=== PATIENT | male | born 1955 | race Caucasian/White ===

== ENCOUNTER 2020-08-02 10:12 | Inpatient (IN) | payer SELFPAY ==
[~2020-08-02] VITALS: Ht 188 cm; Wt 121.3 kg
[2020-08-02] MEDS ORDERED: ACETAMINOPHEN 500 MG TAB (TYLENOL) PO STA (10:22)
--- NOTE | 2020-08-02 10:22 | ED Integumentary General ---
General Chief Complaint: Skin/Wound Problems Stated Complaint: RT FOOT INFECTION History of Present Illness Date Seen by Provider: Aug 02, 2020 Time Seen by Provider: 10:22 Initial Comments 65-year-old male presents with infection of the right foot. Patient has been having an ulceration/drainage since about February. Reports over the about the last week to 2 weeks has got signally worse. He is now having increased redness pain and drainage. Patient has a history of osteomyelitis in the left foot from a similar ulcer in the past. Patient is diabetic and reports that his "sugars have been running high" patient was seen by his primary care provider today and found to have a 101 fever. Patient was also found to be tachycardic and his primary care office. Patient presents today after being seen at PCP for further evaluation. Patient denies cough, nausea, vomiting, diarrhea, shortness of breath. Allergies and Home Medications Allergies Coded Allergies: Penicillins (Verified Allergy, Unknown, 08/02/20) Patient Home Medication List Home Medication List Reviewed: Yes Review of Systems Review of Systems Constitutional: No chills; fever Respiratory: No cough, No short of breath Cardiovascular: No chest pain, No palpitations Gastrointestinal: No abdominal pain, No diarrhea, No nausea, No vomiting Genitourinary: no symptoms reported Musculoskeletal: see HPI Skin: see HPI Psychiatric/Neurological: No Symptoms Reported Endocrine: See HPI Past Syqhdgn-Ycwrkl-Qhpfsm Hx Past Med/Social Hx: Reviewed Nursing Past Med/Soc Hx Physical Exam Vital Signs Vital Signs - First Documented 08/02/20 10:17 Temp 37.9 Pulse 122 Resp 22 B/P (MAP) 164/86 (112) Pulse Ox 96 O2 Delivery Room Air Capillary Refill : General Appearance: obese HEENT: PERRL/EOMI Neck: full range of motion Cardiovascular: normal peripheral pulses, tachycardia Respiratory: lungs clear, normal breath sounds Gastrointestinal: non tender, soft Extremities: swelling (right foot) 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 Tender to palpation) Skin Problem Character: abscess, drainage, erythema, thickening, warm Progress/Results/Core Measures Results/Orders Lab Results Laboratory Tests Test 08/02/20 10:45 Range/Units White Blood Count 17.5 H 4.3-11.0 10^3/uL Red Blood Count 4.95 4.35-5.85 10^6/uL Hemoglobin 14.6 13.3-17.7 G/DL Hematocrit 43 40-54 % Mean Corpuscular Volume 88 80-99 FL Mean Corpuscular Hemoglobin 29 25-34 PG Mean Corpuscular Hemoglobin Concent 34 32-36 G/DL Red Cell Distribution Width 12.4 10.0-14.5 % Platelet Count 368 130-400 10^3/uL Mean Platelet Volume 9.0 7.4-10.4 FL Immature Granulocyte % (Auto) 1 % Neutrophils (%) (Auto) 83 H 42-75 % Lymphocytes (%) (Auto) 5 L 12-44 % Monocytes (%) (Auto) 11 0-12 % Eosinophils (%) (Auto) 0 0-10 % Basophils (%) (Auto) 0 0-10 % Neutrophils # (Auto) 14.5 H 1.8-7.8 X 10^3 Lymphocytes # (Auto) 0.9 L 1.0-4.0 X 10^3 Monocytes # (Auto) 2.0 H 0.0-1.0 X 10^3 Eosinophils # (Auto) 0.0 0.0-0.3 10^3/uL Basophils # (Auto) 0.1 0.0-0.1 10^3/uL Immature Granulocyte # (Auto) 0.1 0.0-0.1 10^3/uL Neutrophils % (Manual) 85 % Lymphocytes % (Manual) 3 % Monocytes % (Manual) 8 % Eosinophils % (Manual) 0 % Basophils % (Manual) 0 % Band Neutrophils 4 % Blood Morphology Comment NORMAL Sodium Level 134 L 135-145 MMOL/L Potassium Level 4.1 3.6-5.0 MMOL/L Chloride Level 95 L 98-107 MMOL/L Carbon Dioxide Level 23 21-32 MMOL/L Anion Gap 16 H 5-14 MMOL/L Blood Urea Nitrogen 25 H 7-18 MG/DL Creatinine 1.60 H 0.60-1.30 MG/DL Estimat Glomerular Filtration Rate 44 BUN/Creatinine Ratio 16 Glucose Level 262 H 70-105 MG/DL Lactic Acid Level 1.35 0.50-2.00 MMOL/L Calcium Level 9.7 8.5-10.1 MG/DL Corrected Calcium 9.7 8.5-10.1 MG/DL Total Bilirubin 2.5 H 0.1-1.0 MG/DL Aspartate Amino Transf (AST/SGOT) 23 5-34 U/L Alanine Aminotransferase (ALT/SGPT) 36 0-55 U/L Alkaline Phosphatase 95 40-136 U/L C-Reactive Protein 37.01 H <0.50 MG/DL Total Protein 7.6 6.4-8.2 GM/DL Albumin 4.0 3.2-4.5 GM/DL My Orders Orders - MCCOLLUM,ALIREZA L DO Cbc With Automated Diff (08/02/20 10:22) Comprehensive Metabolic Panel (08/02/20 10:22) Blood Culture (08/02/20 10:22) Crp Fs (08/02/20 10:22) Lactic Acid Analyzer (08/02/20 10:22) Metronidazole 500mg/100ml Ivpb (Flagyl 5 (08/02/20 10:30) Cefepime Injection (Maxipime Injection) (08/02/20 10:30) Vancomycin Injection (Vancomycin Injecti (08/02/20 10:30) Acetaminophen Tablet (Tylenol Tablet) (08/02/20 10:22) Foot 3 View Right (08/02/20 10:35) Manual Differential (08/02/20 10:45) Medications Given in ED Current Medications Medications Dose Ordered Sig/Erich Route Start Time Stop Time Status Last Admin Dose Admin Cefepime HCl 1000 mg/Sterile Water 10 ml @ 200 mls/hr ONCE ONCE IV 08/02/20 10:30 08/02/20 10:32 DC 08/02/20 11:04 200 MLS/HR Metronidazole 100 ml @ 100 mls/hr ONCE ONCE IV 08/02/20 10:30 08/02/20 11:29 DC 08/02/20 11:03 100 MLS/HR Vancomycin HCl 1000 mg/Sodium Chloride 250 ml @ 250 mls/hr ONCE ONCE IV 08/02/20 10:30 08/02/20 11:29 DC 08/02/20 11:04 250 MLS/HR Vital Signs/I&O 08/02/20 10:17 Temp 37.9 Pulse 122 Resp 22 B/P (MAP) 164/86 (112) Pulse Ox 96 O2 Delivery Room Air Departure Communication (Admissions) Time/Spoke to Admitting Phy: 11:45 Okay to admit for IV antibiotics and possible debridement Impression Primary Impression: Diabetic foot ulcers Qualified Codes: E11.621 - Type 2 diabetes mellitus with foot ulcer; L97.419 - Non-pressure chronic ulcer of right heel and midfoot with unspecified severity Additional Impression: Cellulitis of right foot Disposition: 30 STILL A PATIENT Condition: Stable Admissions Decision to Admit Reason: Admit from ER (General) Decision to Admit/Date: Aug 02, 2020 Time/Decision to Admit Time: 11:45 Departure-Patient Inst. Referrals: JESSICA JUAREZ MD (PCP) Primary Care Physician [facility] (Family) Primary Care Physician ALIREZA MCCOLLUM DO Aug 02, 2020 10:22
[2020-08-02] MEDS ORDERED: metroNIDAZOLE 500MG/100ML IVPB 100 ML IV ONE (10:30)
[2020-08-02] MEDS ORDERED: CEFEPIME INJECTION 1,000 MG in WATER (STERILE) FOR INJECTION 10 ML IV ONE (10:30)
[2020-08-02] MEDS ORDERED: VANCOMYCIN INJECTION 1,000 MG in NS (IVPB) 250 ML IV ONE (10:30)
[2020-08-02 10:56] LABS: HEMATOCRIT 43 % (40-54); HEMOGLOBIN 14.6 G/DL (13.3-17.7); LYMPHOCYTES % (AUTO) 5 % (12-44); MEAN CORPUSCULAR HEMOGLOBIN 29 PG (25-34); MEAN CORPUSCULAR HGB CONC 34 G/DL (32-36); MEAN CORPUSCULAR VOLUME 88 FL (80-99); NEUTROPHILS % (AUTO) 83 % (42-75); PLATELET COUNT 368 10^3/uL (130-400); WHITE BLOOD COUNT 17.5 10^3/uL (4.3-11.0)
[2020-08-02 10:57] LABS: BASOPHILS # (AUTO) 0.1 10^3/uL (0.0-0.1); BASOPHILS % (AUTO) 0 % (0-10); EOSINOPHILS % (AUTO) 0 % (0-10); LYMPHOCYTES # (AUTO) 0.9 X 10^3 (1.0-4.0); MONOCYTES % (AUTO) 11 % (0-12); NEUTROPHILS # (AUTO) 14.5 X 10^3 (1.8-7.8)
--- NOTE | 2020-08-02 11:20 | Diagnostic Imaging Report ---
HISTORY: Infection, pain, redness, swelling. COMPARISON: None. TECHNIQUE: Three views of the right foot. FINDINGS: There is a soft tissue defect at the plantar aspect of the right fourth metatarsophalangeal joint with multiple associated small hyperdensities, the largest measuring up to 8 mm in diameter. These are concerning for foreign bodies. No focal cortical erosion or periosteal reaction is seen. No acute fracture is seen. There are mild degenerative changes in the midfoot. There is marked soft tissue swelling about the right foot. There is a small plantar calcaneal enthesophyte. There is moderate hallux valgus. IMPRESSION: 1. Soft tissue defect plantar to the fourth MTP joint with multiple associated hyperdensities which may represent foreign bodies, measuring up to 8 mm. No radiographic findings of osteomyelitis are seen. Dictated by: Dictated on workstation # [id number]
[2020-08-02 11:33] LABS: POTASSIUM 4.1 MMOL/L (3.6-5.0)
[2020-08-02 11:34] LABS: BAND NEUTROPHILS 4 %; BASOPHILS % (MANUAL) 0 %; BILIRUBIN,TOTAL 2.5 MG/DL (0.1-1.0); CALCIUM 9.7 MG/DL (8.5-10.1); CREATININE SERUM 1.6 MG/DL (0.60-1.30); EOSINOPHILS % (MANUAL) 0 %; LYMPHOCYTES % (MANUAL) 3 %; MONOCYTES % (MANUAL) 8 %; NEUTROPHILS % (MANUAL) 85 %; RBC MORPH NORMAL; TOTAL PROTEIN 7.6 GM/DL (6.4-8.2)
--- NOTE | 2020-08-02 12:47 | NUR ---
Attempted to call report, no answer to call. Message left with community service specialist to have receiving nurse call for report when she is able. Informed community service specialist that patient is just now leaving with EMS.
[2020-08-02 13:35] VITALS: BP 136/61
--- NOTE | 2020-08-02 13:35 | NUR ---
PT ADMITTED TO ROOM 412 AT THIS TIME. PT ORIENTED TO ROOM/CALL LIGHT. PLAN OF CARE DISCUSSED WITH PT.
[2020-08-02] MEDS ORDERED: ALLO300T2 PO (15:39)
[2020-08-02] MEDS ORDERED: LISI1TAB26 PO (15:39)
[2020-08-02] MEDS ORDERED: ASPI325T32 PO (15:39)
[2020-08-02] MEDS ORDERED: METF-397 PO (15:39)
[2020-08-02] MEDS ORDERED: ATOR20TA66 PO (15:39)
--- NOTE | 2020-08-02 15:40 | NUR ---
PHARMACY NOTIFIED OF BRIDGE ORDERS FOR MEDICATIONS STILL NOT ON EMAR
--- NOTE | 2020-08-02 15:40 | NUR ---
SPOKE WITH THE PT, [facility] IN [place] TO COMPLETE THE MED REC METFORMIN 500MG FILLED 06-07-2020 #90/90DS [facility] THE FOLLOWING WERE DISPENSED FROM THE REPOSITORY: 06-07-2020 ATORVASTATIN 20MG #90/90DS 07-08-2020 LISINOPRIL/HCTZ 20/25MG #90/90DS 07-08-2020 ALLOPURINOL 300MG #90/90DS OTC MEDS: ASPIRIN 325MG PRN
--- NOTE | 2020-08-02 15:45 | NUR ---
DR COLEMAN NOTIFIED OF CONSULT. ORDER RECEIVED TO GIVE LOVENOX TODAY AND TO HOLD DOSE IN AM.
--- NOTE | 2020-08-02 15:52 | NUR ---
VANCOMYCIN DOSING SCR 1.60; ADJ BW 101 KG; CRCL ~ 68; GIVE ADDITIONAL VANC 1500 MG NOW THEN VANC 15 MG/KG X 131 KG ~ 2 GM Q24H CHECK TROUGH LEVEL 08/04 1300 HOLD DOSE AND CONTACT PHARMACY IF LEVEL IS GREATER THAN 20 OR LESS THAN 10
[2020-08-02] MEDS ORDERED: VANCOMYCIN 1500 MG/NS 500 ML IVPB IV NR ×2 (16:00)
[2020-08-02] MEDS: ENOXAPARIN 40 MG/0.4 ML (LOVENOX) SYR SC SCH (16:42)
[2020-08-02] MEDS: NS IV 1000 ML 1,000 ML IV SCH (16:42)
[2020-08-02 16:57] VITALS: BP 134/70
--- NOTE | 2020-08-02 17:10 | NUR ---
DR REYNOSO NOTIFIED VIA PHONE OF HR 126
[2020-08-02] MEDS ORDERED: NS IV 1000 ML 1,000 ML IV SCH (17:30)
[2020-08-02 19:00] VITALS: BP 137/71
[2020-08-02] MEDS: CEFEPIME 2,000 MG/SWFI 20 ML IV PUSH IV SCH ×2 (19:18)
--- NOTE | 2020-08-02 19:47 | History & Physical-Hospitalist ---
History of Present Illness HPI/Chief Complaint CC: Right DM foot ulcer with sepsis from cellulitis HPI: This is a 64yoWM clinic patient of Dr Avina who has a h/o DM who presents to the [facility] ER with right foot drainage. Patient was found to have poor hygiene and evidence of right DM foot ulcer with cellulitis. Patient was tachycardic and feverish. Abx broad spectrum given and Dr Jimenes has been consulted for debridement. Lovenox was given for DVT PPx. Dr Hernandez will assess him for vascular insuff and cardiac clearance. 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 Source: patient, old records Exam Limitations: no limitations Date Seen 08/02/20 Time Seen by a Provider: 18:00 Attending Physician Sherrell Reynoso Pankaj K MD Referring Physician Date of Admission Aug 02, 2020 at 13:30 Home Medications & Allergies Home Medications Reviewed patient Home Medication Reconciliation performed by pharmacy medication reconciliations planning technician and/or nursing. Patients Allergies have been reviewed. Allergies Allergies Coded Allergies Penicillins (Verified Allergy, Unknown, 08/02/20) Past Rhtcbds-Dxmjch-Unoqqp Hx Past Med/Social Hx: Reviewed Nursing Past Med/Soc Hx, Reviewed and Corrections made Patient Social History Marrital Status: single Employed/Student: employed Alcohol Use: Denies Use Recreational Drug Use: No Smoking Status: Never a Smoker 2nd Hand Smoke Exposure: No Recent Foreign Travel: No Contact w/other who traveled: No Recent Hopitalizations: No Recent Infectious Disease Expo: No Seasonal Allergies Seasonal Allergies: No Past Medical History Cardiac: High Cholesterol, Hypertension Musculoskeletal: Gout Endocrine: Diabetes, Non-Insulin dep Review of Systems Constitutional: see HPI, dizziness, malaise, weakness Skin: see HPI Physical Exam Physical Exam Vital Signs Vital Signs - First Documented 08/02/20 10:17 Temp 37.9 Pulse 122 Resp 22 B/P (MAP) 164/86 (112) Pulse Ox 96 O2 Delivery Room Air Capillary Refill : Less Than 3 Seconds Height, Weight, BMI Height: '" Weight: lbs. oz. kg; 35.36 BMI Method: General Appearance: No Apparent Distress, Chronically ill, Obese Eyes: Right Eye Normal Inspection, Right Eye PERRL HEENT: PERRL/EOMI, Normal ENT Inspection, Pharynx Normal, Moist Mucous Membranes Neck: Full Range of Motion, Normal Inspection, Non Tender Respiratory: Chest Non Tender, Lungs Clear, Normal Breath Sounds, No Accessory Muscle Use, No Respiratory Distress Cardiovascular: Regular Rate, Rhythm, No Edema, No Gallop, No JVD, No Murmur, Normal Peripheral Pulses Gastrointestinal: Normal Bowel Sounds, No Organomegaly, No Pulsatile Mass, Non Tender, Soft Back: Normal Inspection, No CVA Tenderness, No Vertebral Tenderness Extremity: Normal Capillary Refill, Normal Inspection, Normal Range of Motion, Non Tender, No Calf Tenderness, No Pedal Edema Neurologic/Psychiatric: Alert, Oriented x3, No Motor/Sensory Deficits, Normal Mood/Affect Skin: Normal Color, Warm/Dry, Other (foot ulcer with cellulitis) Lymphatic: No Adenopathy Results Results/Procedures Labs Laboratory Tests 08/02/20 10:45 Patient resulted labs reviewed. Assessment/Plan Admission Diagnosis Assessment: Sepsis Right DM foot ulcer with cellulitis DM OOC HTN Gout HLP Neuropathy MAGALI Plan: IV abx IVF Monitor sugars Dr Hernandez and Dr Jimenes consulted Admission Status: Inpatient Order (span 2 midnights) Reason for Inpatient Admission: sepsis with cellulitis Diagnosis/Problems Diagnosis/Problems (1) Sepsis (2) Diabetes (3) MAGALI (acute kidney injury) (4) Hypertension (5) Gout (6) Cellulitis of right foot Status: Acute (7) Diabetic foot ulcers Status: Acute Qualifiers: Diabetic foot ulcer location: midfoot Diabetes mellitus type: type 2 Laterality: right Non-pressure ulcer stage: unspecified non-pressure ulcer stage Qualified Codes: E11.621 - Type 2 diabetes mellitus with foot ulcer; L97.419 - Non-pressure chronic ulcer of right heel and midfoot with unspecified severity SHERRELL REYNOSO DO Aug 02, 2020 19:47
[2020-08-02] MEDS ORDERED: ONDANSETRON 4 MG/2 ML (SDV) Z0FRAN IVP PRN (20:30)
[2020-08-02] MEDS ORDERED: morphine INJ 10 MG/ML 1ML (SYR OR VIAL) IVP PRN (20:30)
[2020-08-02] MEDS ORDERED: DOCUSATE SODIUM 100 MG (COLACE) CAP PO PRN (20:30)
[2020-08-02] MEDS ORDERED: ACETAMINOPHEN 500 MG TAB (TYLENOL) PO PRN (20:30)
[2020-08-02] MEDS ORDERED: CALCIUM CARBONATE 500 MG (TUMS) TAB.CHEW PO PRN (20:30)
[2020-08-02] MEDS ORDERED: ALPRAZolam 0.25 MG (XANAX) TAB PO PRN (20:30)
[2020-08-02] MEDS ORDERED: diphenhydrAMINE 25 MG TAB (BENADRYL) PO PRN (20:30)
[2020-08-02] MEDS ORDERED: LOPERAMIDE 2 MG (IMODIUM) TABLET PO PRN (20:30)
[2020-08-02] MEDS: DAKIN'S 1/4 STRENGTH (0.125%) 473 ML BTL TOP SCH (22:15)
[2020-08-02] MEDS: SENNA W/DOCUSATE (SENOKOT S) TABLET PO SCH (22:17)
[2020-08-02 23:52] VITALS: BP 131/64
[2020-08-03] VITALS (10 sets, daily range): BP systolic 113–152; BP diastolic 53–81
[2020-08-03] MEDS: CEFEPIME 2,000 MG/SWFI 20 ML IV PUSH IV SCH ×6 (04:07→18:34)
[2020-08-03] MEDS ORDERED: NS IV 1000 ML 1,000 ML IV SCH (05:15)
[2020-08-03 05:19] LABS: BASOPHILS % (AUTO) 0 % (0-10); EOSINOPHILS # (AUTO) 0.1 10^3/uL (0.0-0.3); EOSINOPHILS % (AUTO) 1 % (0-10); HEMATOCRIT 39 % (40-54); HEMOGLOBIN 12.8 g/dL (13.3-17.7); LYMPHOCYTES # (AUTO) 0.9 10^3/uL (1.0-4.0); LYMPHOCYTES % (AUTO) 7 % (12-44); MEAN CORPUSCULAR HEMOGLOBIN 30 pg (25-34); MEAN CORPUSCULAR HGB CONC 33 g/dL (32-36); MEAN CORPUSCULAR VOLUME 90 fL (80-99); MEAN PLATELET VOLUME 9.3 fL (9.0-12.2); MONOCYTES # (AUTO) 1.5 10^3/uL (0.0-1.0); MONOCYTES % (AUTO) 12 % (0-12); NEUTROPHILS # (AUTO) 9.9 10^3/uL (1.8-7.8); NEUTROPHILS % (AUTO) 79 % (42-75); PLATELET COUNT 238 10^3/uL (130-400); WHITE BLOOD COUNT 12.4 10^3/uL (4.3-11.0)
[2020-08-03] MEDS: NS IV 1000 ML 1,000 ML IV SCH ×5 (05:28→23:38)
[2020-08-03 05:31] LABS: ALBUMIN 3.2 GM/DL (3.2-4.5); POTASSIUM 3.5 MMOL/L (3.6-5.0)
[2020-08-03 05:32] LABS: CALCIUM 8.8 MG/DL (8.5-10.1)
[2020-08-03 05:34] LABS: TOTAL PROTEIN 6.6 GM/DL (6.4-8.2)
[2020-08-03 05:35] LABS: BILIRUBIN,TOTAL 1.6 MG/DL (0.1-1.0)
[2020-08-03 05:37] LABS: CREATININE SERUM 1.63 MG/DL (0.60-1.30)
--- NOTE | 2020-08-03 06:48 | Consultation - Surgery ---
REBECCA LESTER,MED STUDENT 08/03/20 0648: History of Present Illness History of Present Illness Patient Consulted On(albin/time) 08/03/20 06:43 Date Seen by Provider: Aug 03, 2020 Time Seen by Provider: 06:20 History of Present Illness Pt is a 64 year old male with PMH of non-insulin dependent DM and osteomyelitis. He presented to the ED 08/02 complaining of a fever and increased pain and dr bains to a right foot wound. He notes that the wound started as a callus, but in February of 2020 it got soft and opened up. Over the past 2 weeks he has had increasing pain and drainage, and decided to seek medical care when he noticed a fever. Nothing he has tried has made the pain better. He has had similar foot wounds in the past which were debrided surgically, but has not had any amputations. Pt was subsequently admitted and surgery was consulted for management of the ulcer. Pt reports pain to his right foot and a fissure on the ball of his left foot. Denies chest pain, SOB, abdominal pain, nausea and vomiting. Allergies and Home Medications Allergies Coded Allergies: Penicillins (Verified Allergy, Unknown, 08/02/20) Home Medications Allopurinol 300 Mg Tablet, 300 MG PO DAILY, (Reported) Aspirin 325 Mg Tablet.dr, 325-650 MG PO Q6H PRN for PAIN-MILD (1-4) OR TEMPATURE, (Reported) Atorvastatin Calcium 20 Mg Tablet, 20 MG PO DAILY, (Reported) Lisinopril/Hydrochlorothiazide 1 Each Tablet, 1 EACH PO DAILY, (Reported) Metformin HCl 500 Mg Tablet, 500 MG PO DAILY, (Reported) Past Ulqmcal-Goezuy-Ntstgm Hx Patient Social History Smoking Status: Never a Smoker 2nd Hand Smoke Exposure: No Recent Hopitalizations: No Seasonal Allergies Seasonal Allergies: No Surgeries History of Surgeries: Yes (wound debridement, hernia repair) Respiratory History of Respiratory Disorde: No Cardiovascular History of Cardiac Disorders: No Cardiac Disorders: High Cholesterol, Hypertension Neurological History of Neurological Disord: No Genitourinary History of Genitourinary Disor: No Gastrointestinal History of Gastrointestinal Di: No Musculoskeletal History of Musculoskeletal Dis: No Musculoskeletal Disorders: Gout Endocrine History of Endocrine Disorders: Yes Endocrine Disorders: Diabetes, Non-Insulin dep HEENT History of HEENT Disorders: No Cancer History of Cancer: No Psychosocial History of Psychiatric Problem: No Integumentary History of Skin or Integumenta: No Review of Systems-General Constitutional: fever EENTM: No blurred vision, No double vision Respiratory: cough; No short of breath Cardiovascular: No chest pain, No edema Gastrointestinal: No abdominal pain, No constipation, No diarrhea, No nausea, No vomiting Genitourinary: No dysuria Musculoskeletal: other (R foot pain) Skin: change in color, other (open wound R plantar foot) Psychiatric/Neurological: Denies Headache Physical Exam-General Problems Physical Exam Vital Signs Vital Signs - First Documented 08/02/20 10:17 Temp 37.9 Pulse 122 Resp 22 B/P (MAP) 164/86 (112) Pulse Ox 96 O2 Delivery Room Air Capillary Refill : Less Than 3 Seconds General Appearance: no apparent distress, other (unkept) Eyes: Left Eye EOMI HEENT: No scleral icterus (R), No scleral icterus (L) Neck: non-tender Respiratory: lungs clear, no respiratory distress, no accessory muscle use Cardiovascular: regular rate, rhythm, no edema, no murmur Peripheral Pulses: 2+ Dorsalis Pedis (R), 2+ Left Dors-Pedis (L) Gastrointestinal: normal bowel sounds, non tender, soft; No distended Rectal: deferred Extremities: normal capillary refill Neurologic/Psychiatric: no motor/sensory deficits, alert, oriented x 3 Skin: warm/dry, other (R plantar foot with open, necrotic wound. L plantar foot with callus and fissure) Data Review Labs Laboratory Tests 08/02/20 10:45: White Blood Count 17.5H, Red Blood Count 4.95, Hemoglobin 14.6, Hematocrit 43, Mean Corpuscular Volume 88, Mean Corpuscular Hemoglobin 29, Mean Corpuscular Hemoglobin Concent 34, Red Cell Distribution Width 12.4, Platelet Count 368, Priscila n Platelet Volume 9.0, Immature Granulocyte % (Auto) 1, Neutrophils (%) (Auto) 83H, Lymphocytes (%) (Auto) 5L, Monocytes (%) (Auto) 11, Eosinophils (%) (Auto) 0, Basophils (%) (Auto) 0, Neutrophils # (Auto) 14.5H, Lymphocytes # (Auto) 0.9L , Monocytes # (Auto) 2.0H, Eosinophils # (Auto) 0.0, Basophils # (Auto) 0.1, Immature Granulocyte # (Auto) 0.1, Neutrophils % (Manual) 85, Lymphocytes % (Manual) 3, Monocytes % (Manual) 8, Eosinophils % (Manual) 0, Basophils % (Manual) 0, Band Neutrophils 4, Blood Morphology Comment NORMAL, Sodium Level 134L, Potassium Level 4.1, Chloride Level 95L, Carbon Dioxide Level 23, Anion Gap 16H, Blood Urea Nitrogen 25H, Creatinine 1.60H, Estimat Glomerular Filtration Rate 44, BUN/Creatinine Ratio 16, Glucose Level 262H, Lactic Acid Level 1.35, Calcium Level 9.7, Corrected Calcium 9.7, Total Bilirubin 2.5H, Aspartate Amino Transf (AST/SGOT) 23, Alanine Aminotransferase (ALT/SGPT) 36, Alkaline Phosphatase 95, C-Reactive Protein 37.01H, Total Protein 7.6, Albumin 4.0 08/03/20 04:40: White Blood Count 12.4H, Red Blood Count 4.28L, Hemoglobin 12.8L, Hematocrit 39L , Mean Corpuscular Volume 90, Mean Corpuscular Hemoglobin 30, Mean Corpuscular Hemoglobin Concent 33, Red Cell Distribution Width 12.2, Platelet Count 238, Mean Platelet Volume 9.3, Immature Granulocyte % (Auto) 1, Neutrophils (%) (Auto) 79H, Lymphocytes (%) (Auto) 7L, Monocytes (%) (Auto) 12, Eosinophils (%) (Auto) 1, Basophils (%) (Auto) 0, Neutrophils # (Auto) 9.9H, Lymphocytes # (Auto) 0.9L, Monocytes # (Auto) 1.5H, Eosinophils # (Auto) 0.1, Basophils # (Auto) 0.0, Immature Granulocyte # (Auto) 0.1, Sodium Level 137, Potassium Level 3.5L, Chloride Level 104, Carbon Dioxide Level 20L, Anion Gap 13, Blood Urea Nitrogen 25H, Creatinine 1.63H, Estimat Glomerular Filtration Rate 43, BUN/Creatinine Ratio 15, Glucose Level 201H, Calcium Level 8.8, Corrected Calcium 9.4, Total Bilirubin 1.6H, Aspartate Amino Transf (AST/SGOT) 20, Alanine Aminotransferase (ALT/SGPT) 31, Alkaline Phosphatase 76, Total Protein 6.6, Albumin 3.2, Triglycerides Level 106, Cholesterol Level 92, LDL Cholesterol Direct 53, VLDL Cholesterol 21, HDL Cholesterol 21L Assessment/Plan Assessment/Plan Assessment/Plan R plantar foot ulcer: has necrotic appearing tissue, possible foreign bodies seen on Xray. Plan for surgical debridement today L plantar foot callus and fissure: will assess need for possible debridement in OR today, continue local wound care. Leukocytosis- improving, continue cefepime and vancomycin, NS 100 Non-insulin dependent DM Medical management per primary team MICHAELLE JIMENES DO 08/03/20 1001: History of Present Illness History of Present Illness History of Present Illness 64 year old male with wound to right foot since February. Began as callus, and then opened up. Increasing pain and drainage from wound. Started having fever and redness to right foot. Has had multiple wounds to feet and healed. Has opening on let foot as well. Not been doing anything to the wounds. Patient no other complaints. Denies n/v fever sweats chill shortness of breath or chest pain. Allergies and Home Medications Allergies Coded Allergies: Penicillins (Verified Allergy, Unknown, 08/02/20) Home Medications Allopurinol 300 Mg Tablet, 300 MG PO DAILY, (Reported) Aspirin 325 Mg Tablet.dr, 325-650 MG PO Q6H PRN for PAIN-MILD (1-4) OR TEMPATURE, (Reported) Atorvastatin Calcium 20 Mg Tablet, 20 MG PO DAILY, (Reported) Lisinopril/Hydrochlorothiazide 1 Each Tablet, 1 EACH PO DAILY, (Reported) Metformin HCl 500 Mg Tablet, 500 MG PO DAILY, (Reported) Patient Home Medication List Home Medication List Reviewed: Yes Past Usvblhh-Vkesjc-Svbrbj Hx Reviewed Nursing Assessment Reviewed/Agree w Nursing PMH: Yes Family Medical History Significant Family History: No Pertinent Family Hx Review of Systems-General Constitutional: fever Physical Exam-General Problems Physical Exam General Appearance: no apparent distress, other (unkept) HEENT: PERRL/EOMI, normal ENT inspection Neck: non-tender Respiratory: lungs clear, no respiratory distress, no accessory muscle use Cardiovascular: regular rate, rhythm, no JVD Gastrointestinal: normal bowel sounds, non tender, soft Rectal: deferred Back: no CVA tenderness, no vertebral tenderness Extremities: non-tender, other (right cellulitis at foot, open wound with surrounding callus, scant drainage) Neurologic/Psychiatric: no motor/sensory deficits, alert, oriented x 3 Skin: warm/dry, other (R plantar foot with open, necrotic wound. L plantar foot with callus and fissure) Assessment/Plan Assessment/Plan Assessment/Plan R plantar foot ulcer: has necrotic appearing tissue, possible foreign bodies seen on Xray. Plan for surgical debridement today he understands risks and benefits to or L plantar foot callus and fissure: will assess need for possible debridement in OR today, continue local wound care. Leukocytosis- improving, continue cefepime and vancomycin, NS 100 Non-insulin dependent DM Medical management per primary team Supervisory-Addendum Brief Verification & Attestation Participated in pt care: history, MDM, physical Personally performed: exam, history, MDM, supervision of care Care discussed with: Medical Student Procedures: n/a Results interpretation: Verified all documentation Verification and Attestation of Medical Student E/M Service A medical student performed and documented this service in my presence. I reviewed and verified all information documented by the medical student and made modifications to such information, when appropriate. I personally performed the physical exam and medical decision making. Michaelle Jimenes, Aug 03, 2020,10:15 REBECCA LESTER,MED STUDENT Aug 03, 2020 06:48 MICHAELLE JIMENES DO Aug 03, 2020 10:01
[2020-08-03] MEDS: SENNA W/DOCUSATE (SENOKOT S) TABLET PO SCH ×2 (07:43→21:01)
[2020-08-03] MEDS: DAKIN'S 1/4 STRENGTH (0.125%) 473 ML BTL TOP SCH ×2 (07:43→21:04)
[2020-08-03] MEDS ORDERED: BUPIVACAINE 0.5% 30 ML (SENSORCAINE) VIAL ONE ×2 (08:26→10:10)
[2020-08-03] MEDS ORDERED: LIDOCAINE 1% INJ 20 ML 20 ML VIAL ONE (08:27)
[2020-08-03] MEDS ORDERED: ACETAMINOPHEN 325 MG TABLET PO PRN (08:30)
--- NOTE | 2020-08-03 08:43 | Consultation-Cardiology ---
HPI-Cardiology Cardiology Consultation Date of Consultation 08/03/20 Date of Admission Time Seen by Provider: 06:20 Indication: LLE nonhealing wound HPI Patient is a 64 y/o male with history of HTN, HLP, DM, nonhealing wound to right foot. Presented to ER with c/o fever x 4 days. Patient reports to me that he has chronic cough, but has had increase cough and dyspnea x 3-4 days. Denies any chest pain. Denies any dizziness or lightheadedness. Reports wound has been present since February 2020, but has noticed increased pain and discharge over the past week. Home Medications & Allergies Allergies: Coded Allergies: Penicillins (Verified Allergy, Unknown, 08/02/20) Home Medication List Reviewed: Yes [id number] Hx Patient Social History Marital Status: single Employed/Student: employed Recreational Drug Use: No Smoking Status: Never a Smoker 2nd Hand Smoke Exposure: No Recent Hopitalizations: No Review of Systems-General Review of Systems Constitutional: fever EENTM: No blurred vision, No double vision Respiratory: cough, short of breath; No wheezing Cardiovascular: No chest pain, No edema Gastrointestinal: No abdominal pain, No constipation, No diarrhea, No nausea, No vomiting Genitourinary: No dysuria Musculoskeletal: other (R foot pain) Skin: change in color, other (open wound R plantar foot) Psychiatric/Neurological: Denies Headache Reviewed Test Results Reviewed Test Results Lab Laboratory Tests 08/02/20 10:45: White Blood Count 17.5H, Red Blood Count 4.95, Hemoglobin 14.6, Hematocrit 43, Mean Corpuscular Volume 88, Mean Corpuscular Hemoglobin 29, Mean Corpuscular Hemoglobin Concent 34, Red Cell Distribution Width 12.4, Platelet Count 368, Mean Platelet Volume 9.0, Immature Granulocyte % (Auto) 1, Neutrophils (%) (Auto) 83H, Lymphocytes (%) (Auto) 5L, Monocytes (%) (Auto) 11, Eosinophils (%) (Auto) 0, Basophils (%) (Auto) 0, Neutrophils # (Auto) 14.5H, Lymphocytes # (Auto) 0.9L, Monocytes # (Auto) 2.0H, Eosinophils # (Auto) 0.0, Basophils # (Auto) 0.1, Immature Granulocyte # (Auto) 0.1, Neutrophils % (Manual) 85, Lymphocytes % (Manual) 3, Monocytes % (Manual) 8, Eosinophils % (Manual) 0, Basophils % (Manual) 0, Band Neutrophils 4, Blood Morphology Comment NORMAL, Sod ium Level 134L, Potassium Level 4.1, Chloride Level 95L, Carbon Dioxide Level 23, Anion Gap 16H, Blood Urea Nitrogen 25H, Creatinine 1.60H, Estimat Glomerular Filtration Rate 44, BUN/Creatinine Ratio 16, Glucose Level 262H, Lactic Acid Level 1.35, Calcium Level 9.7, Corrected Calcium 9.7, Total Bilirubin 2.5H, Aspartate Amino Transf (AST/SGOT) 23, Alanine Aminotransferase (ALT/SGPT) 36, Alkaline Phosphatase 95, C-Reactive Protein 37.01H, Total Protein 7.6, Albumin 4.0 08/03/20 04:40: White Blood Count 12.4H, Red Blood Count 4.28L, Hemoglobin 12.8L, Hematocrit 39L , Mean Corpuscular Volume 90, Mean Corpuscular Hemoglobin 30, Mean Corpuscular Hemoglobin Concent 33, Red Cell Distribution Width 12.2, Platelet Count 238, Mean Platelet Volume 9.3, Immature Granulocyte % (Auto) 1, Neutrophils (%) (Auto) 79H, Lymphocytes (%) (Auto) 7L, Monocytes (%) (Auto) 12, Eosinophils (%) (Auto) 1, Basophils (%) (Auto) 0, Neutrophils # (Auto) 9.9H, Lymphocytes # (Auto) 0.9L, Monocytes # (Auto) 1.5H, Eosinophils # (Auto) 0.1, Basophils # (Auto) 0.0, Immature Granulocyte # (Auto) 0.1, Sodium Level 137, Potassium Level 3.5L, Chloride Level 104, Carbon Dioxide Level 20L, Anion Gap 13, Blood Urea Nitrogen 25H, Creatinine 1.63H, Estimat Glomerular Filtration Rate 43, BUN/Creatinine Ratio 15, Glucose Level 201H, Calcium Level 8.8, Corrected Calcium 9.4, Total Bilirubin 1.6H, Aspartate Amino Transf (AST/SGOT) 20, Alanine Aminotransferase (ALT/SGPT) 31, Alkaline Phosphatase 76, Total Protein 6.6, Albumin 3.2, Triglycerides Level 106, Cholesterol Level 92, LDL Cholesterol Direct 53, VLDL Cholesterol 21, HDL Cholesterol 21L ECG Impression ECG Initial ECG Rhythm: S.Tach Physical Exam Physical Exam Vital Signs Vital Signs - First Documented 08/02/20 10:17 Temp 37.9 Pulse 122 Resp 22 B/P (MAP) 164/86 (112) Pulse Ox 96 O2 Delivery Room Air Capillary Refill : Less Than 3 Seconds Height, Weight, BMI Height: '" Weight: lbs. oz. kg; 35.36 BMI Method: General Appearance: No Apparent Distress, Chronically ill, Obese Eyes: Right Eye Normal Inspection, Right Eye PERRL; Left Eye EOMI HEENT: PERRL/EOMI, Normal ENT Inspection, Pharynx Normal, Moist Mucous Membranes Neck: Full Range of Motion, Normal Inspection, Non Tender Respiratory: Chest Non Tender, No Accessory Muscle Use, No Respiratory Distress, Other (diminished breath sounds) Cardiovascular: No Gallop, No JVD, No Murmur, Normal Peripheral Pulses, Tachycardia Gastrointestinal: Normal Bowel Sounds, No Organomegaly, No Pulsatile Mass, Non Tender, Soft Back: Normal Inspection, No CVA Tenderness, No Vertebral Tenderness Extremity: Normal Capillary Refill, Normal Inspection, Normal Range of Motion, Non Tender, No Calf Tenderness, Pedal Edema Neurologic/Psychiatric: Alert, Oriented x3, No Motor/Sensory Deficits, Normal Mood/Affect Skin: Normal Color, Warm/Dry, Other (foot ulcer with cellulitis) Lymphatic: No Adenopathy A/P-Cardiology Admission Diagnosis Right foot nonhealing wound Cellulitis RLE HTN HLP Assessment/Plan Right foot nonhealing wound with cellulitis. On IV antibiotic. Reports wound present since February 2020, has noticed increased pain and drainage over the past week. I will evaluate ABIs Dyspnea on exertion, fever, cough- patient reports chronic cough with increased cough and dypsnea on exertion over the past 4 days. I will evaluate rapid COVID, CXR, ABG. HTN- controlled, continue to monitor. HLP-maintained on statin as outpatient DM- management per PCP Thank you for allowing us to participate in the management of Mr. Goyal. This is Arlene Abernathy PA-C, as a scribe for Dr. Hernandez. Patient was not evaluated physically, I reviewed the record and ordered JOAN, discussed the management plan with Arlene, patient had fever and cough and increasing risk of COVID which resulted in ordering the test. Underwent debridement for his nonhealing wound, started on IV fluid to support his blood pressure and renal function I will continue on the current treatment and monitor closely, awaiting final COVID results There is possibility of peripheral arterial disease in spite of the normal JOAN. Will consider PVR and segmental pressure versus angiogram. I'm hesitant to proceed with angiogram at this time due to his renal insufficiency ARLENE TALAMANTES Aug 03, 2020 8:42 am KAPIL HERNANDEZ MD Aug 03, 2020 3:42 pm
--- NOTE | 2020-08-03 09:00 | Diagnostic Imaging Report ---
EXAMINATION: Ultrasound noninvasive extremity. INDICATION: Leg pain FINDINGS: Routine images were obtained. The ankle brachial indices are within normal limits. The right ankle brachial index is 1.02 and on the left is 1.04 (normal 1.00 or greater). IMPRESSION: 1. The ankle brachial indices are within normal limits. 2. If clinical concern regarding an underlying abnormality persists, then a dedicated bilateral lower extremity arterial Doppler exam should be obtained. Dictated by: Dictated on workstation # [id number]
[2020-08-03 09:22] LABS: ABG BASE EXCESS -3.1 MMOL/L (-2.5-2.5); ABG OXYGEN SATURATION 94 % (94-100); ABG PCO2 35 MMHG (35-45); ABG PH 7.39 (7.37-7.43); ABG PO2 69 MMHG (79-93); ABG TCO2 22.3 MMOL/L (21.0-31.0)
[2020-08-03 09:23] LABS: ALLENS TEST YES-POS; INSPIRED O2 ROOM AIR; PATIENT TEMP 36.1; VENTILATOR NO
[2020-08-03] MEDS ORDERED: LIDOCAINE PF 2% 5 ML (XYLOCAINE) VIAL ONE (09:57)
[2020-08-03] MEDS ORDERED: MIDAZOLAM 2 MG/2 ML (VERSED) VIAL ONE ×2 (09:57)
[2020-08-03] MEDS ORDERED: proPOfol 200 MG/20 ML (DIPRIVAN) VIAL IV ONE (09:57)
--- NOTE | 2020-08-03 10:00 | Diagnostic Imaging Report ---
EXAMINATION: Portable erect AP chest at 9:03 AM. INDICATION: Cough. COMPARISON: There are no prior studies available for comparison. FINDINGS: The heart size is within normal limits. The lungs are generally clear although the left retrocardiac region is not well penetrated. There is no sign of failure, pneumonia, or pleural effusion to indicate an acute abnormality. The mediastinum is not widened. The osseous structures are intact. IMPRESSION: 1. There is no evidence for an acute cardiopulmonary abnormality. 2. If clinical concern regarding an underlying abnormality persists, then a followup PA and lateral chest should be obtained. Dictated by: Dictated on workstation # [id number]
[2020-08-03] MEDS ORDERED: LIDOCAINE/EPI 1%-1:100,000 (XYLOCAINE) 50 ML ONE (10:10)
[2020-08-03] MEDS ORDERED: KETAMINE/NaCl 50 MG/5 ML SYRINGE (ED ONLY) ONE (10:42)
--- NOTE | 2020-08-03 10:56 | Progress Note - Hospitalist ---
MARTINA ALONSO MED STUDENT 08/03/20 1056: Subjective HPI/CC On Admission Date Seen by Provider: Aug 03, 2020 Time Seen by Provider: 08:30 CC: Right DM foot ulcer with sepsis from cellulitis HPI: This is a 64yoWM clinic patient of Dr Avina who has a h/o DM who presents to the [facility] ER with right foot drainage. Patient was found to have poor hygiene and evidence of right DM foot ulcer with cellulitis. Patient was tachycardic and feverish. Abx broad spectrum given and Dr Jimenes has been consulted for debridement. Lovenox was given for DVT PPx. Dr Hernandez will assess him for vascular insuff and cardiac clearance. 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 Subjective/Events-last exam Pt comfortable resting in bed Appears to be in poor hygiene Pain controlled Denies fever/chills since Saturday Denies N/V WBC improved down to 12.4 from 17.5 MAGALI still present with 25/1.63 BUN:Cr Focused Exam Lactate Level 08/02/20 10:45: Lactic Acid Level 1.35 Objective Exam Vital Signs Vital Signs Date Time Temp Pulse Resp B/P (MAP) Pulse Ox O2 Delivery O2 Flow Rate FiO2 08/03/20 08:00 36.1 137 20 119/53 (75) 95 Room Air Capillary Refill : Less Than 3 Seconds General Appearance: No Apparent Distress, Chronically ill HEENT: PERRL/EOMI, Normal ENT Inspection Neck: Normal Inspection, Supple Respiratory: Chest Non Tender, No Respiratory Distress Cardiovascular: Regular Rate, Rhythm, Normal Peripheral Pulses Gastrointestinal: Normal Bowel Sounds, Soft Back: Normal Inspection, No CVA Tenderness Extremity: Inflammation, Swelling, Other (foot ulceration (R)) Neurologic/Psychiatric: Alert, Oriented x3, No Motor/Sensory Deficits, Normal Mood/Affect Skin: Warm/Dry, Erythema, Mottled, Rash Results/Procedures Lab Laboratory Tests 08/03/20 04:40 Patient resulted labs reviewed. Assessment/Plan Assessment and Plan Assess & Plan/Chief Complaint Assessment: Sepsis Right DM foot ulcer with cellulitis DM OOC HTN Gout HLP Neuropathy MAGALI Plan: IV abx IVF Monitor sugars Dr Hernandez and Dr Jimenes consulted 08/03/20: Shower before surgery SHERRELL REYNOSO DO 08/04/20 0604: Subjective Subjective/Events-last exam Pt getting ready to go to surgery Cardiology will evaluate him for cardiac risk-stratification in addition to vascular evaluation of the lower extremities Creatinine 1.63 Heart rate remains at 137 and I gave him another liter bolus of fluid of normal saline He has a lot of body odor, will give him a good shower Covid test is pending Review of Systems General: Malaise Neurological: Weakness, Incoordination Objective Exam General Appearance: No Apparent Distress, WD/WN, Chronically ill Respiratory: Lungs Clear Cardiovascular: Regular Rate, Rhythm Assessment/Plan Assessment and Plan Assess & Plan/Chief Complaint 08/03/20: I&D ABX IVF Supervisory-Addendum Brief Verification & Attestation Participated in pt care: history, MDM, physical Personally performed: exam, history, MDM, supervision of care Care discussed with: Medical Student Procedures: n/a Results interpretation: Verified all documentation Verification and Attestation of Medical Student E/M Service A medical student performed and documented this service in my presence. I reviewed and verified all information documented by the medical student and made modifications to such information, when appropriate. I personally performed the physical exam and medical decision making. Sherrell Reynoso, Aug 04, 2020,06:04 MARTINA ALONSO MED STUDENT Aug 03, 2020 10:56 SHERRELL REYNOSO DO Aug 04, 2020 06:04
[2020-08-03] MEDS: VANCOMYCIN 2000 MG/NS 500 ML IVPB IV SCH ×2 (12:54)
--- NOTE | 2020-08-03 14:34 | Anesthesia-General Post-Op ---
MAC Patient Condition Mental Status/LOC: Same as Preop Cardiovascular: Satisfactory Nausea/Vomiting: Absent Respiratory: Satisfactory Pain: Controlled Complications: Absent Post Op Complications Complications None Follow Up Care/Instructions Patient Instructions None needed. Anesthesiology Discharge Order Discharge Order Patient was seen after the procedure and he was doing well, no complaints, stable vital signs, no apparent adverse anesthesia problems. BOLA SHAW DO Aug 03, 2020 14:34
[2020-08-03] MEDS: ENOXAPARIN 40 MG/0.4 ML (LOVENOX) SYR SC SCH (16:13)
[2020-08-03] MEDS: inSUlin ASPART (NovoLOG) 1 UNIT/0.01 ML (CHARGE PER UNIT) SC SCH (21:04)
[2020-08-04] MEDS: CEFEPIME 2,000 MG/SWFI 20 ML IV PUSH IV SCH ×6 (03:25→17:51)
[2020-08-04 04:00] VITALS: BP 134/84
--- NOTE | 2020-08-04 06:08 | NUR ---
DR. REYNOSO NOTIFIED OF PT'S RAPID AND PCR COVID LAB RESULTS BOTH BEING NEGATIVE. NEW ORDERS RECEIVED TO D/C ISOLATION
[2020-08-04] MEDS: inSUlin ASPART (NovoLOG) 1 UNIT/0.01 ML (CHARGE PER UNIT) SC SCH ×4 (06:12→21:55)
[2020-08-04 06:31] LABS: BASOPHILS % (AUTO) 0 % (0-10); EOSINOPHILS # (AUTO) 0.2 10^3/uL (0.0-0.3); EOSINOPHILS % (AUTO) 2 % (0-10); HEMATOCRIT 35 % (40-54); HEMOGLOBIN 11.5 g/dL (13.3-17.7); LYMPHOCYTES # (AUTO) 0.9 10^3/uL (1.0-4.0); LYMPHOCYTES % (AUTO) 9 % (12-44); MEAN CORPUSCULAR HEMOGLOBIN 30 pg (25-34); MEAN CORPUSCULAR HGB CONC 33 g/dL (32-36); MEAN CORPUSCULAR VOLUME 91 fL (80-99); MEAN PLATELET VOLUME 9.3 fL (9.0-12.2); MONOCYTES % (AUTO) 9 % (0-12); NEUTROPHILS # (AUTO) 8.4 10^3/uL (1.8-7.8); NEUTROPHILS % (AUTO) 79 % (42-75); PLATELET COUNT 245 10^3/uL (130-400); WHITE BLOOD COUNT 10.5 10^3/uL (4.3-11.0)
[2020-08-04 06:39] LABS: ALBUMIN 3.1 GM/DL (3.2-4.5)
[2020-08-04 06:40] LABS: POTASSIUM 3.7 MMOL/L (3.6-5.0)
[2020-08-04 06:41] LABS: CALCIUM 8.3 MG/DL (8.5-10.1)
[2020-08-04 06:42] LABS: TOTAL PROTEIN 6.5 GM/DL (6.4-8.2)
[2020-08-04 06:44] LABS: BILIRUBIN,TOTAL 1.1 MG/DL (0.1-1.0)
[2020-08-04 06:46] LABS: CREATININE SERUM 1.38 MG/DL (0.60-1.30)
--- NOTE | 2020-08-04 07:04 | Progress Note - Surgery ---
REBECCA LESTER,MED STUDENT 08/04/20 0704: Subjective Date Seen by a Provider: Aug 04, 2020 Time Seen by a Provider: 06:40 Subjective/Events-last exam Pt seen and eamined this AM. No acute events overnight. States he is not in any pain at the moment. Denies fever, chills, chest pain, SOB, n/v or abdominal pain. Review of Systems General: No Chills HEENT: No Head Aches Pulmonary: No Dyspnea; Cough Cardiovascular: Edema; No: Chest Pain Gastrointestinal: No: Nausea, Vomiting, Abdominal Pain Neurological: Numbness; No: Weakness Focused Exam Lactate Level 08/02/20 10:45: Lactic Acid Level 1.35 Objective Exam Vital Signs Date Time Temp Pulse Resp B/P (MAP) Pulse Ox O2 Delivery O2 Flow Rate FiO2 08/04/20 04:00 36.4 102 20 134/84 (101) 96 Room Air 08/03/20 23:58 37.0 105 22 137/76 (96) 92 Room Air 08/03/20 23:30 92 Room Air 08/03/20 20:55 Room Air 08/03/20 19:16 37.0 108 18 145/76 (99) 95 Room Air 08/03/20 15:49 37.1 105 18 152/81 (104) 93 Room Air 08/03/20 14:34 36.1 102 20 124/58 (80) 97 Room Air 08/03/20 11:30 Room Air 08/03/20 11:30 37.6 18 118/65 (82) 95 Room Air 08/03/20 11:20 18 113/58 (76) 95 Room Air 08/03/20 11:17 Room Air 08/03/20 11:10 18 114/58 (76) 96 Room Air 08/03/20 11:05 38.0 16 117/55 (75) 95 Room Air 08/03/20 11:05 Room Air 08/03/20 08:00 Room Air 08/03/20 08:00 36.1 137 20 119/53 (75) 95 Room Air I & O 08/04/20 07:00 Intake Total 4955 ml Output Total 2905 ml Balance 2050 ml Capillary Refill : Less Than 3 SecondsLess Than 3 Seconds General Appearance: No Apparent Distress, Other (unkept) HEENT: PERRL/EOMI; No Scleral Icterus (L), No Scleral Icterus (R) Respiratory: Lungs Clear, No Accessory Muscle Use, No Respiratory Distress Cardiovascular: No Murmur, Tachycardia Peripheral Pulses: 2+ Dorsalis Pedis (R), 2+ Left Dors-Pedis (L) Gastrointestinal: normal bowel sounds, non tender, soft Extremity: Normal Capillary Refill, Inflammation (RLE, slightly improved from yesterday), Other (chronic venous stasis changes LLE) Neurologic/Psychiatric: Alert, Oriented x3, Sensory Deficit (R lateral foot numbness) Skin: Warm/Dry, Erythema (RLE), Other (Bilateral foot wounds, dressings c/d/i) Results Lab Laboratory Tests 08/03/20 08:35: Coronavirus 2019 ([facility]OR[facility]) Negative 08/03/20 09:05: Blood Gas Puncture Site L RAD, Blood Gas Patient Temperature 36.1, Arterial Blood pH 7.39, Arterial Blood Partial Pressure CO2 35, Arterial Blood Partial Pressure O2 69L, Arterial Blood HCO3 21L, Arterial Blood Total CO2 22.3, Art erial Blood Oxygen Saturation 94, Arterial Blood Base Excess -3.1L, Shahbaz Test YES-POS, Blood Gas Ventilator Setting NO, Blood Gas Inspired Oxygen ROOM AIR 08/03/20 09:25: Coronavirus (COVID-19)(PCR) Negative 08/03/20 20:08: Glucometer 210H 08/04/20 05:38: Glucometer 166H 08/04/20 06:19: White Blood Count 10.5, Red Blood Count 3.88L, Hemoglobin 11.5L, Hematocrit 35L, Mean Corpuscular Volume 91, Mean Corpuscular Hemoglobin 30, Mean Corpuscular Hemoglobin Concent 33, Red Cell Distribution Width 12.2, Platelet Count 245, Mean Platelet Volume 9.3, Immature Granulocyte % (Auto) 1, Neutrophils (%) (Auto) 79H, Lymphocytes (%) (Auto) 9L, Monocytes (%) (Auto) 9, Eosinophils (%) (Auto) 2, Basophils (%) (Auto) 0, Neutrophils # (Auto) 8.4H, Lymphocytes # (Auto) 0.9L, Monocytes # (Auto) 1.0, Eosinophils # (Auto) 0.2, Basophils # (Auto) 0.0, Immature Granulocyte # (Auto) 0.1, Sodium Level 137, Potassium Level 3.7, Chloride Level 105, Carbon Dioxide Level 20L, Anion Gap 12, Blood Urea Nitrogen 23H, Creatinine 1.38H, Estimat Glomerular Filtration Rate 52, BUN/Creatinine Ratio 17, Glucose Level 184H, Calcium Level 8.3L, Corrected Calcium 9.0, Total Bilirubin 1.1H, Aspartate Amino Transf (AST/SGOT) 40H, Alanine Aminotransferase (ALT/SGPT) 44, Alkaline Phosphatase 90, Total Protein 6.5, Albumin 3.1L Microbiology 08/02/20 Blood Culture - Preliminary, Resulted No growth Assessment/Plan Assessment/Plan Assessment/Plan R plantar foot ulcer and L plantar foot callus and fissure:: s/p surgical debridement, continue local wound care. ABIs within normal limits Leukocytosis- improving, 10.5 this AM, continue cefepime and vancomycin COVID negative Non-insulin dependent DM NS@100, advance diet as tolerated Encourage ambulation, IS Medical management per primary team MICHAELLE JIMENES DO 08/04/20 1635: Subjective Subjective/Events-last exam Not having any pain, controlled. No n/v fever sweats chills shortness of breath or chest pain at this time. Objective Exam General Appearance: No Apparent Distress HEENT: PERRL/EOMI Respiratory: Chest Non Tender, No Accessory Muscle Use, No Respiratory Distress Cardiovascular: No Edema, No Murmur Gastrointestinal: normal bowel sounds, non tender, soft Extremity: Normal Capillary Refill, Other (left fissure wound plantar foot, right foot wound clean no necrotic tissue) Neurologic/Psychiatric: Alert, Oriented x3, Sensory Deficit (R lateral foot numbness) Skin: Warm/Dry, Erythema (RLE) Lymphatic: No Adenopathy Assessment/Plan Assessment/Plan Assessment/Plan R plantar foot ulcer and L plantar foot callus and fissure:: s/p surgical debridement, continue local wound care. ABIs within normal limits Leukocytosis- improving, 10.5 this AM, continue cefepime and vancomycin COVID negative Non-insulin dependent DM NS@100, advance diet as tolerated Encourage ambulation, IS Medical management per primary team Supervisory-Addendum Brief Verification & Attestation Participated in pt care: history, MDM, physical Personally performed: exam, history, MDM, supervision of care Care discussed with: Medical Student Procedures: n/a Results interpretation: Verified all documentation Verification and Attestation of Medical Student E/M Service A medical student performed and documented this service in my presence. I reviewed and verified all information documented by the medical student and made modifications to such information, when appropriate. I personally performed the physical exam and medical decision making. Michaelle Jimenes, Aug 04, 2020,16:38 REBECCA LESTER,MED STUDENT Aug 04, 2020 07:04 MICHAELLE JIMENES DO Aug 04, 2020 16:35
[2020-08-04 08:00] VITALS: BP 143/88
--- NOTE | 2020-08-04 08:30 | NUR ---
DR. FREEMAN AT BEDSIDE AND GAVE VERBAL ORDER FOR EKG.
[2020-08-04] MEDS: SENNA W/DOCUSATE (SENOKOT S) TABLET PO SCH ×2 (08:38→21:48)
[2020-08-04] MEDS: DAKIN'S 1/4 STRENGTH (0.125%) 473 ML BTL TOP SCH ×2 (08:38→21:55)
[2020-08-04] MEDS: NS IV 1000 ML 1,000 ML IV SCH (08:42)
[2020-08-04] MEDS ORDERED: morphine INJ 4 MG/ML 1 ML (VIAL/SYRINGE) IVP PRN (09:30)
--- NOTE | 2020-08-04 10:09 | Cardiology Progress Note ---
Subjective Date Seen by Provider: Aug 04, 2020 Time Seen by Provider: 10:07 Subjective/Events-last exam patient is laying down in bed, feeling better, no new complaint. Review of Systems General: No Chills, No Night Sweats; Fatigue, Malaise; No Appetite, No Other HEENT: No Head Aches, No Visual Changes, No Eye Pain, No Ear Pain, No Dysphasia, No Sinus Congestion, No Post Nasal Drip, No Sore Throat, No Other Pulmonary: No Dyspnea, No Cough, No Pleuritic Chest Pain, No Other Cardiovascular: No: Chest Pain, Palpitations, Orthopnea, Paroxysmal Noc. Dyspnea, Edema, Lt Headedness, Other Focused Exam Lactate Level 08/02/20 10:45: Lactic Acid Level 1.35 Objective-Cardiology Exam Last Set of Vital Signs Vital Signs 08/04/20 08/04/20 08:00 09:24 Temp 36.8 Pulse 92 Resp 20 B/P (MAP) 143/88 (106) Pulse Ox 97 O2 Delivery Room Air Capillary Refill : Less Than 3 SecondsLess Than 3 Seconds I&O Intake and Output 08/03/20 23:59 Intake Total 4155 ml Output Total 2205 ml Balance 1950 ml Intake Oral 640 ml IV Total 3515 ml Output Urine Total 2205 ml # Voids 2 General: Alert, Oriented X3, Cooperative HEENT: Atraumatic, PERRLA Neck: Supple, No JVD, No Thyromegaly Lungs: Clear to Auscultation, Normal Air Movement Heart: Regular Rate, Normal S1, Normal S2, No Murmurs Abdomen: Normal Bowel Sounds, Soft, No Tenderness, No Hepatosplenomegaly, No Masses Extremities: No Cyanosis, No Edema, Other (foot ulcer) Skin: Other (foot ulcer) Neuro: Normal Speech, Normal Tone, Sensation Intact Psych/Mental Status: Mental Status NL, Mood NL Results Lab Laboratory Tests 08/04/20 06:19 A/P-Cardiology Admission Diagnosis Right foot nonhealing wound Cellulitis RLE HTN HLP Assessment/Plan Right foot nonhealing wound with cellulitis. status post debridement, JOAN was normal but suggestion for arterial Doppler, I will evaluate arterial Doppler to rule out any obstructive peripheral arterial disease Dyspnea on exertion, , COVID 19 testing was negative. Followed and managed by primary care physician Acute renal insufficiency, improving on IV fluid. Continue to monitor HTN- controlled, continue to monitor. HLP-maintained on statin as outpatient DM- management per PCP KAPIL FREEMAN MD Aug 04, 2020 10:09
[2020-08-04 12:00] VITALS: BP 145/83
--- NOTE | 2020-08-04 12:15 | NUR ---
DR. REYNOSO ON FLOOR AND GAVE VERBAL ORDER TO STOP IV FLUIDS
--- NOTE | 2020-08-04 12:53 | Progress Note - Hospitalist ---
MARTINA ALONSO MED STUDENT 08/04/20 1253: Subjective HPI/CC On Admission Date Seen by Provider: Aug 04, 2020 Time Seen by Provider: 09:30 CC: Right DM foot ulcer with sepsis from cellulitis HPI: This is a 64yoWM clinic patient of Dr Avina who has a h/o DM who presents to the [facility] ER with right foot drainage. Patient was found to have poor hygiene and evidence of right DM foot ulcer with cellulitis. Patient was tachycardic and feverish. Abx broad spectrum given and Dr Jimenes has been consulted for debridement. Lovenox was given for DVT PPx. Dr Hernandez will assess him for vascular insuff and cardiac clearance. 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 Subjective/Events-last exam Pt comfortable resting in bed Hygiene improved today after shower Pain controlled Denies fever/chills/N/V/sob/chest pain WBC 10.5 MAGALI still present with 23/1.33 BUN:Cr Focused Exam Lactate Level 08/02/20 10:45: Lactic Acid Level 1.35 Objective Exam Vital Signs Vital Signs Date Time Temp Pulse Resp B/P (MAP) Pulse Ox O2 Delivery O2 Flow Rate FiO2 08/04/20 09:24 Room Air 08/04/20 08:00 36.8 92 20 143/88 (106) 97 Capillary Refill : Less Than 3 SecondsLess Than 3 Seconds General Appearance: No Apparent Distress, WD/WN HEENT: PERRL/EOMI, Normal ENT Inspection Neck: Full Range of Motion, Non Tender Respiratory: No Accessory Muscle Use, No Respiratory Distress Cardiovascular: Regular Rate, Rhythm, Normal Peripheral Pulses Gastrointestinal: Normal Bowel Sounds, Soft Back: Normal Inspection, No CVA Tenderness Extremity: Inflammation, Swelling Neurologic/Psychiatric: Alert, Oriented x3, No Motor/Sensory Deficits, Normal Mood/Affect Skin: Normal Color, Warm/Dry Results/Procedures Lab Laboratory Tests 08/04/20 06:19 Patient resulted labs reviewed. Assessment/Plan Assessment and Plan Assess & Plan/Chief Complaint Assessment: Sepsis Right DM foot ulcer with cellulitis DM OOC HTN Gout HLP Neuropathy MAGALI Plan: IV abx IVF Monitor sugars Dr Hernandez and Dr Jimenes consulted 08/03/20: Shower before surgery 08/04/20: Continue monitoring kidney function Wound care SHERRELL REYNOSO DO 08/05/20 0557: Subjective Subjective/Events-last exam Improved status Arterial USG will be performed ABx maintained Assessment/Plan Assessment and Plan Assess & Plan/Chief Complaint Appreciate Dr Hernandez and Dr Jimenes Supervisory-Addendum Brief Verification & Attestation Participated in pt care: history, MDM, physical Personally performed: exam, history, MDM, supervision of care Care discussed with: Medical Student Procedures: n/a Results interpretation: Verified all documentation Verification and Attestation of Medical Student E/M Service A medical student performed and documented this service in my presence. I reviewed and verified all information documented by the medical student and made modifications to such information, when appropriate. I personally performed the physical exam and medical decision making. Sherrell Reynoso, Aug 05, 2020,05:57 MARTINA ALONSO MED STUDENT Aug 04, 2020 12:53 SHERRELL REYNOSO DO Aug 05, 2020 05:57
[2020-08-04] MEDS ORDERED: TROUGH ORDER-PHARMACY XX NR (13:00)
[2020-08-04] MEDS: VANCOMYCIN 2000 MG/NS 500 ML IVPB IV SCH ×4 (14:17→16:31)
--- NOTE | 2020-08-04 15:00 | Diagnostic Imaging Report ---
PROCEDURE: US Bilateral lower extremity arterial. TECHNIQUE: Multiple real-time grayscale images are obtained through both lower extremity arterial systems with color Doppler imaging and color Doppler spectral analysis. INDICATION: Bilateral lower extremity arterial Doppler INDICATION: Leg pain and swelling The recent noninvasive ultrasound examination of the extremities performed on 08/03/2020 noted that the ankle brachial indices were within normal limits. On this exam, there is fairly good arterial blood flow in the common femoral and superficial femoral and popliteal arteries bilaterally. Triphasic and biphasic waveforms were seen within these segments of the arterial system. There was no abrupt alteration of the velocities to suggest a hemodynamically significant stenosis either. However, the waveform changes to monophasic in the trifurcation arteries bilaterally. There also appears to be diminished arterial blood flow to the left lower extremity. There is fairly good arterial blood flow to the right lower extremity. IMPRESSION: 1. 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 There also appears to be diminished arterial blood flow to the left lower extremity. 2. There is no hemodynamically significant stenosis of the common femoral, superficial femoral or popliteal arteries. 3. If further imaging is desired, then CTA of the aorta with bilateral runoffs would be recommended. Dictated by: Dictated on workstation # [id number]
--- NOTE | 2020-08-04 15:25 | NUR ---
VANCOMYCIN TROUGH 6.7 08/04 @ 1300. INCREASED DOSING FREQUENCY TO 2 GRAM BID. RECHECK VANCOMYCIN TROUGH 08/05 @ 1500.
[2020-08-04 16:00] VITALS: BP 144/89
[2020-08-04] MEDS: ENOXAPARIN 40 MG/0.4 ML (LOVENOX) SYR SC SCH (16:31)
--- NOTE | 2020-08-04 16:49 | NUR ---
RD ASSESSMENT PMHx: DM; hypercholesterolemia; HTN; gout; osteomyelitis; PT INTERACTION: Pt was awake and pleasant during nutrition assessment. Pt states current appetite is okay, but it had been poor prior to admit. Note avg PO intake 50-75% x1d, per chart review. Pt states following a regular diet at home, and has no issues with nausea, vomiting, constipation, or diarrhea, and that his last BM was 08/03. Note pt currently on bowel regimen per chart review. Pt states current DM management is "probably not good at all." Note recent HbA1c of 9.1 (08/03/20), per chart review. Pt states no recent wt changes. Note unable to determine recent wt hx, per chart review. Upon visual assessment, pt appears to be very well nourished with no visible signs of muscle/fat wasting, and a BMI of 37.2 (Obese class II for age). Note presence of wounds (R DM foot ulcer; L foot callus, fissure), per chart review. Given PO intake, wt hx, and visual assessment, pt does not meet criteria for malnutrition per ASPEN guidelines. Est. kcal needs: 8255-8487 kcal | 15-18 kcal/kg Est. Pro needs: 132-158 g Pro | 1.0-1.2 g Pro/kg PES STATEMENT: Inadequate oral intake (NI-2.1) related to loss of appetite, as evidenced by pt interview, and avg PO intake 50-75% x1d. Inadequate protein intake (NI-5.6.1) related to increased protein needs as evidenced by presence of wounds (R DM foot ulcer; L foot callus, fissure). INTERVENTION: Continue with current diet order of Regular diet. Pt may benefit from consistent CHO restriction as pt has hx of DM. Add Ensure HP (vary) to meals TID. Provides 160 kcal and 16 g Pro per serving for perceived benefit to wound healing. Offered diet education on DM management, but pt declined. May attempt to offer again prior to discharge. Will continue to follow and reassess as pt needs, intake, and status change. Valentino GALLEGOS, MS RD LD [phone] cell
--- NOTE | 2020-08-04 17:24 | OPERATIVE REPORT ---
DATE OF SERVICE: 08/03/2020 PREOPERATIVE DIAGNOSIS: Right plantar foot ulcer with necrotic tissue. POSTOPERATIVE DIAGNOSIS: Right plantar foot ulcer with necrotic tissue. PROCEDURE: Right ankle block and right foot debridement 2.7 x 2.7 x 1.6 cm. SURGEON: Michaelle Jimenes DO ANESTHESIA: MAC with block. ESTIMATED BLOOD LOSS: Minimal. COMPLICATIONS: None. INDICATIONS: The patient is a 64-year-old male with a right plantar foot ulcer with necrotic-appearing tissue. He also has some surrounding cellulitis. He understands risks and benefits of procedure and wished to proceed with procedure. Consent was signed in the chart. DESCRIPTION OF PROCEDURE: The patient was taken to the operating suite, was prepped and draped in sterile fashion. Surgical pause was performed. A right ankle block was performed. Once anesthetic effect covering 5 nerves and anesthetic effect took place. There was large callus present, which 15 blade scalpel was used to start debriding the callus the surrounding skin and into the subcutaneous tissue on dorsum of foot. There was some purulent material in the deep tissues, which culture was obtained. A 15 blade scalpel was used to continue to sharply debride the above-mentioned levels with a total dimensions of 2.7 x 2.7 x 1.6 cm. Down to healthy bleeding tissue. Hemostasis was achieved with cautery. The wound was then irrigated with copious amounts of irrigation and then packed and sterile bandage was applied. The patient tolerated procedure well without any complications, taken to recovery room in stable condition. Job ID: [id number] DocumentID: [id number] Dictated Date: 08/04/2020 15:26:29 Splitter Tender Date: 08/04/2020 17:23:05 Dictated By: MICHAELLE JIMENES DO [facility]
[2020-08-04 19:49] VITALS: BP 132/74
[2020-08-04] MEDS: HYDROcodone/APAP 5 MG/325 MG (LORTAB) TAB PO PRN (22:18)
[2020-08-04] MEDS: MELATONIN 3 MG TABLET PO PRN (22:18)
[2020-08-05] VITALS: BP 115/72
[2020-08-05] MEDS: CEFEPIME 2,000 MG/SWFI 20 ML IV PUSH IV SCH ×6 (03:49→18:36)
[2020-08-05] MEDS: VANCOMYCIN 2000 MG/NS 500 ML IVPB IV SCH ×2 (03:49)
[2020-08-05 04:00] VITALS: BP 124/75
[2020-08-05] MEDS: inSUlin ASPART (NovoLOG) 1 UNIT/0.01 ML (CHARGE PER UNIT) SC SCH ×4 (06:22→21:31)
[2020-08-05 06:31] LABS: BASOPHILS % (AUTO) 0 % (0-10); EOSINOPHILS # (AUTO) 0.3 10^3/uL (0.0-0.3); EOSINOPHILS % (AUTO) 4 % (0-10); HEMATOCRIT 36 % (40-54); HEMOGLOBIN 11.8 g/dL (13.3-17.7); LYMPHOCYTES # (AUTO) 0.9 10^3/uL (1.0-4.0); LYMPHOCYTES % (AUTO) 10 % (12-44); MEAN CORPUSCULAR HEMOGLOBIN 30 pg (25-34); MEAN CORPUSCULAR HGB CONC 33 g/dL (32-36); MEAN CORPUSCULAR VOLUME 91 fL (80-99); MEAN PLATELET VOLUME 9.6 fL (9.0-12.2); MONOCYTES % (AUTO) 11 % (0-12); NEUTROPHILS # (AUTO) 6.8 10^3/uL (1.8-7.8); NEUTROPHILS % (AUTO) 75 % (42-75); PLATELET COUNT 257 10^3/uL (130-400); WHITE BLOOD COUNT 9.1 10^3/uL (4.3-11.0)
[2020-08-05 06:53] LABS: ALANINE AMINOTRANSFERASE 102 U/L (0-55); ALBUMIN 2.9 GM/DL (3.2-4.5); ALKALINE PHOSPHATASE 105 U/L (40-136); BILIRUBIN,TOTAL 1.2 MG/DL (0.1-1.0); BUN/CREATININE RATIO 18; CALCIUM 8.5 MG/DL (8.5-10.1); CARBON DIOXIDE 20 MMOL/L (21-32); CHLORIDE 106 MMOL/L (98-107); CREATININE SERUM 1.12 MG/DL (0.60-1.30); GFR ESTIMATED > 60; GLUCOSE 173 MG/DL (70-105); POTASSIUM 3.8 MMOL/L (3.6-5.0); SODIUM 138 MMOL/L (135-145); TOTAL PROTEIN 6.2 GM/DL (6.4-8.2)
[2020-08-05 08:00] VITALS: BP 146/80
--- NOTE | 2020-08-05 08:46 | Progress Note - Surgery ---
FUNMILAYO BUTLER MED STUDENT 08/05/20 0846: Subjective Date Seen by a Provider: Aug 05, 2020 Time Seen by a Provider: 08:40 Subjective/Events-last exam Pt awake and alert upon entering. Pt denies pain, n/v, chills, and SOB. Pt complains of no BM since (08/03) received senakot while in room, [facility]. Pt has cough with sputum production. Pt not very engaging in evaluation. Review of Systems General: No Chills HEENT: Head Aches Pulmonary: No Dyspnea; Cough (sputum production) Gastrointestinal: Constipation; No: Nausea, Vomiting Musculoskeletal: No: other, neck pain, shoulder pain, arm pain, back pain, hand pain, leg pain, foot pain Neurological: Numbness Focused Exam Lactate Level 08/02/20 10:45: Lactic Acid Level 1.35 Objective Exam Vital Signs Date Time Temp Pulse Resp B/P (MAP) Pulse Ox O2 Delivery O2 Flow Rate FiO2 08/05/20 08:00 36.0 87 20 146/80 (102) 93 Room Air 08/05/20 04:00 36.6 83 18 124/75 (91) 96 Room Air 08/05/20 00:00 36.8 92 18 115/72 (86) 92 Room Air 08/04/20 21:55 Room Air 08/04/20 19:49 37.2 94 18 132/74 (93) 98 Room Air 08/04/20 16:00 36.7 94 18 144/89 (107) 96 Room Air 08/04/20 12:00 36.3 93 20 145/83 (103) 93 Room Air 08/04/20 09:24 Room Air I & O 08/05/20 07:00 Intake Total 3770 ml Output Total 3700 ml Balance 70 ml Capillary Refill : Less Than 3 SecondsLess Than 3 Seconds General Appearance: No Apparent Distress HEENT: PERRL/EOMI Neck: Full Range of Motion, Non Tender Respiratory: Chest Non Tender, Lungs Clear, Normal Breath Sounds, No Accessory Muscle Use, No Respiratory Distress Cardiovascular: Regular Rate, Rhythm, No Edema, No Murmur Peripheral Pulses: 2+ Dorsalis Pedis (R), 2+ Left Dors-Pedis (L) Gastrointestinal: normal bowel sounds, non tender, soft Extremity: Normal Capillary Refill, Pedal Edema (RLE pitting), Other (left fissure wound plantar foot, right foot wound clean no necrotic tissue) Neurologic/Psychiatric: Alert, Oriented x3, Depressed Affect, Sensory Deficit (R lateral foot numbness) Skin: Warm/Dry, Erythema (RLE) Lymphatic: No Adenopathy Results Lab Laboratory Tests 08/04/20 11:30: Glucometer 227H 08/04/20 13:05: Vancomycin Level Trough 6.7L 08/04/20 16:36: Glucometer 233H 08/04/20 20:04: Glucometer 236H 08/05/20 03:28: Glucometer 236H 08/05/20 05:24: Glucometer 161H 08/05/20 05:40: White Blood Count 9.1, Red Blood Count 3.96L, Hemoglobin 11.8L, Hematocrit 36L, Mean Corpuscular Volume 91, Mean Corpuscular Hemoglobin 30, Mean Corpuscular Hemoglobin Concent 33, Red Cell Distribution Width 12.1, Platelet Count 257, Mean Platelet Volume 9.6, Immature Granulocyte % (Auto) 1, Neutrophils (%) (Auto) 75, Lymphocytes (%) (Auto) 10L, Monocytes (%) (Auto) 11, Eosinophils (%) (Auto) 4, Basophils (%) (Auto) 0, Neutrophils # (Auto) 6.8, Lymphocytes # (Auto) 0.9L, Monocytes # (Auto) 1.0, Eosinophils # (Auto) 0.3, Basophils # (Auto) 0.0, Immature Granulocyte # (Auto) 0.1, Sodium Level 138, Potassium Level 3.8, Chloride Level 106, Carbon Dioxide Level 20L, Anion Gap 12, Blood Urea Nitrogen 20H, Creatinine 1.12, Estimat Glomerular Filtration Rate > 60, BUN/Creatinine Ratio 18, Glucose Level 173H, Calcium Level 8.5, Corrected Calcium 9.4, Total Bilirubin 1.2H, Aspartate Amino Transf (AST/SGOT) 91H, Alanine Aminotransferase (ALT/SGPT) 102H, Alkaline Phosphatase 105, Total Protein 6.2L, Albumin 2.9L Microbiology 08/03/20 Gram Stain - Final, Resulted 08/03/20 Anaerobic Culture, Resulted Pending 08/03/20 Surgical Culture - Preliminary, Resulted Viridans streptococcus Probable Coag Negative Staph 08/02/20 Blood Culture - Preliminary, Resulted No growth Assessment/Plan Assessment/Plan Assessment/Plan R plantar foot ulcer and L plantar foot callus and fissure:: s/p surgical debridement, continue local wound care. ABIs within normal limits Leukocytosis- improving, 9.1 this AM, continue cefepime and vancomycin COVID negative Non-insulin dependent DM NS@100, advance diet as tolerated Encourage ambulation, IS Medical management per primary team MICHAELLE JIMENES DO 08/05/20 1127: Subjective Subjective/Events-last exam No new complaints. Patient pain controlled. Denies n/v fever sweats chills shortness of breath or chest pain. Objective Exam General Appearance: No Apparent Distress HEENT: PERRL/EOMI Neck: Full Range of Motion, Non Tender Respiratory: Chest Non Tender, No Accessory Muscle Use, No Respiratory Distress Cardiovascular: Regular Rate, Rhythm, No JVD Gastrointestinal: normal bowel sounds, non tender, soft Extremity: Normal Capillary Refill, Pedal Edema (RLE pitting), Other (left fissure wound plantar foot, right foot wound clean no necrotic tissue) Skin: Warm/Dry, Erythema ( rle dorsal foot small blister) Lymphatic: No Adenopathy Assessment/Plan Assessment/Plan Assessment/Plan R plantar foot ulcer and L plantar foot callus and fissure:: s/p surgical debridement, continue local wound care. ABIs within normal limits RLE Cellulitis Leukocytosis- improving, 9.1 this AM, continue cefepime and vancomycin COVID negative Non-insulin dependent DM NS@100, advance diet as tolerated Encourage ambulation, IS Medical management per primary team Supervisory-Addendum Brief Verification & Attestation Participated in pt care: history, MDM, physical Personally performed: exam, history, MDM, supervision of care Care discussed with: Medical Student Procedures: n/a Results interpretation: Verified all documentation Verification and Attestation of Medical Student E/M Service A medical student performed and documented this service in my presence. I reviewed and verified all information documented by the medical student and made modifications to such information, when appropriate. I personally performed the physical exam and medical decision making. Michaelle Jimenes, Aug 05, 2020,11:29 FUNMILAYO BUTLER MED STUDENT Aug 05, 2020 08:46 MICHAELLE JIMENES DO Aug 05, 2020 11:27
[2020-08-05] MEDS: SENNA W/DOCUSATE (SENOKOT S) TABLET PO SCH ×2 (08:50→21:29)
[2020-08-05] MEDS: DAKIN'S 1/4 STRENGTH (0.125%) 473 ML BTL TOP SCH ×2 (10:29→21:29)
--- NOTE | 2020-08-05 11:38 | Progress Note - Hospitalist ---
MARTINA ALONSO MED STUDENT 08/05/20 1137: Subjective HPI/CC On Admission Date Seen by Provider: Aug 05, 2020 Time Seen by Provider: 08:10 CC: Right DM foot ulcer with sepsis from cellulitis HPI: This is a 64yoWM clinic patient of Dr Avina who has a h/o DM who presents to the [facility] ER with right foot drainage. Patient was found to have poor hygiene and evidence of right DM foot ulcer with cellulitis. Patient was tachycardic and feverish. Abx broad spectrum given and Dr Jimenes has been consulted for debridement. Lovenox was given for DVT PPx. Dr Hernandez will assess him for vascular insuff and cardiac clearance. 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 Subjective/Events-last exam Pt comfortable resting in chair Pain controlled WBC 9.1 10/08.12 BUN:Cr Pt reports constipation last BM 2 days ago Denies fever/chills/N/V/sob/chest pain Objective Exam Vital Signs Vital Signs Date Time Temp Pulse Resp B/P (MAP) Pulse Ox O2 Delivery O2 Flow Rate FiO2 08/05/20 08:00 Room Air 08/05/20 08:00 36.0 87 20 146/80 (102) 93 Capillary Refill : Less Than 3 SecondsLess Than 3 Seconds General Appearance: No Apparent Distress, WD/WN HEENT: PERRL/EOMI, Normal ENT Inspection Neck: Non Tender, Supple Respiratory: Chest Non Tender, No Respiratory Distress Cardiovascular: Regular Rate, Rhythm, Normal Peripheral Pulses Gastrointestinal: Non Tender, Soft Back: Normal Inspection, No CVA Tenderness Extremity: No Calf Tenderness, Inflammation, Swelling Neurologic/Psychiatric: Alert, Oriented x3, No Motor/Sensory Deficits, Normal Mood/Affect Results/Procedures Lab Laboratory Tests 08/05/20 05:40 Patient resulted labs reviewed. Assessment/Plan Assessment and Plan Assess & Plan/Chief Complaint Assessment: Sepsis Right DM foot ulcer with cellulitis DM OOC HTN Gout HLP Neuropathy MAGALI Plan: IV abx IVF Monitor sugars Dr Hernandez and Dr Jimenes consulted 08/03/20: Shower before surgery 08/04/20: Continue monitoring kidney function Wound care 08/05/20: Wound care Continue Abx SHERRELL REYNOSO DO 08/05/202104: Subjective Subjective/Events-last exam Wound assessed on foot Much improved status ABx maintained Objective Exam General Appearance: No Apparent Distress, WD/WN, Chronically ill Respiratory: Lungs Clear, Normal Breath Sounds Cardiovascular: Regular Rate, Rhythm Neurologic/Psychiatric: Alert, Oriented x3, No Motor/Sensory Deficits, Normal Mood/Affect Assessment/Plan Assessment and Plan Assess & Plan/Chief Complaint 08/05/20: Wound care Abx Supervisory-Addendum Brief Verification & Attestation Participated in pt care: history, MDM, physical Personally performed: exam, history, MDM, supervision of care Care discussed with: Medical Student Procedures: n/a Results interpretation: Verified all documentation Verification and Attestation of Medical Student E/M Service A medical student performed and documented this service in my presence. I reviewed and verified all information documented by the medical student and made modifications to such information, when appropriate. I personally performed the physical exam and medical decision making. Sherrell Reynoso, Aug 05, 2020,21:05 MARTINA ALONSO MED STUDENT Aug 05, 2020 11:37 SHERRELL REYNOSO DO Aug 05, 2020 21:05
[2020-08-05 12:00] VITALS: BP 130/60
--- NOTE | 2020-08-05 13:30 | NUR ---
stopped to change dressing and measure ulcer on patients foot. He explains, the nurse changed it once, and then it got changed a second time when the doctor wanted to look at it. Explained to patient I will not change the dressing today, but I will stop and check in with him on Saturday to measure the wound and re-dress it again. patient voices appreciation for this and understanding.
--- NOTE | 2020-08-05 14:16 | Cardiology Progress Note ---
Cardiology SOAP Progress Note Subjective: No cardiac complaints. Objective: I&O/Vital Signs 08/07/20 08/07/20 08/07/20 08/07/20 08:00 08:00 12:33 15:51 Temp 35.8 36.5 36.5 Pulse 88 83 87 Resp 20 20 18 B/P (MAP) 152/96 (114) 142/84 (103) 132/73 (92) Pulse Ox 95 98 95 O2 Delivery Room Air Room Air Room Air Room Air 08/07/20 00:00 Intake Total 1980 ml Output Total 2050 ml Balance -70 ml Constitutional: AAO x 3 Respiratory: chest is bilaterally symmetric, lungs clear to auscultation Cardiovascular: regular rate-rhythm, S1 and S2 Gastrointestional: soft, audible bowel sounds Extremities: other (cellulitis.), wound Neurologic/Psychiatric: no motor/sensory deficits, alert, normal mood/affect, oriented x 3 Results/Procedures: Labs Laboratory Tests 08/06/20 20:07: Glucometer 226H 08/07/20 06:03: Glucometer 207H 08/07/20 06:37: White Blood Count 8.2, Red Blood Count 4.43, Hemoglobin 13.0L, Hematocrit 40, Mean Corpuscular Volume 90, Mean Corpuscular Hemoglobin 29, Mean Corpuscular Hemoglobin Concent 33, Red Cell Distribution Width 12.0, Platelet Count 335, Mean Platelet Volume 9.4, Immature Granulocyte % (Auto) 3, Neutrophils (%) (Auto) 68, Lymphocytes (%) (Auto) 12, Monocytes (%) (Auto) 11, Eosinophils (%) (Auto) 6, Basophils (%) (Auto) 1, Neutrophils # (Auto) 5.6, Lymphocytes # (Auto) 1.0, Monocytes # (Auto) 0.9, Eosinophils # (Auto) 0.5H, Basophils # (Auto) 0.1, Immature Granulocyte # (Auto) 0.2H, Sodium Level 138, Potassium Level 4.1, Chloride Level 104, Carbon Dioxide Level 25, Anion Gap 9, Blood Urea Nitrogen 20H, Creatinine 1.13, Estimat Glomerular Filtration Rate > 60, BUN/Creatinine Ratio 18, Glucose Level 180H, Calcium Level 8.5, Corrected Calcium 9.2, Total Bilirubin 0.9, Aspartate Amino Transf (AST/SGOT) 65H, Alanine Aminotransferase (ALT/SGPT) 137H, Alkaline Phosphatase 111, Total Protein 6.9, Albumin 3.1L 08/07/20 11:32: Glucometer 252H 08/07/20 15:26: Glucometer 250H Microbiology 08/03/20 Gram Stain - Final, Resulted 08/03/20 Anaerobic Culture - Preliminary, Resulted Culture In Progress 08/03/20 Surgical Culture - Final, Resulted Gram Pos Mixed Bacterial Johana 08/02/20 Blood Culture - Final, Complete No growth A/P: Assessment/Dx: Right foot nonhealing wound Cellulitis RLE HTN HLP Plan: Right foot nonhealing wound with cellulitis. status post debridement, JOAN was normal. Arterial ultrasound shows possible below the knee disease. Patient will follow Dr. Hernandez. Dyspnea on exertion, , COVID 19 testing was negative. Followed and managed by primary care physician Acute renal insufficiency, improving on IV fluid. Continue to monitor HTN- controlled, continue to monitor. HLP-maintained on statin as outpatient DM- management per PCP Thank you for your consultation. Please call me if you have any questions. Eric Hardin MD, FACP, FACC, FSCAI, FHRS, CCDS Interventional Cardiology Cardiac Electrophysiology Vascular Medicine and Endovascular Interventions Agata HARDIN MD Aug 05, 2020 14:16
[2020-08-05] MEDS ORDERED: TROUGH ORDER-PHARMACY XX NR (15:00)
--- NOTE | 2020-08-05 15:21 | NUR ---
REPORT GIVEN TO LILY LARA. SHE WILL ASSUME CARE OF THE PATIENT AT THIS TIME.
[2020-08-05 15:50] VITALS: BP 147/82
[2020-08-05] MEDS: ENOXAPARIN 40 MG/0.4 ML (LOVENOX) SYR SC SCH (16:52)
[2020-08-05 19:56] VITALS: BP 142/71
[2020-08-05] MEDS: HYDROcodone/APAP 5 MG/325 MG (LORTAB) TAB PO PRN (21:29)
[2020-08-05] MEDS: MELATONIN 3 MG TABLET PO PRN (21:30)
[2020-08-06] VITALS (7 sets, daily range): BP systolic 119–152; BP diastolic 71–87
[2020-08-06] MEDS: CEFEPIME 2,000 MG/SWFI 20 ML IV PUSH IV SCH ×6 (03:29→18:38)
--- NOTE | 2020-08-06 05:08 | Progress Note - Hospitalist ---
Subjective HPI/CC On Admission Date Seen by Provider: Aug 06, 2020 Time Seen by Provider: 09:00 CC: Right DM foot ulcer with sepsis from cellulitis HPI: This is a 64yoWM clinic patient of Dr Avina who has a h/o DM who presents to the [facility] ER with right foot drainage. Patient was found to have poor hygiene and evidence of right DM foot ulcer with cellulitis. Patient was tachycardic and feverish. Abx broad spectrum given and Dr Jimenes has been consulted for debridement. Lovenox was given for DVT PPx. Dr Hernandez will assess him for vascular insuff and cardiac clearance. 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 Subjective/Events-last exam No issues Wound care change No new concerns IV abx maintained Review of Systems General: Fatigue, Malaise Objective Exam Vital Signs Vital Signs Date Time Temp Pulse Resp B/P (MAP) Pulse Ox O2 Delivery O2 Flow Rate FiO2 08/07/20 03:58 36.0 80 20 159/82 (107) 94 Room Air Capillary Refill : Less Than 3 SecondsLess Than 3 Seconds General Appearance: No Apparent Distress, WD/WN, Chronically ill Respiratory: Chest Non Tender, Lungs Clear, Normal Breath Sounds, No Accessory Muscle Use, No Respiratory Distress Cardiovascular: Regular Rate, Rhythm, No Edema, No Gallop, No JVD, No Murmur, Normal Peripheral Pulses Neurologic/Psychiatric: Alert, Oriented x3, No Motor/Sensory Deficits, Normal Mood/Affect Results/Procedures Lab Patient resulted labs reviewed. Assessment/Plan Assessment and Plan Assess & Plan/Chief Complaint Assessment: Sepsis DM foot ulcer with cellulitis and abscess s/p debridement DM OOC HTN Plan: IV abx Wound care Diagnosis/Problems Diagnosis/Problems (1) Sepsis (2) Diabetes (3) MAGALI (acute kidney injury) (4) Hypertension (5) Gout (6) Cellulitis of right foot Status: Acute (7) Diabetic foot ulcers Status: Acute Qualifiers: Diabetic foot ulcer location: midfoot Diabetes mellitus type: type 2 Laterality: right Non-pressure ulcer stage: unspecified non-pressure ulcer stage Qualified Codes: E11.621 - Type 2 diabetes mellitus with foot ulcer; L97.419 - Non-pressure chronic ulcer of right heel and midfoot with unspecified severity JULIA REYNOSO DO Aug 06, 2020 05:08
[2020-08-06 05:32] LABS: BASOPHILS # (AUTO) 0.1 10^3/uL (0.0-0.1); BASOPHILS % (AUTO) 1 % (0-10); EOSINOPHILS # (AUTO) 0.4 10^3/uL (0.0-0.3); EOSINOPHILS % (AUTO) 5 % (0-10); HEMATOCRIT 38 % (40-54); HEMOGLOBIN 12.5 g/dL (13.3-17.7); LYMPHOCYTES # (AUTO) 0.8 10^3/uL (1.0-4.0); LYMPHOCYTES % (AUTO) 9 % (12-44); MEAN CORPUSCULAR HEMOGLOBIN 30 pg (25-34); MEAN CORPUSCULAR HGB CONC 33 g/dL (32-36); MEAN CORPUSCULAR VOLUME 90 fL (80-99); MEAN PLATELET VOLUME 9.4 fL (9.0-12.2); MONOCYTES % (AUTO) 11 % (0-12); NEUTROPHILS # (AUTO) 6.8 10^3/uL (1.8-7.8); NEUTROPHILS % (AUTO) 74 % (42-75); PLATELET COUNT 284 10^3/uL (130-400); WHITE BLOOD COUNT 9.3 10^3/uL (4.3-11.0)
[2020-08-06] MEDS: inSUlin ASPART (NovoLOG) 1 UNIT/0.01 ML (CHARGE PER UNIT) SC SCH ×4 (06:32→21:14)
[2020-08-06 07:01] LABS: ALBUMIN 3.1 GM/DL (3.2-4.5); CHLORIDE 104 MMOL/L (98-107); POTASSIUM 4.2 MMOL/L (3.6-5.0); SODIUM 138 MMOL/L (135-145)
[2020-08-06 07:02] LABS: CALCIUM 8.6 MG/DL (8.5-10.1)
[2020-08-06 07:03] LABS: GLUCOSE 181 MG/DL (70-105); TOTAL PROTEIN 6.7 GM/DL (6.4-8.2)
[2020-08-06 07:04] LABS: CARBON DIOXIDE 22 MMOL/L (21-32)
[2020-08-06 07:05] LABS: BILIRUBIN,TOTAL 1.2 MG/DL (0.1-1.0)
[2020-08-06 07:07] LABS: ALKALINE PHOSPHATASE 113 U/L (40-136); CREATININE SERUM 1.19 MG/DL (0.60-1.30); GFR ESTIMATED > 60
[2020-08-06 07:08] LABS: BUN/CREATININE RATIO 17
[2020-08-06 07:10] LABS: ALANINE AMINOTRANSFERASE 150 U/L (0-55)
[2020-08-06] MEDS: DAKIN'S 1/4 STRENGTH (0.125%) 473 ML BTL TOP SCH ×2 (09:37→21:14)
[2020-08-06] MEDS: SENNA W/DOCUSATE (SENOKOT S) TABLET PO SCH ×2 (09:38→21:13)
--- NOTE | 2020-08-06 11:21 | Progress Note - Surgery ---
REBECCA LESTER,MED STUDENT 08/06/20 1121: Subjective Date Seen by a Provider: Aug 06, 2020 Time Seen by a Provider: 09:20 Subjective/Events-last exam Pt seen and examined this AM. Dressings are being changed as I enter the room. No acute events overnight. Pt denies any pain and states he is able to walk around on his own. Wakes up feeling feverish sometimes. Denies chest pain, SOB, abdominal pain, n/v. Review of Systems General: Night Sweats; No Fatigue HEENT: No Head Aches Pulmonary: No Dyspnea; Cough Cardiovascular: No: Chest Pain, Edema Gastrointestinal: No: Nausea, Vomiting, Abdominal Pain Musculoskeletal: No: leg pain, foot pain Neurological: Numbness (BLE); No: Weakness, Confusion Objective Exam Vital Signs Date Time Temp Pulse Resp B/P (MAP) Pulse Ox O2 Delivery O2 Flow Rate FiO2 08/06/20 08:38 35.9 87 20 150/82 (104) 93 Room Air 08/06/20 03:49 37.0 89 18 129/75 (93) 93 Room Air 08/06/20 00:00 36.5 89 18 119/71 (87) 94 Room Air 08/05/20 21:00 Room Air 08/05/20 19:56 37.4 89 17 142/71 (94) 98 Room Air 08/05/20 15:50 36.4 89 18 147/82 (103) 96 Room Air 08/05/20 12:00 36.0 80 20 130/60 (83) 90 Room Air I & O 08/06/20 07:00 Intake Total 2980 ml Output Total 3400 ml Balance -420 ml Capillary Refill : Less Than 3 SecondsLess Than 3 Seconds General Appearance: No Apparent Distress, WD/WN HEENT: PERRL/EOMI, Moist Mucous Membranes Respiratory: Lungs Clear, No Accessory Muscle Use, No Respiratory Distress, Decreased Breath Sounds (bilateral bases) Cardiovascular: Regular Rate, Rhythm, No Murmur Peripheral Pulses: 2+ Dorsalis Pedis (R), 2+ Left Dors-Pedis (L), 2+ Radial Pulses (R), 2+ Radial Pulses (L) Gastrointestinal: normal bowel sounds, non tender, soft; No distended Extremity: No Calf Tenderness, Inflammation (RLE), Other (chronic venous stasis changes to LLE) Neurologic/Psychiatric: Alert, Oriented x3, Normal Mood/Affect Skin: Warm/Dry, Erythema ( RLE), Other (debrided wound to R plantar foot, no necrotic tissue or surrounding erythema. Fissure to L plantar foot, dry, no erythema surrounding) Results Lab Laboratory Tests 08/05/20 15:27: Glucometer 207H 08/05/20 16:44: Glucometer 184H 08/05/20 21:04: Glucometer 215H 08/06/20 05:05: White Blood Count 9.3, Red Blood Count 4.19L, Hemoglobin 12.5L, Hematocrit 38L, Mean Corpuscular Volume 90, Mean Corpuscular Hemoglobin 30, Mean Corpuscular Hemoglobin Concent 33, Red Cell Distribution Width 12.1, Platelet Count 284, Mean Platelet Volume 9.4, Immature Granulocyte % (Auto) 1, Neutrophils (%) (Auto) 74, Lymphocytes (%) (Auto) 9L, Monocytes (%) (Auto) 11, Eosinophils (%) (Auto) 5, Basophils (%) (Auto) 1, Neutrophils # (Auto) 6.8, Lymphocytes # (Auto) 0.8L, Monocytes # (Auto) 1.0, Eosinophils # (Auto) 0.4H, Basophils # (Auto) 0.1, Immature Granulocyte # (Auto) 0.1, Sodium Level 138, Potassium Level 4.2, Chloride Level 104, Carbon Dioxide Level 22, Anion Gap 12, Blood Urea Nitrogen 20H, Creatinine 1.19, Estimat Glomerular Filtration Rate > 60, BUN/Creatinine Ratio 17, Glucose Level 181H, Calcium Level 8.6, Corrected Calcium 9.3, Total Bilirubin 1.2H, Aspartate Amino Transf (AST/SGOT) 100H, Alanine Aminotransferase (ALT/SGPT) 150H, Alkaline Phosphatase 113, Total Protein 6.7, Albumin 3.1L 08/06/20 06:29: Glucometer 197H Microbiology 08/03/20 Gram Stain - Final, Resulted 08/03/20 Anaerobic Culture - Preliminary, Resulted Culture In Progress 08/03/20 Surgical Culture - Preliminary, Resulted Viridans streptococcus Probable Coag Negative Staph See Comments 08/02/20 Blood Culture - Preliminary, Resulted No growth Assessment/Plan Assessment/Plan Assessment/Plan R plantar foot ulcer: s/p surgical debridement, continue local wound care. ABIs within normal limits L plantar foot callus and fissure: add bacitracin or moisturizer, local wound care. RLE Cellulitis Leukocytosis- improving, 9.3 this AM, continue cefepime and vancomycin COVID negative Non-insulin dependent DM advance diet as tolerated Encourage ambulation, IS Medical management per primary team PRANAY SOLOMON DO 08/06/20 1237: Subjective Time Seen by a Provider: 11:31 Subjective/Events-last exam Pt seen and examined, pt denies any changes. States pain is controlled and he is ambulating. Pt has fissure on left foot that nurse states they are putting Dakins on. Review of Systems General: Night Sweats; No Fatigue HEENT: No Head Aches Pulmonary: No Dyspnea; Cough Cardiovascular: No: Chest Pain Gastrointestinal: No: Nausea, Vomiting, Abdominal Pain Objective Exam General Appearance: No Apparent Distress, WD/WN HEENT: PERRL/EOMI, Moist Mucous Membranes Respiratory: Lungs Clear, No Accessory Muscle Use, No Respiratory Distress Cardiovascular: Regular Rate, Rhythm, No Murmur Gastrointestinal: normal bowel sounds, non tender, soft Extremity: Inflammation (RLE), Other (chronic venous stasis changes to LLE) Assessment/Plan Assessment/Plan Assessment/Plan R plantar foot ulcer: s/p surgical debridement, continue local wound care. ABIs within normal limits L plantar foot callus and fissure: add bacitracin or moisturizer, local wound care - stop Dakins (which is only for debridement). RLE Cellulitis Leukocytosis- improving, 9.3 this AM, continue cefepime and vancomycin COVID negative Non-insulin dependent DM advance diet as tolerated, Encourage ambulation and IS Supervisory-Addendum Brief Verification & Attestation Participated in pt care: history, MDM, physical Personally performed: exam, history, MDM Care discussed with: Medical Student Procedures: n/a Verification and Attestation of Medical Student E/M Service A medical student performed and documented this service. I then reviewed and verified all information documented by the medical student and made modifications to such information, when appropriate. I personally performed a physical exam, medical decision making and then discussed any differences between the notes and made revisions as necessary to create one note. Pranay Solomon , 08/06/20 , 12:37 REBECCA LESTER,MED STUDENT Aug 06, 2020 11:21 PRANAY SOLOMON DO Aug 06, 2020 12:37
[2020-08-06] MEDS: ENOXAPARIN 40 MG/0.4 ML (LOVENOX) SYR SC SCH (16:27)
--- NOTE | 2020-08-06 16:44 | NUR ---
D/C wet to dry dressing order BID with Wayne per Dr. Solomon request. Patient is to begin a "moisturizing dressing" this PM. Requested assistance from the Wound Care nurse at this time to decide on the proper dressing needed for this patient. Addendum: 08/06/20 at 1734 by RUDDY PAEZ RN Amended: Links added.
--- NOTE | 2020-08-06 18:47 | NUR ---
Consulted with wound care at this time. Renita suggested to continue Dakins wet to dry on the right and Xeroform with krelex on the left. Wound care consulted at this time with Dr. Solomon approval. Will pass info on in report.
[2020-08-07] MEDS: CEFEPIME 2,000 MG/SWFI 20 ML IV PUSH IV SCH ×4 (03:05→11:43)
[2020-08-07 03:58] VITALS: BP 159/82
[2020-08-07] MEDS: inSUlin ASPART (NovoLOG) 1 UNIT/0.01 ML (CHARGE PER UNIT) SC SCH ×4 (06:44→21:26)
[2020-08-07 06:56] LABS: BASOPHILS # (AUTO) 0.1 10^3/uL (0.0-0.1); BASOPHILS % (AUTO) 1 % (0-10); EOSINOPHILS # (AUTO) 0.5 10^3/uL (0.0-0.3); EOSINOPHILS % (AUTO) 6 % (0-10); HEMATOCRIT 40 % (40-54); LYMPHOCYTES % (AUTO) 12 % (12-44); MEAN CORPUSCULAR HEMOGLOBIN 29 pg (25-34); MEAN CORPUSCULAR HGB CONC 33 g/dL (32-36); MEAN CORPUSCULAR VOLUME 90 fL (80-99); MEAN PLATELET VOLUME 9.4 fL (9.0-12.2); MONOCYTES # (AUTO) 0.9 10^3/uL (0.0-1.0); MONOCYTES % (AUTO) 11 % (0-12); NEUTROPHILS # (AUTO) 5.6 10^3/uL (1.8-7.8); NEUTROPHILS % (AUTO) 68 % (42-75); PLATELET COUNT 335 10^3/uL (130-400); WHITE BLOOD COUNT 8.2 10^3/uL (4.3-11.0)
[2020-08-07 07:13] LABS: ALBUMIN 3.1 GM/DL (3.2-4.5)
[2020-08-07 07:14] LABS: CHLORIDE 104 MMOL/L (98-107); POTASSIUM 4.1 MMOL/L (3.6-5.0); SODIUM 138 MMOL/L (135-145)
[2020-08-07 07:15] LABS: CALCIUM 8.5 MG/DL (8.5-10.1)
[2020-08-07 07:16] LABS: GLUCOSE 180 MG/DL (70-105); TOTAL PROTEIN 6.9 GM/DL (6.4-8.2)
[2020-08-07 07:17] LABS: CARBON DIOXIDE 25 MMOL/L (21-32)
[2020-08-07 07:18] LABS: BILIRUBIN,TOTAL 0.9 MG/DL (0.1-1.0)
[2020-08-07 07:20] LABS: ALKALINE PHOSPHATASE 111 U/L (40-136); CREATININE SERUM 1.13 MG/DL (0.60-1.30); GFR ESTIMATED > 60
[2020-08-07 07:21] LABS: BUN/CREATININE RATIO 18
[2020-08-07 07:23] LABS: ALANINE AMINOTRANSFERASE 137 U/L (0-55)
[2020-08-07 08:00] VITALS: BP 152/96
--- NOTE | 2020-08-07 08:00 | Progress Note - Hospitalist ---
Subjective HPI/CC On Admission Date Seen by Provider: Aug 07, 2020 Time Seen by Provider: 11:30 CC: Right DM foot ulcer with sepsis from cellulitis HPI: This is a 64yoWM clinic patient of Dr Avina who has a h/o DM who presents to the [facility] ER with right foot drainage. Patient was found to have poor hygiene and evidence of right DM foot ulcer with cellulitis. Patient was tachycardic and feverish. Abx broad spectrum given and Dr Jimenes has been consulted for debridement. Lovenox was given for DVT PPx. Dr Hernandez will assess him for vascular insuff and cardiac clearance. 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 Subjective/Events-last exam No changes Increasing insulin or OHA HGA1C will be addressed as outpatient Review of Systems General: Fatigue, Malaise Musculoskeletal: foot pain Objective Exam Vital Signs Vital Signs Date Time Temp Pulse Resp B/P (MAP) Pulse Ox O2 Delivery O2 Flow Rate FiO2 08/07/20 15:51 36.5 87 18 132/73 (92) 95 Room Air Capillary Refill : Less Than 3 SecondsLess Than 3 Seconds General Appearance: No Apparent Distress, WD/WN, Chronically ill Respiratory: Chest Non Tender, Lungs Clear, Normal Breath Sounds, No Accessory Muscle Use, No Respiratory Distress Cardiovascular: Regular Rate, Rhythm, No Edema, No Gallop, No JVD, No Murmur, Normal Peripheral Pulses Neurologic/Psychiatric: Alert, Oriented x3, No Motor/Sensory Deficits, Normal Mood/Affect Results/Procedures Lab Laboratory Tests 08/07/20 06:37 Patient resulted labs reviewed. Assessment/Plan Assessment and Plan Assess & Plan/Chief Complaint Assessment: Sepsis DM foot ulcer with cellulitis and abscess s/p debridement DM OOC HTN Plan: IV abx Wound care 08/07/20: IV abx Monitor wound care Diagnosis/Problems Diagnosis/Problems (1) Sepsis (2) Diabetes (3) MAGALI (acute kidney injury) (4) Hypertension (5) Gout (6) Cellulitis of right foot Status: Acute (7) Diabetic foot ulcers Status: Acute Qualifiers: Diabetic foot ulcer location: midfoot Diabetes mellitus type: type 2 Laterality: right Non-pressure ulcer stage: unspecified non-pressure ulcer stage Qualified Codes: E11.621 - Type 2 diabetes mellitus with foot ulcer; L97.419 - Non-pressure chronic ulcer of right heel and midfoot with unspecified severity JULIA REYNOSO DO Aug 07, 2020 08:00
[2020-08-07] MEDS: SENNA W/DOCUSATE (SENOKOT S) TABLET PO SCH ×2 (08:53→21:27)
--- NOTE | 2020-08-07 10:54 | Progress Note - Surgery ---
VANITA PAEZ MED STUDENT 08/07/20 1054: Subjective Date Seen by a Provider: Aug 07, 2020 Time Seen by a Provider: 09:30 Subjective/Events-last exam Audi is a 64 yo M wiht diabetic foot ulcers and cellulitis. Pt that was sitting in his chair when I entered the room this morning. He stated that he was not in any pain and that he believed his legs were looking better today. He is able to walk around the room and to the bathroom without issue. He seemed concerned that the bandages around his feet ar being replaced 4 times a day. Focused Exam Time of Focused Exam: 09:30 Respiratory: Chest Non Tender, Lungs Clear, Normal Breath Sounds, No Accessory Muscle Use, No Respiratory Distress Cardiovascular: Regular Rate, Rhythm, No Gallop, No Murmur, Normal Peripheral Pulses Skin: normal color, warm/dry, other (chronic venous stasis changes to LLE, cellulitis of RLE) Objective Exam Vital Signs Date Time Temp Pulse Resp B/P (MAP) Pulse Ox O2 Delivery O2 Flow Rate FiO2 08/07/20 08:00 35.8 88 20 152/96 (114) 95 Room Air 08/07/20 08:00 Room Air 08/07/20 03:58 36.0 80 20 159/82 (107) 94 Room Air 08/06/20 23:44 36.4 88 22 129/80 (96) 94 Room Air 08/06/20 20:55 Room Air 08/06/20 19:48 36.8 89 18 141/72 (95) 96 Room Air 08/06/20 16:00 36.9 91 18 152/87 (108) 93 Room Air 08/06/20 12:43 36.1 88 20 139/73 (95) 97 Room Air I & O 08/07/20 07:00 Intake Total 2330 ml Output Total 2675 ml Balance -345 ml Capillary Refill : Less Than 3 SecondsLess Than 3 Seconds General Appearance: No Apparent Distress, WD/WN, Chronically ill HEENT: PERRL/EOMI, Moist Mucous Membranes Neck: Normal Inspection, Non Tender, Supple Respiratory: Chest Non Tender, Lungs Clear, Normal Breath Sounds, No Accessory Muscle Use, No Respiratory Distress Cardiovascular: Regular Rate, Rhythm, No Edema, No Gallop, No JVD, No Murmur, Normal Peripheral Pulses Peripheral Pulses: 2+ Dorsalis Pedis (R), 2+ Left Dors-Pedis (L), 2+ Radial Pulses (R), 2+ Radial Pulses (L) Gastrointestinal: normal bowel sounds, non tender, soft Extremity: Normal Capillary Refill, Normal Inspection, Inflammation (RLE), Other (chronic venous stasis changes to LLE) Neurologic/Psychiatric: Alert, Oriented x3, No Motor/Sensory Deficits, Normal Mood/Affect Skin: Warm/Dry, Erythema ( RLE), Other (debrided wound to R plantar foot, no necrotic tissue or surrounding erythema. Fissure to L plantar foot, dry, no erythema surrounding) Lymphatic: No Adenopathy (axila, cervical, or inguinal) Results Lab Laboratory Tests 08/06/20 11:06: Glucometer 245H 08/06/20 15:30: Glucometer 268H 08/06/20 20:07: Glucometer 226H 08/07/20 06:03: Glucometer 207H 08/07/20 06:37: White Blood Count 8.2, Red Blood Count 4.43, Hemoglobin 13.0L, Hematocrit 40, Mean Corpuscular Volume 90, Mean Corpuscular Hemoglobin 29, Mean Corpuscular Hemoglobin Concent 33, Red Cell Distribution Width 12.0, Platelet Count 335, Mean Platelet Volume 9.4, Immature Granulocyte % (Auto) 3, Neutrophils (%) (Auto) 68, Lymphocytes (%) (Auto) 12, Monocytes (%) (Auto) 11, Eosinophils (%) (Auto) 6, Basophils (%) (Auto) 1, Neutrophils # (Auto) 5.6, Lymphocytes # (Auto) 1.0, Monocytes # (Auto) 0.9, Eosinophils # (Auto) 0.5H, Basophils # (Auto) 0.1, Immature Granulocyte # (Auto) 0.2H, Sodium Level 138, Potassium Level 4.1, Chloride Level 104, Carbon Dioxide Level 25, Anion Gap 9, Blood Urea Nitrogen 20H, Creatinine 1.13, Estimat Glomerular Filtration Rate > 60, BUN/Creatinine Ratio 18, Glucose Level 180H, Calcium Level 8.5, Corrected Calcium 9.2, Total Bilirubin 0.9, Aspartate Amino Transf (AST/SGOT) 65H, Alanine Aminotransferase (ALT/SGPT) 137H, Alkaline Phosphatase 111, Total Protein 6.9, Albumin 3.1L Microbiology 08/03/20 Gram Stain - Final, Resulted 08/03/20 Anaerobic Culture - Preliminary, Resulted Culture In Progress 08/03/20 Surgical Culture - Final, Resulted Gram Pos Mixed Bacterial Johana 08/02/20 Blood Culture - Preliminary, Resulted No growth Assessment/Plan Assessment/Plan Assessment/Plan R plantar foot ulcer: s/p surgical debridement, continue local wound care. ABIs within normal limits L plantar foot callus and fissure: add bacitracin or moisturizer, local wound care - stop Dakins (which is only for debridement). RLE Cellulitis Leukocytosis- improving, 8.2 this AM, continue cefepime and vancomycin COVID negative Non-insulin dependent DM- glucose level was elevated this mornig to 180 advance diet as tolerated, Encourage ambulation and IS ALONDRA RAMESH DO 08/07/20 1657: Subjective Time Seen by a Provider: 15:20 Subjective/Events-last exam Pt seen and examined, no new complaints or changes. Review of Systems General: No Chills; Fatigue Pulmonary: No Dyspnea, No Cough Cardiovascular: No: Chest Pain Gastrointestinal: No: Nausea, Vomiting, Abdominal Pain Objective Exam General Appearance: No Apparent Distress, Chronically ill HEENT: Moist Mucous Membranes Respiratory: Lungs Clear, Normal Breath Sounds, No Accessory Muscle Use, No Respiratory Distress Cardiovascular: Regular Rate, Rhythm, No Murmur Gastrointestinal: non tender, soft Extremity: Inflammation (RLE), Other (chronic venous stasis changes to LLE) Assessment/Plan Assessment/Plan Assessment/Plan R plantar foot ulcer: s/p surgical debridement, continue local wound care. ABIs within normal limits L plantar foot callus and fissure: add bacitracin or moisturizer, local wound care - stop Dakins (which is only for debridement). RLE Cellulitis Leukocytosis- improving, 8.2 this AM, continue cefepime and vancomycin COVID negative Non-insulin dependent DM- glucose level was elevated this mornig to 180 advance diet as tolerated, Encourage ambulation and IS Supervisory-Addendum Brief Verification & Attestation Participated in pt care: history, MDM, physical Personally performed: exam, history, MDM Care discussed with: Medical Student Procedures: n/a Verification and Attestation of Medical Student E/M Service A medical student performed and documented this service. I then reviewed and verified all information documented by the medical student and made modifications to such information, when appropriate. I personally performed a physical exam, medical decision making and then discussed any differences between the notes and made revisions as necessary to create one note. Alondra Ramesh , 08/07/20 , 16:57 VANITA PAEZ MED STUDENT Aug 07, 2020 10:54 ALONDRA RAMESH DO Aug 07, 2020 16:57
[2020-08-07] MEDS: DAKIN'S 1/4 STRENGTH (0.125%) 473 ML BTL TOP SCH ×2 (11:00→21:26)
[2020-08-07 12:33] VITALS: BP 142/84
[2020-08-07 15:51] VITALS: BP 132/73
[2020-08-07] MEDS: ENOXAPARIN 40 MG/0.4 ML (LOVENOX) SYR SC SCH (17:03)
[2020-08-07 20:00] VITALS: BP 163/77
[2020-08-08 00:45] VITALS: BP 143/88
[2020-08-08 04:00] VITALS: BP 120/56
[2020-08-08 05:14] LABS: BASOPHILS # (AUTO) 0.1 10^3/uL (0.0-0.1); BASOPHILS % (AUTO) 1 % (0-10); EOSINOPHILS # (AUTO) 0.5 10^3/uL (0.0-0.3); EOSINOPHILS % (AUTO) 5 % (0-10); HEMATOCRIT 41 % (40-54); HEMOGLOBIN 13.1 g/dL (13.3-17.7); LYMPHOCYTES # (AUTO) 1.2 10^3/uL (1.0-4.0); LYMPHOCYTES % (AUTO) 14 % (12-44); MEAN CORPUSCULAR HEMOGLOBIN 29 pg (25-34); MEAN CORPUSCULAR HGB CONC 32 g/dL (32-36); MEAN CORPUSCULAR VOLUME 91 fL (80-99); MEAN PLATELET VOLUME 9.6 fL (9.0-12.2); MONOCYTES # (AUTO) 0.9 10^3/uL (0.0-1.0); MONOCYTES % (AUTO) 10 % (0-12); NEUTROPHILS # (AUTO) 5.8 10^3/uL (1.8-7.8); NEUTROPHILS % (AUTO) 66 % (42-75); PLATELET COUNT 348 10^3/uL (130-400); WHITE BLOOD COUNT 8.8 10^3/uL (4.3-11.0)
[2020-08-08 05:28] LABS: ALBUMIN 3.2 GM/DL (3.2-4.5); CHLORIDE 104 MMOL/L (98-107); POTASSIUM 4.1 MMOL/L (3.6-5.0); SODIUM 140 MMOL/L (135-145)
[2020-08-08 05:29] LABS: CALCIUM 8.5 MG/DL (8.5-10.1)
[2020-08-08 05:30] LABS: GLUCOSE 182 MG/DL (70-105); TOTAL PROTEIN 6.9 GM/DL (6.4-8.2)
[2020-08-08] MEDS: inSUlin ASPART (NovoLOG) 1 UNIT/0.01 ML (CHARGE PER UNIT) SC SCH ×4 (05:30→21:07)
[2020-08-08 05:31] LABS: CARBON DIOXIDE 27 MMOL/L (21-32)
[2020-08-08 05:32] LABS: BILIRUBIN,TOTAL 0.7 MG/DL (0.1-1.0)
[2020-08-08 05:34] LABS: ALKALINE PHOSPHATASE 117 U/L (40-136); CREATININE SERUM 1.12 MG/DL (0.60-1.30); GFR ESTIMATED > 60
[2020-08-08 05:35] LABS: BUN/CREATININE RATIO 17
[2020-08-08 05:37] LABS: ALANINE AMINOTRANSFERASE 125 U/L (0-55)
--- NOTE | 2020-08-08 06:58 | Progress Note - Surgery ---
FUNMILAYO BUTLER MED STUDENT 08/08/20 0657: Subjective Date Seen by a Provider: Aug 08, 2020 Time Seen by a Provider: 06:52 Subjective/Events-last exam Pt asleep upon entering but easily woken. Pt denies pain, SOB, N/V. Pt notes BM and flatus. No acute events overnight. Pt states no other concerns. Review of Systems General: No Chills HEENT: No Head Aches Pulmonary: Cough Cardiovascular: No: Chest Pain Gastrointestinal: No: Nausea, Vomiting, Abdominal Pain Neurological: No: Weakness Focused Exam Time of Focused Exam: 09:30 Objective Exam Vital Signs Date Time Temp Pulse Resp B/P (MAP) Pulse Ox O2 Delivery O2 Flow Rate FiO2 08/08/20 04:00 36.6 94 18 120/56 (77) 97 Room Air 08/08/20 00:45 37.1 96 18 143/88 (106) 97 Room Air 08/07/20 20:00 Room Air 08/07/20 20:00 37.5 89 18 163/77 (105) 93 Room Air 08/07/20 15:51 36.5 87 18 132/73 (92) 95 Room Air 08/07/20 12:33 36.5 83 20 142/84 (103) 98 Room Air 08/07/20 08:00 35.8 88 20 152/96 (114) 95 Room Air 08/07/20 08:00 Room Air I & O 08/08/20 07:00 Intake Total 2080 ml Output Total 1750 ml Balance 330 ml Capillary Refill : Less Than 3 SecondsLess Than 3 Seconds General Appearance: No Apparent Distress, WD/WN, Chronically ill Neck: Normal Inspection, Non Tender, Supple Respiratory: Chest Non Tender, Lungs Clear, Normal Breath Sounds, No Accessory Muscle Use, No Respiratory Distress Cardiovascular: Regular Rate, Rhythm, No Edema, No Gallop, No JVD, No Murmur, Normal Peripheral Pulses Peripheral Pulses: 2+ Dorsalis Pedis (R), 2+ Left Dors-Pedis (L), 2+ Radial Pul ses (R), 2+ Radial Pulses (L) Gastrointestinal: non tender, soft Extremity: Inflammation (RLE), Other (chronic venous stasis changes to LLE) Neurologic/Psychiatric: Alert, Oriented x3, No Motor/Sensory Deficits, Normal Mood/Affect Skin: Warm/Dry, Erythema ( RLE), Other (debrided wound to R plantar foot, no necrotic tissue or surrounding erythema. Fissure to L plantar foot, dry, no erythema surrounding) Lymphatic: No Adenopathy (axila, cervical, or inguinal) Results Lab Laboratory Tests 08/07/20 11:32: Glucometer 252H 08/07/20 15:26: Glucometer 250H 08/07/20 20:05: Glucometer 245H 08/08/20 04:20: White Blood Count 8.8, Red Blood Count 4.49, Hemoglobin 13.1L, Hematocrit 41, Mean Corpuscular Volume 91, Mean Corpuscular Hemoglobin 29, Mean Corpuscular Hemoglobin Concent 32, Red Cell Distribution Width 12.0, Platelet Count 348, Mean Platelet Volume 9.6, Immature Granulocyte % (Auto) 4, Neutrophils (%) (Auto) 66, Lymphocytes (%) (Auto) 14, Monocytes (%) (Auto) 10, Eosinophils (%) (Auto) 5, Basophils (%) (Auto) 1, Neutrophils # (Auto) 5.8, Lymphocytes # (Auto) 1.2, Monocytes # (Auto) 0.9, Eosinophils # (Auto) 0.5H, Basophils # (Auto) 0.1, Immature Granulocyte # (Auto) 0.4H, Sodium Level 140, Potassium Level 4.1, Chloride Level 104, Carbon Dioxide Level 27, Anion Gap 9, Blood Urea Nitrogen 19H, Creatinine 1.12, Estimat Glomerular Filtration Rate > 60, BUN/Creatinine Ratio 17, Glucose Level 182H, Calcium Level 8.5, Corrected Calcium 9.1, Total Bilirubin 0.7, Aspartate Amino Transf (AST/SGOT) 61H, Alanine Aminotransferase (ALT/SGPT) 125H, Alkaline Phosphatase 117, Total Protein 6.9, Albumin 3.2 08/08/20 05:22: Glucometer 176H Microbiology 08/03/20 Gram Stain - Final, Resulted 08/03/20 Anaerobic Culture - Preliminary, Resulted Culture In Progress 08/03/20 Surgical Culture - Final, Resulted Gram Pos Mixed Bacterial Johana 08/02/20 Blood Culture - Final, Complete No growth Assessment/Plan Assessment/Plan Assessment/Plan R plantar foot ulcer: s/p surgical debridement, continue local wound care. ABIs within normal limits L plantar foot callus and fissure: add bacitracin or moisturizer, local wound care - stop Dakins (which is only for debridement). RLE Cellulitis Leukocytosis- improving, 8.8 this AM, continue cefepime and vancomycin COVID negative Non-insulin dependent DM- glucose level was elevated this morning to 176 advance diet as tolerated, Encourage ambulation and IS VIRGINIAMICHAELLE Alejandro DO 08/08/20 0947: Subjective Subjective/Events-last exam Patient foot no pain. Wanting to go home. Redness slightly increased. Still with cough. Denies n/v fever sweats chills shortness of breath or chest pain. Objective Exam General Appearance: No Apparent Distress, WD/WN, Chronically ill HEENT: PERRL/EOMI, Normal ENT Inspection Neck: Normal Inspection, Non Tender, Supple Respiratory: Chest Non Tender, No Accessory Muscle Use, No Respiratory Distress Cardiovascular: Regular Rate, Rhythm, No JVD Gastrointestinal: non tender, soft Extremity: Inflammation (RLE), Swelling (right foot), Other (chronic venous stasis changes to LLE) Neurologic/Psychiatric: Alert, Oriented x3, No Motor/Sensory Deficits Skin: Warm/Dry, Erythema ( RLE), Other (debrided wound to R plantar foot, no necrotic tissue or surrounding erythema. Fissure to L plantar foot, dry, no erythema surrounding) Lymphatic: No Adenopathy (axila, cervical, or inguinal) Assessment/Plan Assessment/Plan Assessment/Plan R plantar foot ulcer: s/p surgical debridement, continue local wound care. ABIs within normal limits L plantar foot callus and fissure: add bacitracin or moisturizer, local wound care - stop Dakins (which is only for debridement). RLE Cellulitis Leukocytosis- improving, 8.8 this AM, awaiting culture COVID negative Non-insulin dependent DM- glucose level was elevated this morning to 176 advance diet as tolerated, Encourage ambulation and IS Supervisory-Addendum Brief Verification & Attestation Participated in pt care: history, MDM, physical Personally performed: exam, history, MDM, supervision of care Care discussed with: Medical Student Procedures: n/a Results interpretation: Verified all documentation Verification and Attestation of Medical Student E/M Service A medical student performed and documented this service in my presence. I reviewed and verified all information documented by the medical student and made modifications to such information, when appropriate. I personally performed the physical exam and medical decision making. Michaelle Jimenes, Aug 08, 2020,09:46 FUNMILAYO BUTLER MED STUDENT Aug 08, 2020 06:57 MICHAELLE JIMENES DO Aug 08, 2020 09:47
[2020-08-08 08:28] VITALS: BP 143/80
[2020-08-08] MEDS: SENNA W/DOCUSATE (SENOKOT S) TABLET PO SCH ×2 (10:39→21:07)
[2020-08-08] MEDS: DAKIN'S 1/4 STRENGTH (0.125%) 473 ML BTL TOP SCH ×2 (10:56→19:31)
[2020-08-08] MEDS: metroNIDAZOLE 500 MG/100 ML IVPB (PRE-MIX) IV SCH ×3 (10:56→21:07)
[2020-08-08] MEDS: CEFEPIME 2,000 MG/SWFI 20 ML IV PUSH IV SCH ×4 (10:56→18:52)
--- NOTE | 2020-08-08 11:25 | Progress Note - Hospitalist ---
INDIRA COPELAND MED STUDENT 08/08/20 1125: Subjective HPI/CC On Admission Date Seen by Provider: Aug 08, 2020 Time Seen by Provider: 08:40 CC: Right DM foot ulcer with sepsis from cellulitis HPI: This is a 64yoWM clinic patient of Dr Avina who has a h/o DM who presents to the [facility] ER with right foot drainage. Patient was found to have poor hygiene and evidence of right DM foot ulcer with cellulitis. Patient was tachycardic and feverish. Abx broad spectrum given and Dr Jimenes has been consulted for debridement. Lovenox was given for DVT PPx. Dr Hernandez will assess him for vascular insuff and cardiac clearance. 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 Subjective/Events-last exam This is a 64 year old male with a hx of diabetes that presented for R foot drainage, fever, and tachycardia. He received debreidment of his R foot on the and is being followed by surgery. He has also had cardiology evaluation for vascular insufficiency in his legs. This morning he states that he has no pain in his feet. He does have some numbness in the L leg, and slight pain to palpation on the dorsal portion of his R foot. He states that he takes metformin 500 at home and no other diabetes medication. States he lives at home with his mother. His glucose has been consistently high for his stay, his A1C and diabetes will continue to be managed outpatient. He has no other complaints today and denies chest pain or trouble breathing, he is able to ambulate by himself. Focused Exam Time of Focused Exam: 09:30 Objective Exam Vital Signs Vital Signs Date Time Temp Pulse Resp B/P (MAP) Pulse Ox O2 Delivery O2 Flow Rate FiO2 08/08/20 08:28 36.4 80 18 143/80 (101) 94 Room Air Capillary Refill : Less Than 3 SecondsLess Than 3 Seconds General Appearance: No Apparent Distress, WD/WN Neck: Full Range of Motion, Normal Inspection, Non Tender, Supple, Carotid Bruit Respiratory: Chest Non Tender, Lungs Clear, Normal Breath Sounds, No Accessory Muscle Use, No Respiratory Distress Cardiovascular: Regular Rate, Rhythm, No Edema, No Gallop, No JVD, No Murmur, Normal Peripheral Pulses Gastrointestinal: Normal Bowel Sounds, No Organomegaly, No Pulsatile Mass, Non Tender, Soft Rectal: Deferred Extremity: Normal Range of Motion, No Calf Tenderness, Other (Inflammation and erythema of R leg. Some numbness and pain to palpation on Dorsal R foot. Callous on plantar L foot. ) Neurologic/Psychiatric: Alert, Oriented x3 Skin: Normal Color, Warm/Dry Results/Procedures Lab Laboratory Tests 08/08/20 04:20 Patient resulted labs reviewed. Assessment/Plan Assessment and Plan Assess & Plan/Chief Complaint Continue to monitor patients for to ensure healing Add another medication to manage pts Diabetes Set patient up with home health or schedule for him to come into [facility] for wound care Continue morning labs Schedule followup appointment for diabetes management Diagnosis/Problems Diagnosis/Problems (1) Diabetic foot ulcers Status: Acute Qualifiers: Qualified Codes: E11.621 - Type 2 diabetes mellitus with foot ulcer; L97.419 - Non-pressure chronic ulcer of right heel and midfoot with unspecified severity (2) Cellulitis of right foot Status: Acute (3) Gout (4) Diabetes (5) Sepsis Supervisory-Addendum Brief Verification & Attestation Participated in pt care: history Personally performed: exam, history Care discussed with: other Procedures: n/a n/a DARIUSZ DUNCAN MD 08/08/20 1652: Subjective Subjective/Events-last exam Agree with above in addition, Patient states that he has not been on medications for his DM other then Metformin and has not been checking blood sugars or had medications adjusted recently. States that he has had similar wounds in the past and was on antibiotics. Denies any previous amputations. Patient is poor to f.u. Denies any pain at this time. Review of Systems Pulmonary: No Dyspnea, No Cough Cardiovascular: No: Chest Pain, Palpitations Gastrointestinal: No: Nausea, Vomiting, Abdominal Pain Musculoskeletal: No: foot pain Neurological: Numbness; No: Weakness, Incoordination Objective Exam General Appearance: No Apparent Distress, WD/WN Respiratory: Chest Non Tender, Lungs Clear, Normal Breath Sounds, No Accessory Muscle Use, No Respiratory Distress Cardiovascular: Regular Rate, Rhythm, No Murmur, Other (1+ edema to RLE to mid calf) Gastrointestinal: Normal Bowel Sounds, Non Tender, Soft Extremity: Normal Range of Motion, No Calf Tenderness, Other (Inflammation and erythema of R leg. Some numbness and pain to palpation on Dorsal R foot. Callous on plantar L foot. ) Neurologic/Psychiatric: Alert, Oriented x3, life cycle assessment analyst II-XII Norm as Tested Skin: Other (erythema to mid calf on RLE) Lymphatic: No Adenopathy Supervisory-Addendum Brief Verification & Attestation Participated in pt care: history Personally performed: exam, history Care discussed with: Medical Student Procedures: n/a Verification and Attestation of Medical Student E/M Service A medical student performed and documented this service in my presence. I reviewed and verified all information documented by the medical student and made modifications to such information, when appropriate. I personally performed the physical exam and medical decision making. Dariusz Duncan, Aug 08, 2020,16:43 64 yo M with uncontrolled DM that presented with RLE Cellulits and foot wound 08/08/2020 Right LE DM Wound: Continue IV antibiotics, Wound care per wound team RL Cellulits: Improving NIDDM with Neuropathy: Discussed the importance of checking feet daily and gett ing better control of DM, Discussed starting Invokana NIDDM with arterial dz Uncontrolled DM: A1c pending HLD MAGALI: Resolved Left LE Fissure DVT Px: Lovenox Dispo: Checking on , patient does not have insurance and unable to get to [place] several times per week for wound care INDIRA COPELAND MED STUDENT Aug 08, 2020 11:25 DARIUSZ DUNCAN MD Aug 08, 2020 16:52
[2020-08-08 11:48] VITALS: BP 147/78
--- NOTE | 2020-08-08 12:17 | Progress Note - Cardiology ---
Cardiology SOAP Progress Note Subjective: Lying in bed Denies sob, CP or palpitations Denies any pain of the extremities Objective: I&O/Vital Signs 08/09/20 08/09/20 08/09/20 00:37 04:47 08:00 Temp 36.3 35.9 36.7 Pulse 81 82 84 Resp 18 20 20 B/P (MAP) 129/60 (83) 135/72 (93) 144/91 (108) Pulse Ox 92 92 94 O2 Delivery Room Air Room Air Room Air 08/09/20 00:00 Intake Total 2180 ml Output Total 3200 ml Balance -1020 ml Constitutional: AAO x 3, well-developed, well-nourished Respiratory: chest is bilaterally symmetric, lungs clear to auscultation Cardiovascular: regular rate-rhythm, S1 and S2 Gastrointestional: soft, audible bowel sounds Extremities: other (see skin assessment), wound (dressing in place - not removed) Neurologic/Psychiatric: grossly intact (moves all extremities) Skin: other (chronic venous stasis changes to LLE, cellulitis of RLE) Results/Procedures: Labs Laboratory Tests 08/08/20 15:44: Glucometer 242H 08/08/20 20:04: Glucometer 222H 08/09/20 05:34: Glucometer 178H 08/09/20 05:45: White Blood Count 7.5, Red Blood Count 4.66, Hemoglobin 13.7, Hematocrit 42, Mean Corpuscular Volume 91, Mean Corpuscular Hemoglobin 29, Mean Corpuscular Hemoglobin Concent 33, Red Cell Distribution Width 12.1, Platelet Count 347, Mean Platelet Volume 9.2, Immature Granulocyte % (Auto) 5, Neutrophils (%) (Auto) 67, Lymphocytes (%) (Auto) 13, Monocytes (%) (Auto) 10, Eosinophils (%) (Auto) 5, Basophils (%) (Auto) 1, Neutrophils # (Auto) 5.0, Lymphocytes # (Auto) 1.0, Monocytes # (Auto) 0.7, Eosinophils # (Auto) 0.4H, Basophils # (Auto) 0.1, Immature Granulocyte # (Auto) 0.3H, Sodium Level 137, Potassium Level 4.5, Chloride Level 103, Carbon Dioxide Level 24, Anion Gap 10, Blood Urea Nitrogen 19H, Creatinine 1.11, Estimat Glomerular Filtration Rate > 60, BUN/Creatinine Ratio 17, Glucose Level 189H, Calcium Level 8.6 08/09/20 11:03: Glucometer 217H Microbiology 08/03/20 Gram Stain - Final, Resulted 08/03/20 Anaerobic Culture - Preliminary, Resulted Culture In Progress 08/03/20 Surgical Culture - Final, Resulted Gram Pos Mixed Bacterial Johana 08/02/20 Blood Culture - Final, Complete No growth A/P: Assessment: Right foot nonhealing wound with cellulitis. status post debridement, JOAN was normal. Arterial ultrasound shows possible below the knee disease - followed by Dr. Hernandez Dyspnea on exertion, , COVID 19 testing was negative Acute renal insufficiency - improved HTN HLP DM- management per PCP Liver enzyme elevation - follwed by medical services Plan: Management of cellulitis per medical services Liver enzyme elevation of undetermined etiology - statin currently being held - management per medical services [place] lab Replace electrolytes as indicated REBECCA SPARKS Aug 08, 2020 12:17
--- NOTE | 2020-08-08 13:05 | NUR ---
CM/SS visited with patient for discharge planning. Plan: undetermined at this time. Patient will need wound care. Home: The patient lives at home with his elderly mother. He reports that he is independent at home and does not need any assistive devices. According to the patient, his mother is also in good health. Equipment: He states they have a lot of equipment at the house such as a walker from when his dad was at home. Home Health: The patient does not have home health currently and doesn't believe he's had it in the past. However, he did mention having IV antibiotics in the past when discharged from [facility] and wound care. CM/SS contacted Jennifer from [facility] to see if they service [place], [place]. The patient will be self pay. Awaiting answer. It could potentially be a barrier if they do not service the area. The patient reports that depending on the dressing his mother would be willing to assist. Occupation: The patient is self employed. He reports that he works with [employer]. CM/SS will continue to follow.
[2020-08-08] MEDS: ENOXAPARIN 40 MG/0.4 ML (LOVENOX) SYR SC SCH (15:29)
[2020-08-08 16:00] VITALS: BP 146/74
--- NOTE | 2020-08-08 16:59 | Wound Care Assessment ---
Wound Care Assessment Date Seen by Provider: Aug 08, 2020 Time Seen by Provider: 16:30 Chief Complaint R foot ulcer. HPI The patient is a 64 year old male with infected R plantar ulcer, s/p debridement per surgical service, resolving cellulitis of R foot, and poorly controlled diabetes. the wounds are currently managed by surgical service, and will defer to their orders. Available fo rout-patient follow-up as needed. Smoking Status: Never a Smoker Recreational Drug Use: No Alcohol Use: Denies Use Review of Systems Pulmonary: No Dyspnea Cardiovascular: No: Chest Pain Exam Vital Signs Date Time Temp Pulse Resp B/P (MAP) Pulse Ox O2 Delivery O2 Flow Rate FiO2 08/08/20 16:00 36.8 82 18 146/74 (98) 92 Room Air Capillary Refill : Less Than 3 SecondsLess Than 3 Seconds Extremities: other (R plantar foot -- 1.7 x 17. x 1.2 cm, base granulating nicely with exposed necrotic tendon and probes to bone.) Results Laboratory Tests 08/07/20 20:05: Glucometer 245H 08/08/20 04:20: White Blood Count 8.8, Red Blood Count 4.49, Hemoglobin 13.1L, Hematocrit 41, Mean Corpuscular Volume 91, Mean Corpuscular Hemoglobin 29, Mean Corpuscular Hemoglobin Concent 32, Red Cell Distribution Width 12.0, Platelet Count 348, Mean Platelet Volume 9.6, Immature Granulocyte % (Auto) 4, Neutrophils (%) (Auto) 66, Lymphocytes (%) (Auto) 14, Monocytes (%) (Auto) 10, Eosinophils (%) (Auto) 5, Basophils (%) (Auto) 1, Neutrophils # (Auto) 5.8, Lymphocytes # (Auto) 1.2, Monocytes # (Auto) 0.9, Eosinophils # (Auto) 0.5H, Basophils # (Auto) 0.1, Immature Granulocyte # (Auto) 0.4H, Sodium Level 140, Potassium Level 4.1, Chloride Level 104, Carbon Dioxide Level 27, Anion Gap 9, Blood Urea Nitrogen 19H, Creatinine 1.12, Estimat Glomerular Filtration Rate > 60, BUN/Creatinine Ratio 17, Glucose Level 182H, Calcium Level 8.5, Corrected Calcium 9.1, Total Bilirubin 0.7, Aspartate Amino Transf (AST/SGOT) 61H, Alanine Aminotransferase (ALT/SGPT) 125H, Alkaline Phosphatase 117, Total Protein 6.9, Albumin 3.2 08/08/20 05:22: Glucometer 176H 08/08/20 10:41: Glucometer 338H 08/08/20 15:44: Glucometer 242H Microbiology 08/03/20 Gram Stain - Final, Resulted 08/03/20 Anaerobic Culture - Preliminary, Resulted Culture In Progress 08/03/20 Surgical Culture - Final, Resulted Gram Pos Mixed Bacterial Johana 08/02/20 Blood Culture - Final, Complete No growth Assessment/Plan/Dx 1. Diabetic ulcer R foot, plantar, [place] Grade 2, improved post debridement. 2. Cellulitis of R foot, improving. Plan: Dressings as per surgical service, available to follow as out-patient as needed. SLADE VILLA MD Aug 08, 2020 16:59
--- NOTE | 2020-08-08 17:38 | Progress Note - Cardiology ---
Cardiology SOAP Progress Note Subjective: No cp or palp or syncope Gen malaise No shortness of breath at rest No n/v Objective: I&O/Vital Signs 08/08/20 08/08/20 08/08/20 08/08/20 08:00 08:28 11:48 16:00 Temp 36.4 36.5 36.8 Pulse 80 83 82 Resp 18 18 18 B/P (MAP) 143/80 (101) 147/78 (101) 146/74 (98) Pulse Ox 94 91 92 O2 Delivery Room Air Room Air Room Air Room Air 08/08/20 00:00 Intake Total 1860 ml Output Total 1150 ml Balance 710 ml Constitutional: AAO x 3, well-developed, well-nourished Respiratory: chest is bilaterally symmetric, lungs clear to auscultation Cardiovascular: regular rate-rhythm, S1 and S2 Gastrointestional: soft, audible bowel sounds Extremities: other (see skin assessment), wound (dressing in place - not removed) Neurologic/Psychiatric: grossly intact (moves all extremities) Skin: other (chronic venous stasis changes to LLE, cellulitis of RLE) Results/Procedures: Labs Laboratory Tests 08/07/20 20:05: Glucometer 245H 08/08/20 04:20: White Blood Count 8.8, Red Blood Count 4.49, Hemoglobin 13.1L, Hematocrit 41, Mean Corpuscular Volume 91, Mean Corpuscular Hemoglobin 29, Mean Corpuscular Hemoglobin Concent 32, Red Cell Distribution Width 12.0, Platelet Count 348, Mean Platelet Volume 9.6, Immature Granulocyte % (Auto) 4, Neutrophils (%) (Auto) 66, Lymphocytes (%) (Auto) 14, Monocytes (%) (Auto) 10, Eosinophils (%) (Auto) 5, Basophils (%) (Auto) 1, Neutrophils # (Auto) 5.8, Lymphocytes # (Auto) 1.2, Monocytes # (Auto) 0.9, Eosinophils # (Auto) 0.5H, Basophils # (Auto) 0.1, Immature Granulocyte # (Auto) 0.4H, Sodium Level 140, Potassium Level 4.1, Chloride Level 104, Carbon Dioxide Level 27, Anion Gap 9, Blood Urea Nitrogen 19H, Creatinine 1.12, Estimat Glomerular Filtration Rate > 60, BUN/Creatinine Ratio 17, Glucose Level 182H, Calcium Level 8.5, Corrected Calcium 9.1, Total Bilirubin 0.7, Aspartate Amino Transf (AST/SGOT) 61H, Alanine Aminotransferase (ALT/SGPT) 125H, Alkaline Phosphatase 117, Total Protein 6.9, Albumin 3.2 08/08/20 05:22: Glucometer 176H 08/08/20 10:41: Glucometer 338H 08/08/20 15:44: Glucometer 242H Microbiology 08/03/20 Gram Stain - Final, Resulted 08/03/20 Anaerobic Culture - Preliminary, Resulted Culture In Progress 08/03/20 Surgical Culture - Final, Resulted Gram Pos Mixed Bacterial Johana 08/02/20 Blood Culture - Final, Complete No growth A/P: Assessment: Right foot nonhealing wound with cellulitis. status post debridement, JOAN was normal. Arterial ultrasound shows possible below the knee disease - followed by Dr. Hernandez Dyspnea on exertion, , COVID 19 testing was negative Acute renal insufficiency - improved HTN HLP DM- management per PCP Liver enzyme elevation - follwed by medical services Plan: Management of cellulitis per medical services Liver enzyme elevation of undetermined etiology - statin currently being held - management per medical services Monitor lab Replace electrolytes as indicated ALFREDO LAU MD FACP FACC CCDS Aug 08, 2020 17:38
[2020-08-08 19:36] VITALS: BP 147/77
[2020-08-09 00:37] VITALS: BP 129/60
[2020-08-09] MEDS: CEFEPIME 2,000 MG/SWFI 20 ML IV PUSH IV SCH ×6 (03:14→19:40)
[2020-08-09 04:47] VITALS: BP 135/72
[2020-08-09] MEDS: metroNIDAZOLE 500 MG/100 ML IVPB (PRE-MIX) IV SCH ×3 (05:08→21:11)
[2020-08-09] MEDS: inSUlin ASPART (NovoLOG) 1 UNIT/0.01 ML (CHARGE PER UNIT) SC SCH ×4 (05:36→20:45)
[2020-08-09 06:07] LABS: BASOPHILS # (AUTO) 0.1 10^3/uL (0.0-0.1); BASOPHILS % (AUTO) 1 % (0-10); EOSINOPHILS # (AUTO) 0.4 10^3/uL (0.0-0.3); EOSINOPHILS % (AUTO) 5 % (0-10); HEMATOCRIT 42 % (40-54); HEMOGLOBIN 13.7 g/dL (13.3-17.7); LYMPHOCYTES % (AUTO) 13 % (12-44); MEAN CORPUSCULAR HEMOGLOBIN 29 pg (25-34); MEAN CORPUSCULAR HGB CONC 33 g/dL (32-36); MEAN CORPUSCULAR VOLUME 91 fL (80-99); MEAN PLATELET VOLUME 9.2 fL (9.0-12.2); MONOCYTES # (AUTO) 0.7 10^3/uL (0.0-1.0); MONOCYTES % (AUTO) 10 % (0-12); NEUTROPHILS % (AUTO) 67 % (42-75); PLATELET COUNT 347 10^3/uL (130-400); WHITE BLOOD COUNT 7.5 10^3/uL (4.3-11.0)
[2020-08-09 06:23] LABS: CHLORIDE 103 MMOL/L (98-107); POTASSIUM 4.5 MMOL/L (3.6-5.0); SODIUM 137 MMOL/L (135-145)
[2020-08-09 06:24] LABS: CALCIUM 8.6 MG/DL (8.5-10.1); GLUCOSE 189 MG/DL (70-105)
[2020-08-09 06:26] LABS: CARBON DIOXIDE 24 MMOL/L (21-32)
[2020-08-09 06:28] LABS: CREATININE SERUM 1.11 MG/DL (0.60-1.30); GFR ESTIMATED > 60
[2020-08-09 06:29] LABS: BUN/CREATININE RATIO 17
--- NOTE | 2020-08-09 06:41 | Progress Note - Surgery ---
FUNMILAYO BUTLER MED STUDENT 08/09/20 0641: Subjective Date Seen by a Provider: Aug 09, 2020 Time Seen by a Provider: 06:34 Subjective/Events-last exam Pt asleep upon entering but easily woken. Pt has no complaints and denies SOB, N/V, and chills. Right leg erythema has improved and right wound shows purulence on bandage. Review of Systems General: No Chills HEENT: No Head Aches Pulmonary: No Dyspnea, No Cough Cardiovascular: No: Chest Pain Gastrointestinal: No: Nausea, Vomiting, Abdominal Pain Focused Exam Time of Focused Exam: 09:30 Objective Exam Vital Signs Date Time Temp Pulse Resp B/P (MAP) Pulse Ox O2 Delivery O2 Flow Rate FiO2 08/09/20 04:47 35.9 82 20 135/72 (93) 92 Room Air 08/09/20 00:37 36.3 81 18 129/60 (83) 92 Room Air 08/08/20 21:50 Room Air 08/08/20 19:36 36.7 89 18 147/77 (100) 94 Room Air 08/08/20 16:00 36.8 82 18 146/74 (98) 92 Room Air 08/08/20 11:48 36.5 83 18 147/78 (101) 91 Room Air 08/08/20 08:28 36.4 80 18 143/80 (101) 94 Room Air 08/08/20 08:00 Room Air I & O 08/09/20 07:00 Intake Total 2730 ml Output Total 3500 ml Balance -770 ml Capillary Refill : Less Than 3 SecondsLess Than 3 Seconds General Appearance: No Apparent Distress, WD/WN HEENT: PERRL/EOMI Neck: Full Range of Motion, Normal Inspection, Non Tender, Supple Respiratory: Chest Non Tender, Lungs Clear, Normal Breath Sounds, No Accessory Muscle Use, No Respiratory Distress Cardiovascular: Regular Rate, Rhythm, No Murmur, Other (1+ edema to RLE to mid calf) Peripheral Pulses: 2+ Dorsalis Pedis (R), 2+ Left Dors-Pedis (L), 2+ Radial Pulses (R), 2+ Radial Pulses (L) Gastrointestinal: non tender, soft Extremity: Normal Range of Motion, No Calf Tenderness, Other (Inflammation and erythema of R leg. Some numbness and pain to palpation on Dorsal R foot. Callous on plantar L foot. ) Neurologic/Psychiatric: Alert, Oriented x3 Skin: Other (erythema to mid calf on RLE) Lymphatic: No Adenopathy Results Lab Laboratory Tests 08/08/20 10:41: Glucometer 338H 08/08/20 15:44: Glucometer 242H 08/08/20 20:04: Glucometer 222H 08/09/20 05:34: Glucometer 178H 08/09/20 05:45: White Blood Count 7.5, Red Blood Count 4.66, Hemoglobin 13.7, Hematocrit 42, Mean Corpuscular Volume 91, Mean Corpuscular Hemoglobin 29, Mean Corpuscular Hemoglobin Concent 33, Red Cell Distribution Width 12.1, Platelet Count 347, Mean Platelet Volume 9.2, Immature Granulocyte % (Auto) 5, Neutrophils (%) (Auto) 67, Lymphocytes (%) (Auto) 13, Monocytes (%) (Auto) 10, Eosinophils (%) (Auto) 5, Basophils (%) (Auto) 1, Neutrophils # (Auto) 5.0, Lymphocytes # (Auto) 1.0, Monocytes # (Auto) 0.7, Eosinophils # (Auto) 0.4H, Basophils # (Auto) 0.1, Immature Granulocyte # (Auto) 0.3H, Sodium Level 137, Potassium Level 4.5, Chloride Level 103, Carbon Dioxide Level 24, Anion Gap 10, Blood Urea Nitrogen 19H, Creatinine 1.11, Estimat Glomerular Filtration Rate > 60, BUN/Creatinine Ratio 17, Glucose Level 189H, Calcium Level 8.6 Microbiology 08/03/20 Gram Stain - Final, Resulted 08/03/20 Anaerobic Culture - Preliminary, Resulted Culture In Progress 08/03/20 Surgical Culture - Final, Resulted Gram Pos Mixed Bacterial Johana 08/02/20 Blood Culture - Final, Complete No growth Assessment/Plan Assessment/Plan Assessment/Plan R plantar foot ulcer: s/p surgical debridement, continue local wound care. ABIs within normal limits L plantar foot callus and fissure: add bacitracin or moisturizer, local wound care - stop Dakins (which is only for debridement). RLE Cellulitis- Cefepine 20 mL and Metronidazole 100 mL Leukocytosis- improving, 8.8 this AM, awaiting culture COVID negative Non-insulin dependent DM- glucose level was elevated this morning to 178 advance diet as tolerated, Encourage ambulation and IS JIMENES,MICHAELLE D DO 08/09/20 1657: Subjective Subjective/Events-last exam Patient states he is feeling better. The right lower extremity erythema he feels a little bit better as well. Denies any new complaints. Denies any nausea vomiting fever sweats chills shortness of breath or chest pain. Objective Exam General Appearance: No Apparent Distress, WD/WN HEENT: PERRL/EOMI Neck: Full Range of Motion, Non Tender, Supple Respiratory: Chest Non Tender, No Accessory Muscle Use, No Respiratory Distress Cardiovascular: Regular Rate, Rhythm, No JVD Gastrointestinal: non tender, soft Extremity: Normal Range of Motion, No Calf Tenderness, Other (Inflammation and erythema of R leg less erythema. Some numbness and pain to palpation on Dorsal R foot. Callous on plantar L foot. ) Neurologic/Psychiatric: Alert Skin: Other (erythema to mid calf on RLE, improved from yesterday. Scant drainage on bandages wound clean) Lymphatic: No Adenopathy Assessment/Plan Assessment/Plan Assessment/Plan R plantar foot ulcer: s/p surgical debridement, continue local wound care. ABIs within normal limits culture pending L plantar foot callus and fissure: local wound care RLE Cellulitis- Cefepine 20 mL and Metronidazole 100 mL Leukocytosis- improving, 8.8 this AM, awaiting culture Continue abx continue wound care COVID negative Non-insulin dependent DM- glucose level was elevated this morning to 178 diet as tolerated, Encourage ambulation and IS Supervisory-Addendum Brief Verification & Attestation Participated in pt care: history, MDM, physical Personally performed: exam, history, MDM, supervision of care Care discussed with: Medical Student Procedures: n/a Results interpretation: Verified all documentation Verification and Attestation of Medical Student E/M Service A medical student performed and documented this service in my presence. I reviewed and verified all information documented by the medical student and made modifications to such information, when appropriate. I personally performed the physical exam and medical decision making. Michaelle Jimenes, Aug 09, 2020,16:57 FUNMILAYO BUTLER MED STUDENT Aug 09, 2020 06:41 MICHAELLE JIMENES DO Aug 09, 2020 16:57
[2020-08-09 08:00] VITALS: BP 144/91
--- NOTE | 2020-08-09 08:47 | Progress Note - Hospitalist ---
INDIRA COPELAND MED STUDENT 08/09/20 0847: Subjective HPI/CC On Admission Date Seen by Provider: Aug 09, 2020 Time Seen by Provider: 08:35 CC: Right DM foot ulcer with sepsis from cellulitis HPI: This is a 64yoWM clinic patient of Dr Avina who has a h/o DM who presents to the [facility] ER with right foot drainage. Patient was found to have poor hygiene and evidence of right DM foot ulcer with cellulitis. Patient was tachycardic and feverish. Abx broad spectrum given and Dr Jimenes has been consulted for debridement. Lovenox was given for DVT PPx. Dr Hernandez will assess him for vascular insuff and cardiac clearance. 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 Subjective/Events-last exam Patient is sitting comfortably in bed. He denies any pains in his legs or feet today. Denies NVD, SOB, chest pain. States he does not have any other concerns or questions about his health today. States that he was told he will be getting new bandages on his legs today. Redness and swelling is a bit better than previous day. Focused Exam Time of Focused Exam: 09:30 Objective Exam Vital Signs Vital Signs Date Time Temp Pulse Resp B/P (MAP) Pulse Ox O2 Delivery O2 Flow Rate FiO2 08/09/20 08:00 36.7 84 20 144/91 (108) 94 Room Air Capillary Refill : Less Than 3 SecondsLess Than 3 Seconds General Appearance: No Apparent Distress, WD/WN HEENT: PERRL/EOMI, TMs Normal, Normal ENT Inspection, Pharynx Normal, Moist Mucous Membranes Neck: Full Range of Motion, Normal Inspection, Non Tender, Supple, Carotid Bruit Respiratory: Chest Non Tender, Lungs Clear, Normal Breath Sounds, No Accessory Muscle Use, No Respiratory Distress Cardiovascular: Regular Rate, Rhythm, No Edema, No Gallop, No JVD, No Murmur, Normal Peripheral Pulses Gastrointestinal: Normal Bowel Sounds, No Organomegaly, No Pulsatile Mass, Non Tender, Soft Rectal: Deferred Extremity: No Calf Tenderness, Other (Slight tenderness to palpation of dorsal R foot. R leg swelling and erythema that is slightly improved from yesterday. Dark discoloration of L leg that it not painful. Numbness throughout both legs. ) Neurologic/Psychiatric: Alert, Oriented x3 Skin: Normal Color, Warm/Dry Results/Procedures Lab Laboratory Tests 08/09/20 05:45 Patient resulted labs reviewed. Assessment/Plan Assessment and Plan Assess & Plan/Chief Complaint Diabetic Foot Ulcer Continue to monitor patients for to ensure healing Set patient up with home health or schedule for him to come into [facility] for wound care Uncontrolled Diabetes Add another medication to manage pts Diabetes Schedule followup appointment for diabetes management Sepsis Continue morning labs Diagnosis/Problems Diagnosis/Problems (1) Diabetic foot ulcers Status: Acute Qualifiers: Qualified Codes: E11.621 - Type 2 diabetes mellitus with foot ulcer; L97.419 - Non-pressure chronic ulcer of right heel and midfoot with unspecified severity (2) Cellulitis of right foot Status: Acute (3) Gout (4) Diabetes (5) Sepsis Supervisory-Addendum Brief Verification & Attestation Participated in pt care: history, physical Personally performed: exam Care discussed with: Medical Student, other Procedures: n/a n/a DARIUSZ DUNCAN MD 08/09/202123: Subjective Subjective/Events-last exam Doing well this AM. No concerns per patient Review of Systems Pulmonary: No Dyspnea, No Cough Cardiovascular: Edema; No: Chest Pain, Palpitations Neurological: Numbness Objective Exam General Appearance: No Apparent Distress, WD/WN Respiratory: Chest Non Tender, Lungs Clear, Normal Breath Sounds, No Respiratory Distress Cardiovascular: Regular Rate, Rhythm, No Murmur, Normal Peripheral Pulses Gastrointestinal: Normal Bowel Sounds, Non Tender, Soft Extremity: No Calf Tenderness, Other (Slight tenderness to palpation of dorsal R foot. R leg swelling and erythema that is slightly improved from yesterday. Dark discoloration of L leg that it not painful. Numbness throughout both legs. ) Neurologic/Psychiatric: Alert, Oriented x3 Lymphatic: No Adenopathy Diagnosis/Problems Diagnosis/Problems (1) Non-insulin dependent type 2 diabetes mellitus Status: Chronic (2) Cellulitis of right foot Status: Acute (3) Diabetic foot ulcers Status: Acute Qualifiers: Qualified Codes: E11.621 - Type 2 diabetes mellitus with foot ulcer; L97.419 - Non-pressure chronic ulcer of right heel and midfoot with unspecified severity (4) MAGALI (acute kidney injury) Status: Resolved Resolution Date/Time: 08/09/20 @ 21:20 (5) Hypertension Status: Chronic Qualifiers: Qualified Codes: I10 - Essential (primary) hypertension Supervisory-Addendum Brief Verification & Attestation Participated in pt care: history, physical Personally performed: exam Care discussed with: Medical Student Procedures: n/a Verification and Attestation of Medical Student E/M Service A medical student performed and documented this service in my presence. I reviewed and verified all information documented by the medical student and made modifications to such information, when appropriate. I personally performed the physical exam and medical decision making. Dariusz Duncan, Aug 09, 2020,21:20 08/09/20 Right LE DM Wound: Continue IV antibiotics, Wound care per wound team, will start to transition antibiotics to PO RL Cellulits: Improving NIDDM with Neuropathy: Discussed the importance of checking feet daily and getting better control of DM, Discussed starting Invokana, started Metformin today, Met with DM nurse educator today NIDDM with arterial dz Uncontrolled DM: A1c 9.1 HLD MAGALI: Resolved Left LE Fissure DVT Px: Lovenox Dispo: Possible D/c tomorrow, Will need close f.u with PCP for DM control INDIRA COPELAND MED STUDENT Aug 09, 2020 08:47 DARIUSZ DUNCAN MD Aug 09, 2020 21:24
[2020-08-09] MEDS: DAKIN'S 1/4 STRENGTH (0.125%) 473 ML BTL TOP SCH ×2 (09:10→20:47)
[2020-08-09] MEDS: SENNA W/DOCUSATE (SENOKOT S) TABLET PO SCH ×2 (10:37→19:40)
--- NOTE | 2020-08-09 11:27 | Progress Note - Cardiology ---
Cardiology SOAP Progress Note Subjective: Lying in bed Denies any CP or SOB Objective: I&O/Vital Signs 08/10/20 08/10/20 08/10/20 08/10/20 00:00 04:00 08:00 08:00 Temp 36.6 36.3 36.7 Pulse 81 80 88 Resp 18 18 18 B/P (MAP) 138/79 (98) 151/85 (107) 145/85 (105) Pulse Ox 96 93 94 96 O2 Delivery Room Air Room Air Room Air Room Air O2 Flow Rate 0.00 08/10/20 00:00 Intake Total 2500 ml Output Total 2300 ml Balance 200 ml Constitutional: AAO x 3, well-developed, well-nourished Respiratory: chest is bilaterally symmetric, lungs clear to auscultation Cardiovascular: regular rate-rhythm, S1 and S2 Gastrointestional: soft, audible bowel sounds Extremities: other (see skin assessment), wound (dressing in place - not removed) Neurologic/Psychiatric: grossly intact (moves all extremities) Skin: other (chronic venous stasis changes to LLE, cellulitis of RLE) Results/Procedures: Labs Laboratory Tests 08/09/20 16:51: Glucometer 249H 08/09/20 20:17: Glucometer 230H 08/10/20 04:58: Glucometer 175H 08/10/20 05:55: Sodium Level 137, Potassium Level 4.3, Chloride Level 104, Carbon Dioxide Level 26, Anion Gap 7, Blood Urea Nitrogen 19H, Creatinine 1.12, Estimat Glomerular Filtration Rate > 60, BUN/Creatinine Ratio 17, Glucose Level 183H, Calcium Level 8.4L, Corrected Calcium 9.0, Total Bilirubin 0.7, Aspartate Amino Transf (AST/SGOT) 34, Alanine Aminotransferase (ALT/SGPT) 79H, Alkaline Phosphatase 113, Total Protein 7.0, Albumin 3.2 08/10/20 11:26: Glucometer 210H Microbiology 08/03/20 Gram Stain - Final, Complete 08/03/20 Anaerobic Culture - Final, Complete Mixed Anaerobic Johana Prevotella species 08/03/20 Surgical Culture - Final, Complete Gram Pos Mixed Bacterial Johana 08/02/20 Blood Culture - Final, Complete No growth A/P: Assessment: Right foot nonhealing wound with cellulitis. status post debridement, JOAN was normal. Arterial ultrasound shows possible below the knee disease - followed by Dr. Hernandez Dyspnea on exertion, , COVID 19 testing was negative Acute renal insufficiency - improved HTN HLP DM- management per PCP Liver enzyme elevation - follwed by medical services Plan: Management of cellulitis per medical services Liver enzyme elevation of undetermined etiology - statin currently being held - management per medical services Monitor lab Replace electrolytes as indicated REBECCA SPARKS Aug 09, 2020 11:27
[2020-08-09 12:00] VITALS: BP 149/90
[2020-08-09] MEDS: ENOXAPARIN 40 MG/0.4 ML (LOVENOX) SYR SC SCH (15:27)
--- NOTE | 2020-08-09 15:27 | NUR ---
CM/SS follow up. The patient was sitting up in the chair watching tv. He reports that he is feeling fine today. The patient reports that he's seen the surgeon but does not know what his plan is. Outpatient Wound Care: CM/SS was notified by the physician that the patient may need to follow with outpatient wound care with Dr. Carias if home health will not service the patient. Per chart review, Dr. Carias states he will follow up if needed. The patient reports that he would "make it work" if he needed. Home Health: During discharge planning meeting Oscar BAUTISTA asked [facility] to take a second look at referral. Chevy from the agency received information to look at the referral to determine if they can take the patient. This is the preferred option due to patient living 45 minutes from the hospital and the multiple visit through outpatient wound care. CM/SS will continue to follow.
[2020-08-09 15:30] VITALS: BP 133/81
--- NOTE | 2020-08-09 16:53 | Progress Note - Cardiology ---
Cardiology SOAP Progress Note Subjective: Gen malaise present No cp or palp or syncope No shortness of breath at rest No n/v Objective: I&O/Vital Signs 08/09/20 08/09/20 08/09/20 08:00 08:00 12:00 Temp 36.7 36.2 Pulse 84 84 Resp 20 20 B/P (MAP) 144/91 (108) 149/90 (109) Pulse Ox 94 94 94 O2 Delivery Room Air Room Air Room Air 08/09/20 00:00 Intake Total 2180 ml Output Total 3200 ml Balance -1020 ml Constitutional: AAO x 3, well-developed, well-nourished Respiratory: chest is bilaterally symmetric, lungs clear to auscultation Cardiovascular: regular rate-rhythm, S1 and S2 Gastrointestional: soft, audible bowel sounds Extremities: other (see skin assessment), wound (dressing in place - not removed) Neurologic/Psychiatric: grossly intact (moves all extremities) Skin: other (chronic venous stasis changes to LLE, cellulitis of RLE) Results/Procedures: Labs Laboratory Tests 08/08/20 20:04: Glucometer 222H 08/09/20 05:34: Glucometer 178H 08/09/20 05:45: White Blood Count 7.5, Red Blood Count 4.66, Hemoglobin 13.7, Hematocrit 42, Mean Corpuscular Volume 91, Mean Corpuscular Hemoglobin 29, Mean Corpuscular H emoglobin Concent 33, Red Cell Distribution Width 12.1, Platelet Count 347, Mean Platelet Volume 9.2, Immature Granulocyte % (Auto) 5, Neutrophils (%) (Auto) 67, Lymphocytes (%) (Auto) 13, Monocytes (%) (Auto) 10, Eosinophils (%) (Auto) 5, Basophils (%) (Auto) 1, Neutrophils # (Auto) 5.0, Lymphocytes # (Auto) 1.0, Monocytes # (Auto) 0.7, Eosinophils # (Auto) 0.4H, Basophils # (Auto) 0.1, Immature Granulocyte # (Auto) 0.3H, Sodium Level 137, Potassium Level 4.5, Chloride Level 103, Carbon Dioxide Level 24, Anion Gap 10, Blood Urea Nitrogen 19H, Creatinine 1.11, Estimat Glomerular Filtration Rate > 60, BUN/Creatinine Ratio 17, Glucose Level 189H, Calcium Level 8.6 1/19/21 11:03: Glucometer 217H 08/09/20 16:51: Microbiology 08/03/20 Gram Stain - Final, Resulted 08/03/20 Anaerobic Culture - Preliminary, Resulted Culture In Progress 08/03/20 Surgical Culture - Final, Resulted Gram Pos Mixed Bacterial Johana 08/02/20 Blood Culture - Final, Complete No growth Laboratory Tests 08/08/20 04:20 08/09/20 05:45 A/P: Assessment: Right foot nonhealing wound with cellulitis. status post debridement, JOAN was normal. Arterial ultrasound shows possible below the knee disease - followed by Dr. Hernandez Dyspnea on exertion, , COVID 19 testing was negative Acute renal insufficiency - improved HTN HLP DM- management per PCP Liver enzyme elevation - follwed by medical services Plan: Management of cellulitis per medical services Liver enzyme elevation of undetermined etiology - statin currently being held - management per medical services Monitor lab Replace electrolytes as indicated ALFREDO LAU MD FACP FACC CCDS Aug 09, 2020 16:53
[2020-08-09 20:00] VITALS: BP 145/87
[2020-08-10] VITALS: BP 138/79
[2020-08-10] MEDS: CEFEPIME 2,000 MG/SWFI 20 ML IV PUSH IV SCH ×4 (02:21→11:22)
[2020-08-10 04:00] VITALS: BP 151/85
[2020-08-10] MEDS: inSUlin ASPART (NovoLOG) 1 UNIT/0.01 ML (CHARGE PER UNIT) SC SCH ×2 (05:17→11:30)
[2020-08-10] MEDS: metroNIDAZOLE 500 MG/100 ML IVPB (PRE-MIX) IV SCH ×2 (05:35→13:55)
[2020-08-10 06:41] LABS: ALBUMIN 3.2 GM/DL (3.2-4.5); CHLORIDE 104 MMOL/L (98-107); POTASSIUM 4.3 MMOL/L (3.6-5.0); SODIUM 137 MMOL/L (135-145)
[2020-08-10 06:43] LABS: CALCIUM 8.4 MG/DL (8.5-10.1)
[2020-08-10 06:44] LABS: GLUCOSE 183 MG/DL (70-105)
[2020-08-10 06:45] LABS: CARBON DIOXIDE 26 MMOL/L (21-32)
[2020-08-10 06:46] LABS: BILIRUBIN,TOTAL 0.7 MG/DL (0.1-1.0)
[2020-08-10 06:47] LABS: ALKALINE PHOSPHATASE 113 U/L (40-136); CREATININE SERUM 1.12 MG/DL (0.60-1.30); GFR ESTIMATED > 60
[2020-08-10 06:48] LABS: BUN/CREATININE RATIO 17
[2020-08-10 06:50] LABS: ALANINE AMINOTRANSFERASE 79 U/L (0-55)
[2020-08-10] MEDS ORDERED: metFORMIN 500 MG (GLUCOPHAGE) TAB PO SCH (07:00)
--- NOTE | 2020-08-10 07:04 | Progress Note - Surgery ---
FUNMILAYO BUTLER MED STUDENT 08/10/20 0704: Subjective Date Seen by a Provider: Aug 10, 2020 Time Seen by a Provider: 07:00 Subjective/Events-last exam Pt asleep upon entering but easily woken. Pt denies any complaints. RLE erythema continuing to improve and ulceration continuing to express purulent material. Pt notes BM and denies N/V, SOB, abdominal pain. No acute events over night. Review of Systems General: No Chills HEENT: No Head Aches Pulmonary: No Dyspnea Cardiovascular: No: Chest Pain Gastrointestinal: No: Nausea, Vomiting, Abdominal Pain Focused Exam Time of Focused Exam: 09:30 Objective Exam Vital Signs Date Time Temp Pulse Resp B/P (MAP) Pulse Ox O2 Delivery O2 Flow Rate FiO2 08/10/20 04:00 36.3 80 18 151/85 (107) 93 Room Air 08/10/20 00:00 36.6 81 18 138/79 (98) 96 Room Air 08/09/20 20:00 Room Air 08/09/20 20:00 36.4 87 22 145/87 (106) 95 Room Air 08/09/20 15:30 36.8 83 20 133/81 (98) 99 Room Air 08/09/20 12:00 36.2 84 20 149/90 (109) 94 Room Air 08/09/20 08:00 36.7 84 20 144/91 (108) 94 Room Air 08/09/20 08:00 94 Room Air I & O 08/10/20 07:00 Intake Total 3150 ml Output Total 3025 ml Balance 125 ml Capillary Refill : Less Than 3 SecondsLess Than 3 Seconds General Appearance: No Apparent Distress, WD/WN HEENT: PERRL/EOMI Neck: Full Range of Motion, Non Tender, Supple Respiratory: Chest Non Tender, Lungs Clear, Normal Breath Sounds, No Accessory Muscle Use, No Respiratory Distress Cardiovascular: Regular Rate, Rhythm, No Murmur, Normal Peripheral Pulses Peripheral Pulses: 2+ Dorsalis Pedis (R), 2+ Left Dors-Pedis (L), 2+ Radial Pulses (R), 2+ Radial Pulses (L) Gastrointestinal: non tender, soft Extremity: No Calf Tenderness, Other (Slight tenderness to palpation of dorsal R foot. R leg swelling and erythema that is slightly improved from yesterday. Dark discoloration of L leg that it not painful. Numbness throughout both legs. ) Neurologic/Psychiatric: Alert, Oriented x3 Skin: Warm/Dry, Erythema (RLE), Other (LLE dark discoloration) Lymphatic: No Adenopathy Results Lab Laboratory Tests 08/09/20 11:03: Glucometer 217H 08/09/20 16:51: Glucometer 249H 08/09/20 20:17: Glucometer 230H 08/10/20 04:58: Glucometer 175H 08/10/20 05:55: Sodium Level 137, Potassium Level 4.3, Chloride Level 104, Carbon Dioxide Level 26, Anion Gap 7, Blood Urea Nitrogen 19H, Creatinine 1.12, Estimat Glomerular Filtration Rate > 60, BUN/Creatinine Ratio 17, Glucose Level 183H, Calcium Level 8.4L, Corrected Calcium 9.0, Total Bilirubin 0.7, Aspartate Amino Transf (AST/SGOT) 34, Alanine Aminotransferase (ALT/SGPT) 79H, Alkaline Phosphatase 113, Total Protein 7.0, Albumin 3.2 Microbiology 08/03/20 Gram Stain - Final, Resulted 08/03/20 Anaerobic Culture - Preliminary, Resulted Culture In Progress 08/03/20 Surgical Culture - Final, Resulted Gram Pos Mixed Bacterial Johana 08/02/20 Blood Culture - Final, Complete No growth Assessment/Plan Assessment/Plan Assessment/Plan R plantar foot ulcer: s/p surgical debridement, continue local wound care. ABIs within normal limits culture pending L plantar foot callus and fissure: local wound care RLE Cellulitis- Cefepine 20 mL and Metronidazole 100 mL Leukocytosis- improving, 7.5 yesterday AM, awaiting culture Continue abx continue wound care COVID negative Non-insulin dependent DM- glucose level was elevated this morning to 183 diet as tolerated, Encourage ambulation and IS Follow up with Dr. Carias for wound care if Home Health unavailable MICHAELLE JIMENES DO 08/11/20 0815: Subjective Subjective/Events-last exam No complaints. Less erythema, slight drainage from wound improving. No necrotic appearing tissue. Denies n/v fever sweats chills shortness of breath or chest pain. Objective Exam General Appearance: No Apparent Distress, WD/WN HEENT: PERRL/EOMI Neck: Full Range of Motion, Non Tender, Supple Respiratory: Chest Non Tender, No Accessory Muscle Use, No Respiratory Distress Cardiovascular: Regular Rate, Rhythm, No JVD Gastrointestinal: non tender, soft Extremity: No Calf Tenderness Neurologic/Psychiatric: Alert, Oriented x3 Skin: Warm/Dry, Erythema (RLE less. wound dorsum right foot open wound no necrotic appearing tissue, minimal drainage), Other (LLE dark discoloration) Lymphatic: No Adenopathy Assessment/Plan Assessment/Plan Assessment/Plan R plantar foot ulcer: s/p surgical debridement, continue local wound care. ABIs within normal limits culture pending L plantar foot callus and fissure: local wound care RLE Cellulitis- Cefepine and Metronidazole Leukocytosis- improving, 7.5 yesterday AM, awaiting culture Continue abx continue wound care COVID negative Non-insulin dependent DM- glucose level was elevated this morning to 183 diet as tolerated, Encourage ambulation and IS Supervisory-Addendum Brief Verification & Attestation Participated in pt care: history, MDM, physical Personally performed: exam, history, MDM, supervision of care Care discussed with: Medical Student Procedures: n/a Results interpretation: Verified all documentation Verification and Attestation of Medical Student E/M Service A medical student performed and documented this service in my presence. I reviewed and verified all information documented by the medical student and made modifications to such information, when appropriate. I personally performed the physical exam and medical decision making. Michaelle Jimenes, Aug 10, 2020,08:14 FUNMILAYO BUTLER MED STUDENT Aug 10, 2020 07:04 MICHAELLE JIMENES DO Aug 11, 2020 08:15
[2020-08-10 08:00] VITALS: BP 145/85
[2020-08-10] MEDS: SENNA W/DOCUSATE (SENOKOT S) TABLET PO SCH (08:11)
--- NOTE | 2020-08-10 08:46 | Diagnostic Imaging Report ---
PROCEDURE: US Hepatic (Liver). TECHNIQUE: Multiple Real-time grayscale images were obtained over the right upper quadrant in various projections. INDICATION: Abnormal liver enzymes. FINDINGS: The liver is enlarged measuring 21 cm. There is a diffuse echogenic appearance of the liver, consistent with fatty change. No focal liver lesions are seen. The bile ducts are not dilated. The common duct is obscured by bowel gas. Also, there is acoustical shadowing from the gallbladder which appears to be filled with gallstones. The gallbladder wall measures 3 mm. There is no pericholecystic fluid. The pancreas and aorta are obscured by bowel gas as well as acoustical shadowing from the liver and gallbladder. The portal vein shows normal flow with Doppler sampling. The right kidney appears normal measuring 13.3 x 6.4 x 5.8 cm. There is no ascites. IMPRESSION: 1. Hepatomegaly with diffuse fatty change. 2. Cholelithiasis. 3. Midline structures are obscured. Dictated by: Dictated on workstation # [id number]
[2020-08-10] MEDS: DAKIN'S 1/4 STRENGTH (0.125%) 473 ML BTL TOP SCH (09:40)
--- NOTE | 2020-08-10 10:40 | NUR ---
LEILA/TATIANNA finalized discharge. Plan: Patient will return home today with outpatient wound care (Dr. Carias) and a follow up with Dr. Jimenes in 2 weeks. Gas card: LEILA/TATIANNA provided the patient with a 25 dollar gas card to assist with fuel cost for frequent visits. Home Health: [facility] states after a closer look at the patient they are still going to decline to due the patient being "out of service area". No further needs at this time. Addendum: 08/10/20 at 1404 by ISAEL CAMPUZANO MICHAEL update: MICHAEL was notified by the patient's primary care nurse Piedad that when she attempted to make the appointment for wound care they would not set up a time due to patient being self pay. The patient needed to have all documents in before wound care would see him. LEILA/TATIANNA contacted Cathy with [employer]. She reports he has filled out the form but does not have documents sent it. She is unsure if he will qualify. Cathy states she would be willing to talk with Essie. LEILA/TATIANNA contacted Essie through wound care informing her of the conversation with financial services and the need for outpatient wound care follow up before the patient discharged from the hospital. Essie got approval form [facility] to schedule the patient. The patient will be responsible for a 25 dollar co-pay at each visit. If he does not qualify for financial he will be changed for each service as a self pay. LEILA/TATIANNA notified the patient. He verbalized understanding.
--- NOTE | 2020-08-10 11:43 | Progress Note - Cardiology ---
Cardiology SOAP Progress Note Subjective: Lying in bed No new c/o Objective: I&O/Vital Signs 08/10/20 08/10/20 08/10/20 08/10/20 00:00 04:00 08:00 08:00 Temp 36.6 36.3 36.7 Pulse 81 80 88 Resp 18 18 18 B/P (MAP) 138/79 (98) 151/85 (107) 145/85 (105) Pulse Ox 96 93 94 96 O2 Delivery Room Air Room Air Room Air Room Air O2 Flow Rate 0.00 08/10/20 00:00 Intake Total 2500 ml Output Total 2300 ml Balance 200 ml Constitutional: AAO x 3, well-developed, well-nourished Respiratory: chest is bilaterally symmetric, lungs clear to auscultation Cardiovascular: regular rate-rhythm, S1 and S2 Gastrointestional: soft, audible bowel sounds Extremities: other (see skin assessment), wound (dressing in place - not removed) Neurologic/Psychiatric: grossly intact (moves all extremities) Skin: other (chronic venous stasis changes to LLE, cellulitis of RLE) Results/Procedures: Labs Laboratory Tests 08/09/20 16:51: Glucometer 249H 08/09/20 20:17: Glucometer 230H 08/10/20 04:58: Glucometer 175H 08/10/20 05:55: Sodium Level 137, Potassium Level 4.3, Chloride Level 104, Carbon Dioxide Level 26, Anion Gap 7, Blood Urea Nitrogen 19H, Creatinine 1.12, Estimat Glomerular Filtration Rate > 60, BUN/Creatinine Ratio 17, Glucose Level 183H, Calcium Level 8.4L, Corrected Calcium 9.0, Total Bilirubin 0.7, Aspartate Amino Transf (AST/SGOT) 34, Alanine Aminotransferase (ALT/SGPT) 79H, Alkaline Phosphatase 113, Total Protein 7.0, Albumin 3.2 08/10/20 11:26: Glucometer 210H Microbiology 08/03/20 Gram Stain - Final, Complete 08/03/20 Anaerobic Culture - Final, Complete Mixed Anaerobic Johana Prevotella species 08/03/20 Surgical Culture - Final, Complete Gram Pos Mixed Bacterial Johana 08/02/20 Blood Culture - Final, Complete No growth Laboratory Tests 08/09/20 05:45 08/10/20 05:55 Procedures NAME: ELAINE CAMARA [facility] REC#: [id number] PT STATUS: ADM IN : 1955 PHYSICIAN: DARIUSZ DUNCAN MD ADMIT DATE: 08/02/20 Signed Date of Exam:08/10/20 US HEPATIC (LIVER)[id number] PROCEDURE: US Hepatic (Liver). TECHNIQUE: Multiple Real-time grayscale images were obtained over the right upper quadrant in various projections. INDICATION: Abnormal liver enzymes. FINDINGS: The liver is enlarged measuring 21 cm. There is a diffuse echogenic appearance of the liver, consistent with fatty change. No focal liver lesions are seen. The bile ducts are not dilated. The common duct is obscured by bowel gas. Also, there is acoustical shadowing from the gallbladder which appears to be filled with gallstones. The gallbladder wall measures 3 mm. There is no pericholecystic fluid. The pancreas and aorta are obscured by bowel gas as well as acoustical shadowing from the liver and gallbladder. The portal vein shows normal flow with Doppler sampling. The right kidney appears normal measuring 13.3 x 6.4 x 5.8 cm. There is no ascites. IMPRESSION: 1. Hepatomegaly with diffuse fatty change. 2. Cholelithiasis. 3. Midline structures are obscured. Dictated by: Dictated on workstation # [id number] Dict: 08/10/20842 Trans: 08/10/20 112 [id number] Interpreted by: ALONDRA HORNE MD Electronically signed by: ALONDRA HORNE MD 08/10/20 1121 A/P: Assessment: Right foot nonhealing wound with cellulitis. status post debridement, JOAN was normal. Arterial ultrasound shows possible below the knee disease - followed by Dr. Hernandez Dyspnea on exertion, , COVID 19 testing was negative Acute renal insufficiency - improved HTN HLP DM- management per PCP Liver enzyme elevation - follwed by medical services Plan: Management of cellulitis per medical services Liver enzyme elevation of undetermined etiology - statin currently being held - management per medical services Monitor lab Replace electrolytes as indicated REBECCA SPARKS Aug 10, 2020 11:43
--- NOTE | 2020-08-10 11:53 | Progress Note - Hospitalist ---
INDIRA COPELAND MED STUDENT 08/10/20 1153: Subjective HPI/CC On Admission Date Seen by Provider: Aug 10, 2020 Time Seen by Provider: 09:40 CC: Right DM foot ulcer with sepsis from cellulitis HPI: This is a 64yoWM clinic patient of Dr Avina who has a h/o DM who presents to the [facility] ER with right foot drainage. Patient was found to have poor hygiene and evidence of right DM foot ulcer with cellulitis. Patient was tachycardic and feverish. Abx broad spectrum given and Dr Jimenes has been consulted for debridement. Lovenox was given for DVT PPx. Dr Hernandez will assess him for vascular insuff and cardiac clearance. 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 Subjective/Events-last exam Patient is sitting upright in bed this morning and does not appear to be in any distress. Denies any pain in his legs. States he does not have any new concerns, Pains, chest pain, SOB. Will be discharged today with surgery f/u as well as w ound care. He received a liver US this morning that showed cholelithiasis, will have patient f/u with a surgeon, but is not an emergent issue. Focused Exam Time of Focused Exam: 09:30 Objective Exam Vital Signs Vital Signs Date Time Temp Pulse Resp B/P (MAP) Pulse Ox O2 Delivery O2 Flow Rate FiO2 08/10/20 08:00 36.7 88 18 145/85 (105) 96 Room Air 08/10/20 08:00 0.00 Capillary Refill : Less Than 3 SecondsLess Than 3 Seconds General Appearance: No Apparent Distress, WD/WN Neck: Full Range of Motion, Non Tender Respiratory: Chest Non Tender, Lungs Clear, Normal Breath Sounds, No Accessory Muscle Use, No Respiratory Distress Cardiovascular: Regular Rate, Rhythm, No Edema, No Gallop, No JVD, No Murmur, Normal Peripheral Pulses Gastrointestinal: Normal Bowel Sounds, No Organomegaly, No Pulsatile Mass, Non Tender, Soft Rectal: Deferred Back: Normal Inspection Extremity: Inflammation (Inflammation of R leg is still improving.), Swelling Neurologic/Psychiatric: Alert, Oriented x3 Skin: Normal Color, Warm/Dry Results/Procedures Lab Laboratory Tests 08/10/20 05:55 Patient resulted labs reviewed. Assessment/Plan Assessment and Plan Assess & Plan/Chief Complaint Pt stable enough to be discharged today. Diabetic Foot Ulcer -Pt foot continuing to heal -Has F/u appointment set up with surg -Has f/u with wound care Uncontrolled Diabetes -Adding another medication for diabetes control, as well as current metformin Sepsis -Switch to oral ABX Diagnosis/Problems Diagnosis/Problems (1) Diabetic foot ulcers Status: Acute Qualifiers: Qualified Codes: E11.621 - Type 2 diabetes mellitus with foot ulcer; L97.419 - Non-pressure chronic ulcer of right heel and midfoot with unspecified severity (2) Cellulitis of right foot Status: Acute (3) Gout (4) Diabetes (5) Sepsis Supervisory-Addendum Brief Verification & Attestation Participated in pt care: history, physical Personally performed: exam Care discussed with: other Procedures: n/a n/a DARIUSZ DUNCAN MD 08/10/20 2100: Supervisory-Addendum Brief Verification & Attestation Participated in pt care: history, physical Personally performed: exam, history Care discussed with: Medical Student Procedures: n/a Verification and Attestation of Medical Student E/M Service A medical student performed and documented this service in my presence. I reviewed and verified all information documented by the medical student and made modifications to such information, when appropriate. I personally performed the physical exam and medical decision making. Dariusz Duncan, Aug 10, 2020,20:59 Please see D/c Summary INDIRA COPELAND MED STUDENT Aug 10, 2020 11:53 DARIUSZ DUNCAN MD Aug 10, 2020 21:00
[2020-08-10 12:00] VITALS: BP 137/80
--- NOTE | 2020-08-10 12:16 | Discharge Summary ---
Diagnosis/Chief Complaint Date of Admission Aug 02, 2020 at 13:30 Date of Discharge 08/10/2020 Admission Diagnosis Admission Diagnosis RLE Cellulitis RLE DM Foot Wound NIDDM Neuropathy NIDDM Uncontrolled NIDDM with arterial dz AKF Elevated LFTs Cholelithiasis Discharge Diagnosis See Above Discharge Summary-Simple/Stand Procedures Debridement by Surgery on RLE foot wound Consultations Dr Bond: Cardiology Dr Jimenes: General Surgery Discharge Physical Examination Allergies: Coded Allergies: Penicillins (Verified Allergy, Unknown, 08/02/20) Vitals & I&Os Vital Sign - Last 12Hours Date Time Temp Pulse Resp B/P (MAP) Pulse Ox O2 Delivery O2 Flow Rate FiO2 08/10/20 08:00 36.7 88 18 145/85 (105) 96 Room Air 08/10/20 08:00 0.00 Intake and Output 08/10/20 00:00 Intake Total 2500 ml Output Total 2300 ml Balance 200 ml General Appearance: Alert, Oriented X3, Cooperative, No Acute Distress HEENT: Mucous Memb Moist/[place] Respiratory: Clear to Auscultation, Normal Air Movement Cardiovascular: Regular Rate, No Murmurs Abdominal: Normal Bowel Sounds, Soft, No Tenderness, No Masses Extremities: Other (Swelling and erythema improved RLE) Neuro: Normal Speech, Strength at 5/5 X4 Ext, Sensation Intact, Cranial Nerves 3-12 NL Psych/Mental Status: Mental Status NL, Mood NL Hospital Course See final discharge diagnosis. Discussion & Recommendations 64 yo M that presented with worsening redness and swelling in RLE found to have DM foot wound. Patient was seen by surgery and had wound debrided during admission. Will f.u with wound care after d/c. He was seen by DM nurse and his DM meds were adjusted during admission. Close f.u with PCP, wound care and Dr Jimenes following D.c Discharge Condition at discharge stable Instructions to patient/family Please see electronic discharge instructions given to patient. Discharge Medications Reviewed and agree with Discharge Medication list on patient's Discharge Instruction sheet Copy Copies To 1: JESSICA JUAREZ MD, HOLLY R MD Aug 10, 2020 12:16
[2020-08-10] MEDS ORDERED: METF-397 PO (12:26)
[2020-08-10] MEDS ORDERED: CEFD300C3 PO (12:26)
[2020-08-10] MEDS ORDERED: CANA100T PO (12:26)
[2020-08-10] MEDS ORDERED: METR500T PO (12:26)
--- NOTE | 2020-08-10 12:28 | Discharge Summary ---
Discharge [facility] Reconcile Patient Problems Problems Reviewed?: Yes Discharge Medications New, Converted or Re-Newed RX: Transmitted to Pharmacy New Medications: Canagliflozin (Invokana) 100 Mg Tablet 100 MG PO DAILY, #30 TAB Cefdinir (Cefdinir) 300 Mg Capsule 300 MG PO BID for 7 Days, #14 CAP Metronidazole (Flagyl) 500 Mg Tablet 500 MG PO BID for 7 Days, #14 TAB Changed Medications: Metformin HCl (Metformin HCl) 500 Mg Tablet 500 MG PO BID, #60 TAB (Changed from: DAILY) Continued Medications: Allopurinol (Allopurinol) 300 Mg Tablet 300 MG PO DAILY, TAB Aspirin (Aspirin EC) 325 Mg Tablet. 325-650 MG PO Q6H PRN for PAIN-MILD (1-4) OR TEMPATURE, TAB Atorvastatin Calcium (Atorvastatin Calcium) 20 Mg Tablet 20 MG PO DAILY, TAB Lisinopril/Hydrochlorothiazide (Lisinopril-Hctz 20-25 mg Tab) 1 Each Tablet 1 EACH PO DAILY, TAB Patient Instructions Goal/Follow Up Appt: You have a f.u appt with Dr Avina on Aug 18 @ 215 Patient Instructions: - Make sure to black pickler your antibiotics at the pharmacy and take them until they are gone - Make sure to keep your appt with Wound care - Call with any changes in your swelling or redness in your leg Activity & Diet Discharge Diet: ADA Diet Activity as Tolerated: Yes Copy Copies To 1: JESSICA AVINA MD, HOLLY R MD Aug 10, 2020 12:28
[2020-08-10] MEDS: ENOXAPARIN 40 MG/0.4 ML (LOVENOX) SYR SC SCH (16:13)
--- NOTE | 2020-08-10 17:48 | Progress Note - Cardiology ---
Cardiology SOAP Progress Note Subjective: No cp or palp or syncope or shortness of breath No focal weakness No n/v Objective: I&O/Vital Signs 08/10/20 08/10/20 08/10/20 08:00 08:00 12:00 Temp 36.7 37.1 Pulse 88 88 Resp 18 18 B/P (MAP) 145/85 (105) 137/80 (99) Pulse Ox 94 96 96 O2 Delivery Room Air Room Air Room Air O2 Flow Rate 0.00 08/10/20 00:00 Intake Total 2500 ml Output Total 2300 ml Balance 200 ml Constitutional: AAO x 3, well-developed, well-nourished Respiratory: chest is bilaterally symmetric, lungs clear to auscultation Cardiovascular: regular rate-rhythm, S1 and S2 Gastrointestional: soft, audible bowel sounds Extremities: other (see skin assessment), wound (dressing in place - not removed) Neurologic/Psychiatric: grossly intact (moves all extremities) Skin: other (chronic venous stasis changes to LLE, cellulitis of RLE) Results/Procedures: Labs Laboratory Tests 08/09/20 20:17: Glucometer 230H 08/10/20 04:58: Glucometer 175H 08/10/20 05:55: Sodium Level 137, Potassium Level 4.3, Chloride Level 104, Carbon Dioxide Level 26, Anion Gap 7, Blood Urea Nitrogen 19H, Creatinine 1.12, Estimat Glomerular Filtration Rate > 60, BUN/Creatinine Ratio 17, Glucose Level 183H, Calcium Level 8.4L, Corrected Calcium 9.0, Total Bilirubin 0.7, Aspartate Amino Transf (AST/SGOT) 34, Alanine Aminotransferase (ALT/SGPT) 79H, Alkaline Phosphatase 113, Total Protein 7.0, Albumin 3.2 08/10/20 11:26: Glucometer 210H Microbiology 08/03/20 Gram Stain - Final, Complete 08/03/20 Anaerobic Culture - Final, Complete Mixed Anaerobic Johana Prevotella species 08/03/20 Surgical Culture - Final, Complete Gram Pos Mixed Bacterial Johana 08/02/20 Blood Culture - Final, Complete No growth Laboratory Tests 08/09/20 05:45 08/10/20 05:55 A/P: Assessment: Right foot nonhealing wound with cellulitis. status post debridement, JOAN was normal. Arterial ultrasound shows possible below the knee disease - followed by Dr. Mary Dyspnea on exertion, , COVID 19 testing was negative Acute renal insufficiency - improved HTN HLP DM- management per PCP Liver enzyme elevation - follwed by medical services Plan: Management of cellulitis per medical services Liver enzyme elevation of undetermined etiology - statin currently being held - management per medical services Monitor lab Replace electrolytes as indicated ALFREDO LAU MD FACP FAC CCDS Aug 10, 2020 17:48
== END 2020-08-10 16:20 | disposition home health service (06) | DRG 854 ==
LOC: ER FS 10:16 → 4TH 13:30
PROVIDERS: ADMIT Internal Medicine; ATTEND Internal Medicine
PROC: 0JBQ0ZZ Excision of Right Foot Subcutaneous Tissue and Fascia, Open Approach (ICD-10-PCS; principal; 2020-08-03 10:47)
DX: A41.9 Sepsis, unspecified organism (principal); L97.419 Non-pressure chronic ulcer of right heel and midfoot with unspecified severity; L03.115 Cellulitis of right lower limb; N17.9 Acute kidney failure, unspecified; E11.621 Type 2 diabetes mellitus with foot ulcer; E11.65 Type 2 diabetes mellitus with hyperglycemia; E11.51 Type 2 diabetes mellitus with diabetic peripheral angiopathy without gangrene; E11.40 Type 2 diabetes mellitus with diabetic neuropathy, unspecified; Z20.822 Contact with and (suspected) exposure to COVID-19; E78.00 Pure hypercholesterolemia, unspecified; E78.5 Hyperlipidemia, unspecified; I10 Essential (primary) hypertension; M10.9 Gout, unspecified; K59.00 Constipation, unspecified; R74.8 Abnormal levels of other serum enzymes; K80.20 Calculus of gallbladder without cholecystitis without obstruction
CPT/HCPCS: 36415; 71045; 73630; 76705; 80048; 80053; 80061; 80202; 82805; 82962; 83036; 83605; 85007; 85025; 85027; 86141; 87040; 87070; 87075; 87076; 87185; 87205; 87635; 93005; 93306; 93922; 93925; 94760

== ENCOUNTER → 2020-08-11 | Outpatient (CLI) | payer SELFPAY ==
[~2020-08-11] MED LIST: ALLO300T2 PO; ASPI325T32 PO; ATOR20TA66 PO; CANA100T PO; CEFD300C3 PO; LISI1TAB26 PO; METF-397 PO; METR500T PO
== END ==
LOC: WOUNDCARE 09:00
PROVIDERS: ATTEND Surgery
DX: E11.621 Type 2 diabetes mellitus with foot ulcer (principal); E11.42 Type 2 diabetes mellitus with diabetic polyneuropathy; L97.513 Non-pressure chronic ulcer of other part of right foot with necrosis of muscle; L97.522 Non-pressure chronic ulcer of other part of left foot with fat layer exposed; L97.222 Non-pressure chronic ulcer of left calf with fat layer exposed; I70.235 Atherosclerosis of native arteries of right leg with ulceration of other part of foot; I87.332 Chronic venous hypertension (idiopathic) with ulcer and inflammation of left lower extremity
CPT/HCPCS: 11042; 11043; 88304; A6197; G0463; L4386

== ENCOUNTER → 2020-08-18 | Outpatient (CLI) | payer SELFPAY | LOC: WOUNDCARE 15:01 | PROVIDERS: ATTEND Surgery | DX: E11.621 Type 2 diabetes mellitus with foot ulcer (principal); E11.42 Type 2 diabetes mellitus with diabetic polyneuropathy; L97.512 Non-pressure chronic ulcer of other part of right foot with fat layer exposed; L97.522 Non-pressure chronic ulcer of other part of left foot with fat layer exposed; L97.221 Non-pressure chronic ulcer of left calf limited to breakdown of skin; I70.245 Atherosclerosis of native arteries of left leg with ulceration of other part of foot; I87.332 Chronic venous hypertension (idiopathic) with ulcer and inflammation of left lower extremity; I96 Gangrene, not elsewhere classified | CPT/HCPCS: 11042; 97597; G0463 ==

== ENCOUNTER → 2020-08-25 | Outpatient (CLI) | payer SELFPAY | LOC: WOUNDCARE 13:27 | PROVIDERS: ATTEND Surgery | DX: E11.621 Type 2 diabetes mellitus with foot ulcer (principal); E11.52 Type 2 diabetes mellitus with diabetic peripheral angiopathy with gangrene; E11.42 Type 2 diabetes mellitus with diabetic polyneuropathy; I70.262 Atherosclerosis of native arteries of extremities with gangrene, left leg; I87.332 Chronic venous hypertension (idiopathic) with ulcer and inflammation of left lower extremity; L97.512 Non-pressure chronic ulcer of other part of right foot with fat layer exposed; L97.222 Non-pressure chronic ulcer of left calf with fat layer exposed | CPT/HCPCS: 11042; G0463 ==

== ENCOUNTER → 2020-09-01 | Outpatient (CLI) | payer SELFPAY | LOC: WOUNDCARE 14:59 | PROVIDERS: ATTEND Surgery | DX: E11.621 Type 2 diabetes mellitus with foot ulcer (principal); E11.42 Type 2 diabetes mellitus with diabetic polyneuropathy; L97.512 Non-pressure chronic ulcer of other part of right foot with fat layer exposed; I70.242 Atherosclerosis of native arteries of left leg with ulceration of calf; I87.332 Chronic venous hypertension (idiopathic) with ulcer and inflammation of left lower extremity; L97.222 Non-pressure chronic ulcer of left calf with fat layer exposed; E11.52 Type 2 diabetes mellitus with diabetic peripheral angiopathy with gangrene | CPT/HCPCS: 11042; G0463 ==

== ENCOUNTER → 2020-09-08 | Outpatient (CLI) | payer SELFPAY | LOC: WOUNDCARE 14:53 | PROVIDERS: ATTEND Orthopaedic Surgery Hand Surgery | DX: E11.621 Type 2 diabetes mellitus with foot ulcer (principal); E11.42 Type 2 diabetes mellitus with diabetic polyneuropathy; I96 Gangrene, not elsewhere classified; I70.242 Atherosclerosis of native arteries of left leg with ulceration of calf; L97.512 Non-pressure chronic ulcer of other part of right foot with fat layer exposed; L97.222 Non-pressure chronic ulcer of left calf with fat layer exposed; I87.332 Chronic venous hypertension (idiopathic) with ulcer and inflammation of left lower extremity | CPT/HCPCS: 11042; 97597; G0463 ==

== ENCOUNTER → 2020-09-15 | Outpatient (CLI) | payer SELFPAY | LOC: WOUNDCARE 14:58 | PROVIDERS: ATTEND Surgery | DX: E11.621 Type 2 diabetes mellitus with foot ulcer (principal); E11.42 Type 2 diabetes mellitus with diabetic polyneuropathy; L97.512 Non-pressure chronic ulcer of other part of right foot with fat layer exposed; I70.242 Atherosclerosis of native arteries of left leg with ulceration of calf; I87.332 Chronic venous hypertension (idiopathic) with ulcer and inflammation of left lower extremity; L97.222 Non-pressure chronic ulcer of left calf with fat layer exposed; E11.52 Type 2 diabetes mellitus with diabetic peripheral angiopathy with gangrene | CPT/HCPCS: 11042; G0463 ==

== ENCOUNTER → 2020-09-22 | Outpatient (CLI) | payer SELFPAY | LOC: WOUNDCARE 15:05 | PROVIDERS: ATTEND Orthopaedic Surgery Hand Surgery | DX: E11.621 Type 2 diabetes mellitus with foot ulcer (principal); E11.42 Type 2 diabetes mellitus with diabetic polyneuropathy; I96 Gangrene, not elsewhere classified; I87.332 Chronic venous hypertension (idiopathic) with ulcer and inflammation of left lower extremity; L97.512 Non-pressure chronic ulcer of other part of right foot with fat layer exposed; I70.242 Atherosclerosis of native arteries of left leg with ulceration of calf; L97.222 Non-pressure chronic ulcer of left calf with fat layer exposed | CPT/HCPCS: 11042; G0463 ==

== ENCOUNTER → 2020-09-28 | Outpatient (CLI) | payer SELFPAY | LOC: WOUNDCARE 15:37 | PROVIDERS: ATTEND Surgery | DX: E11.621 Type 2 diabetes mellitus with foot ulcer (principal); E11.42 Type 2 diabetes mellitus with diabetic polyneuropathy; L97.512 Non-pressure chronic ulcer of other part of right foot with fat layer exposed; I70.242 Atherosclerosis of native arteries of left leg with ulceration of calf; I87.332 Chronic venous hypertension (idiopathic) with ulcer and inflammation of left lower extremity; L97.222 Non-pressure chronic ulcer of left calf with fat layer exposed | CPT/HCPCS: 99212 ==

== ENCOUNTER → 2020-10-26 | Outpatient (CLI) | payer OTHER | LOC: WOUNDCARE 13:32 | PROVIDERS: ATTEND Surgery | DX: I96 Gangrene, not elsewhere classified (principal); L97.522 Non-pressure chronic ulcer of other part of left foot with fat layer exposed; E11.621 Type 2 diabetes mellitus with foot ulcer; E11.42 Type 2 diabetes mellitus with diabetic polyneuropathy; L97.512 Non-pressure chronic ulcer of other part of right foot with fat layer exposed; I70.245 Atherosclerosis of native arteries of left leg with ulceration of other part of foot; I87.322 Chronic venous hypertension (idiopathic) with inflammation of left lower extremity | CPT/HCPCS: 11042; A6197; G0463 ==

== ENCOUNTER → 2020-11-03 | Outpatient (CLI) | payer SELFPAY | LOC: WOUNDCARE 15:00 | PROVIDERS: ATTEND Orthopaedic Surgery Hand Surgery | DX: E11.52 Type 2 diabetes mellitus with diabetic peripheral angiopathy with gangrene (principal); E11.621 Type 2 diabetes mellitus with foot ulcer; E11.42 Type 2 diabetes mellitus with diabetic polyneuropathy; I70.262 Atherosclerosis of native arteries of extremities with gangrene, left leg; L97.522 Non-pressure chronic ulcer of other part of left foot with fat layer exposed; L97.512 Non-pressure chronic ulcer of other part of right foot with fat layer exposed; I87.332 Chronic venous hypertension (idiopathic) with ulcer and inflammation of left lower extremity | CPT/HCPCS: 11042; G0463 ==

== ENCOUNTER → 2020-11-10 | Outpatient (CLI) | payer OTHER | LOC: WOUNDCARE 15:00 | PROVIDERS: ATTEND Surgery | DX: L97.522 Non-pressure chronic ulcer of other part of left foot with fat layer exposed (principal); E11.621 Type 2 diabetes mellitus with foot ulcer; E11.42 Type 2 diabetes mellitus with diabetic polyneuropathy; L97.512 Non-pressure chronic ulcer of other part of right foot with fat layer exposed; I70.245 Atherosclerosis of native arteries of left leg with ulceration of other part of foot; I87.322 Chronic venous hypertension (idiopathic) with inflammation of left lower extremity; E11.52 Type 2 diabetes mellitus with diabetic peripheral angiopathy with gangrene | CPT/HCPCS: 11042; G0463 ==

== ENCOUNTER → 2020-11-17 | Outpatient (CLI) | payer OTHER ==
[~2020-11-17] MED LIST changes: +ACHD5005 PO; +LINE600T12 PO
== END ==
LOC: WOUNDCARE 15:11
PROVIDERS: ATTEND Surgery
DX: L97.522 Non-pressure chronic ulcer of other part of left foot with fat layer exposed (principal); E11.621 Type 2 diabetes mellitus with foot ulcer; E11.42 Type 2 diabetes mellitus with diabetic polyneuropathy; L97.512 Non-pressure chronic ulcer of other part of right foot with fat layer exposed; I70.235 Atherosclerosis of native arteries of right leg with ulceration of other part of foot; I87.322 Chronic venous hypertension (idiopathic) with inflammation of left lower extremity; E11.52 Type 2 diabetes mellitus with diabetic peripheral angiopathy with gangrene
CPT/HCPCS: 11042; G0463

== ENCOUNTER 2020-11-21 14:36 | Inpatient (IN) | payer OTHER ==
[~2020-11-21] VITALS: Ht 187.9 cm; Wt 129.2 kg
[~2020-11-21 14:36] MED LIST changes: -ACHD5005 PO; -LINE600T12 PO
[2020-11-21] MEDS ORDERED: ACETAMINOPHEN 500 MG TAB (TYLENOL) PO STA (14:38)
--- NOTE | 2020-11-21 14:38 | ED Fever ---
History of Present Illness General Stated Complaint: LT FOOT INFECTION Source: patient History of Present Illness Date Seen by Provider: November 21, 2020 Time Seen by Provider: 14:42 Initial Comments 65-year-old male presents with known diabetic foot ulcer on his left foot. Patient reports that 2 days ago he started running a fever. Has increased drainage of the ulcer. Has increasing erythema of the lower left foot. Patient presented to his primary care office where he was found to have a 104.5 fever tachycardic in the 140s. Patient was sent here to the ER for further evaluation with concerns of early sepsis. Patient denies any nausea or vomiting. He has no cough or other infectious symptoms. Allergies and Home Medications Allergies Coded Allergies: Penicillins (Verified Allergy, Unknown, 08/02/20) Home Medications Allopurinol 300 Mg Tablet, 300 MG PO DAILY, (Reported) Aspirin 325 Mg Tablet.dr, 325-650 MG PO Q6H PRN for PAIN-MILD (1-4) OR TEMPATURE, (Reported) Atorvastatin Calcium 20 Mg Tablet, 20 MG PO DAILY, (Reported) Canagliflozin 100 Mg Tablet, 100 MG PO DAILY Prescribed by: DARIUSZ DUNCAN on 08/10/20 1226 Cefdinir 300 Mg Capsule, 300 MG PO BID Prescribed by: DARIUSZ DUNCAN on 08/10/20 1226 Lisinopril/Hydrochlorothiazide 1 Each Tablet, 1 EACH PO DAILY, (Reported) Metformin HCl 500 Mg Tablet, 500 MG PO BID Prescribed by: DARIUSZ DUNCAN on 08/10/20 1226 Metronidazole 500 Mg Tablet, 500 MG PO BID Prescribed by: DARIUSZ DUNCAN on 08/10/20 1226 Patient Home Medication List Home Medication List Reviewed: Yes Review of Systems Review of Systems Constitutional: chills, fever Respiratory: No cough, No short of breath Cardiovascular: see HPI Gastrointestinal: No abdominal pain, No nausea, No vomiting Musculoskeletal: see HPI Skin: see HPI Psychiatric/Neurological: No Symptoms Reported Hematologic/Lymphatic: No Symptoms Reported Past Bhjsixj-Bcxoag-Hkhwri Hx Past Med/Social Hx: Reviewed Nursing Past Med/Soc Hx Physical Exam Vital Signs - First Documented 11/21/20 14:40 Temp 38.8 Pulse 144 Resp 22 B/P (MAP) 126/83 (97) Pulse Ox 93 Capillary Refill : Height: '" Weight: lbs. oz. kg; BMI Method: General Appearance: other (Febrile) HEENT: normal ENT inspection, TMs normal Respiratory: lungs clear, normal breath sounds Cardiovascular: normal peripheral pulses, tachycardia Gastrointestinal: non tender, soft Extremities: non-tender, normal inspection Neurologic/Psychiatric: alert, normal mood/affect, oriented x 3 Skin: other (Skin ulceration on the plantar aspect of the left foot near the great toe with surrounding erythema and erythema on that dorsal aspect of the great toe) Focused Exam Lactate Level 11/21/20 14:56: Lactic Acid Level 1.88 Lactic Acid Level Laboratory Tests Test 11/21/20 14:56 Lactic Acid Level 1.88 MMOL/L (0.50-2.00) Progress/Results/Core Measures Suspected Sepsis SIRS Temperature: Pulse: Respiratory Rate: Laboratory Tests 11/21/20 14:56: White Blood Count 15.4H Blood Pressure / Mean: 11/21/20 14:56: Lactic Acid Level 1.88 Laboratory Tests 11/21/20 14:56: Creatinine 1.72H, INR Comment 1.0, Platelet Count 222, Total Bilirubin 1.8H Results/Orders Lab Results Laboratory Tests Test 11/21/20 14:56 Range/Units White Blood Count 15.4 H 4.3-11.0 10^3/uL Red Blood Count 4.96 4.35-5.85 10^6/uL Hemoglobin 14.4 13.3-17.7 G/DL Hematocrit 43 40-54 % Mean Corpuscular Volume 85 80-99 FL Mean Corpuscular Hemoglobin 29 25-34 PG Mean Corpuscular Hemoglobin Concent 34 32-36 G/DL Red Cell Distribution Width 13.6 10.0-14.5 % Platelet Count 222 130-400 10^3/uL Mean Platelet Volume 9.4 7.4-10.4 FL Immature Granulocyte % (Auto) 1 % Neutrophils (%) (Auto) 79 H 42-75 % Lymphocytes (%) (Auto) 6 L 12-44 % Monocytes (%) (Auto) 13 H 0-12 % Eosinophils (%) (Auto) 1 0-10 % Basophils (%) (Auto) 0 0-10 % Neutrophils # (Auto) 12.2 H 1.8-7.8 X 10^3 Lymphocytes # (Auto) 1.0 1.0-4.0 X 10^3 Monocytes # (Auto) 2.0 H 0.0-1.0 X 10^3 Eosinophils # (Auto) 0.1 0.0-0.3 10^3/uL Basophils # (Auto) 0.1 0.0-0.1 10^3/uL Immature Granulocyte # (Auto) 0.1 0.0-0.1 10^3/uL Neutrophils % (Manual) 81 % Lymphocytes % (Manual) 10 % Monocytes % (Manual) 4 % Eosinophils % (Manual) 2 % Basophils % (Manual) 0 % Band Neutrophils 3 % Prothrombin Time 13.6 12.2-14.7 SEC INR Comment 1.0 0.8-1.4 Activated Partial Thromboplast Time 24 24-35 SEC Sodium Level 135 135-145 MMOL/L Potassium Level 4.0 3.6-5.0 MMOL/L Chloride Level 101 98-107 MMOL/L Carbon Dioxide Level 19 L 21-32 MMOL/L Anion Gap 15 H 5-14 MMOL/L Blood Urea Nitrogen 30 H 7-18 MG/DL Creatinine 1.72 H 0.60-1.30 MG/DL Estimat Glomerular Filtration Rate 40 BUN/Creatinine Ratio 17 Glucose Level 201 H 70-105 MG/DL Lactic Acid Level 1.88 0.50-2.00 MMOL/L Calcium Level 9.7 8.5-10.1 MG/DL Corrected Calcium 9.6 8.5-10.1 MG/DL Total Bilirubin 1.8 H 0.1-1.0 MG/DL Aspartate Amino Transf (AST/SGOT) 15 5-34 U/L Alanine Aminotransferase (ALT/SGPT) 18 0-55 U/L Alkaline Phosphatase 76 40-136 U/L Total Protein 8.0 6.4-8.2 GM/DL Albumin 4.1 3.2-4.5 GM/DL My Orders Orders - MCCOLLUM,ALIREZA L DO Cbc With Automated Diff (11/21/20 14:38) Comprehensive Metabolic Panel (11/21/20 14:38) Blood Culture (11/21/20 14:38) Urinalysis (11/21/20 14:38) Urine Culture (11/21/20 14:38) Protime With Inr (11/21/20 14:38) Partial Thromboplastin Time (11/21/20 14:38) Chest 1 View Ap/Pa Only (11/21/20 14:38) Ed Iv/Invasive Line Start (11/21/20 14:38) Vital Signs Adult Sepsis Patie Q15M (11/21/20 14:38) Remove Rings In Anticipation O (11/21/20 14:38) Wound Culture (11/21/20 14:38) Lactic Acid Analyzer (11/21/20 14:38) Lactated Ringers (Lr 1000 Ml Iv Solution (11/21/20 14:45) Metronidazole 500mg/100ml Ivpb (Flagyl 5 (11/21/20 14:45) Cefepime Injection (Maxipime Injection) (11/21/20 14:45) Vancomycin Injection (Vancomycin Injecti (11/21/20 14:45) Acetaminophen Tablet (Tylenol Tablet) (11/21/20 14:38) Manual Differential (11/21/20 14:56) Ibuprofen Tablet (Motrin Tablet) (11/21/20 15:38) Medications Given in ED Current Medications Medications Dose Ordered Sig/Erich Route Start Time Stop Time Status Last Admin Dose Admin Cefepime HCl 1000 mg/Sterile Water 10 ml @ 200 mls/hr ONCE ONCE IV 11/21/20 14:45 11/21/20 14:47 DC 11/21/20 15:34 200 MLS/HR Lactated Ringer's 1,000 ml @ 0 mls/hr Q0M ONCE IV 11/21/20 14:45 11/21/20 14:46 DC 11/21/20 15:03 999 MLS/HR Metronidazole 100 ml @ 100 mls/hr ONCE ONCE IV 11/21/20 14:45 11/21/20 15:44 DC 11/21/20 15:34 100 MLS/HR Vital Signs/I&O 11/21/20 11/21/20 14:40 15:39 Temp 38.8 39.6 Pulse 144 Resp 22 B/P (MAP) 126/83 (97) Pulse Ox 93 Capillary Refill : Departure Communication (Admissions) Time/Spoke to Admitting Phy: 16:15 Okay to admit, will admit telemetry. Impression Primary Impression: Cellulitis of left foot Additional Impression: Diabetic ulcer of left foot Qualified Codes: E13.621 - Other specified diabetes mellitus with foot ulcer; L97.429 - Non-pressure chronic ulcer of left heel and midfoot with unspecified severity Disposition: 30 STILL A PATIENT Condition: Stable Admissions Decision to Admit Reason: Admit from ER (General) Decision to Admit/Date: November 21, 2020 Time/Decision to Admit Time: 16:15 ALIREZA MCCOLLUM DO November 21, 2020 14:38
[2020-11-21] MEDS ORDERED: CEFEPIME INJECTION 1,000 MG in WATER (STERILE) FOR INJECTION 10 ML IV ONE (14:45)
[2020-11-21] MEDS ORDERED: metroNIDAZOLE 500MG/100ML IVPB 100 ML IV ONE (14:45)
[2020-11-21] MEDS ORDERED: LACTATED RINGERS 1,000 ML IV ONE (14:45)
[2020-11-21] MEDS ORDERED: VANCOMYCIN INJECTION 1,000 MG in NS (IVPB) 250 ML IV ONE (14:45)
[2020-11-21 15:12] LABS: HEMATOCRIT 43 % (40-54); HEMOGLOBIN 14.4 G/DL (13.3-17.7); MEAN CORPUSCULAR HEMOGLOBIN 29 PG (25-34); MEAN CORPUSCULAR HGB CONC 34 G/DL (32-36); MEAN CORPUSCULAR VOLUME 85 FL (80-99); WHITE BLOOD COUNT 15.4 10^3/uL (4.3-11.0)
[2020-11-21 15:13] LABS: BASOPHILS # (AUTO) 0.1 10^3/uL (0.0-0.1); BASOPHILS % (AUTO) 0 % (0-10); EOSINOPHILS # (AUTO) 0.1 10^3/uL (0.0-0.3); EOSINOPHILS % (AUTO) 1 % (0-10); LYMPHOCYTES % (AUTO) 6 % (12-44); MEAN PLATELET VOLUME 9.4 FL (7.4-10.4); MONOCYTES % (AUTO) 13 % (0-12); NEUTROPHILS # (AUTO) 12.2 X 10^3 (1.8-7.8); NEUTROPHILS % (AUTO) 79 % (42-75); PLATELET COUNT 222 10^3/uL (130-400)
[2020-11-21 15:18] LABS: PROTHROMBIN TIME PATIENT 13.6 SEC (12.2-14.7)
[2020-11-21 15:26] LABS: BAND NEUTROPHILS 3 %; BASOPHILS % (MANUAL) 0 %; EOSINOPHILS % (MANUAL) 2 %; LYMPHOCYTES % (MANUAL) 10 %; MONOCYTES % (MANUAL) 4 %; NEUTROPHILS % (MANUAL) 81 %
[2020-11-21 15:28] LABS: ALBUMIN 4.1 GM/DL (3.2-4.5); BILIRUBIN,TOTAL 1.8 MG/DL (0.1-1.0); CALCIUM 9.7 MG/DL (8.5-10.1); CREATININE SERUM 1.72 MG/DL (0.60-1.30)
[2020-11-21] MEDS ORDERED: IBUPROFEN TABLET 200 MG TAB PO STA (15:38)
--- NOTE | 2020-11-21 15:38 | Diagnostic Imaging Report ---
INDICATION: sepsis COMPARISON: 08/03/2020. FINDINGS: Single frontal view of the chest demonstrates normal heart size and pulmonary vascularity. The lungs are well aerated and clear. No large pleural effusion or pneumothorax is seen. The visualized osseous structures show no acute abnormalities. IMPRESSION: 1. No acute cardiopulmonary process. Dictated by: Dictated on workstation # [id number]
[2020-11-21] MEDS ORDERED: LACTATED RINGERS 1,000 ML IV SCH ×2 (20:00)
[2020-11-21] MEDS: NS IV 1000 ML 1,000 ML IV SCH (20:29)
[2020-11-21] MEDS ORDERED: IBUPROFEN TABLET 200 MG TAB PO PRN (21:00)
[2020-11-21] MEDS ORDERED: VANCOMYCIN INJECTION 2,500 MG in NS IV 500 ML 500 ML IV NR (21:00)
[2020-11-22] MEDS ORDERED: CEFEPIME 2,000 MG/SWFI 20 ML IV PUSH IV SCH ×2 (03:00)
[2020-11-22 03:58] LABS: BASOPHILS # (AUTO) 0.1 10^3/uL (0.0-0.1); BASOPHILS % (AUTO) 1 % (0-10); EOSINOPHILS # (AUTO) 0.1 10^3/uL (0.0-0.3); EOSINOPHILS % (AUTO) 1 % (0-10); HEMATOCRIT 39 % (40-54); HEMOGLOBIN 12.8 g/dL (13.3-17.7); LYMPHOCYTES # (AUTO) 0.6 10^3/uL (1.0-4.0); LYMPHOCYTES % (AUTO) 6 % (12-44); MEAN CORPUSCULAR HEMOGLOBIN 29 pg (25-34); MEAN CORPUSCULAR HGB CONC 33 g/dL (32-36); MEAN CORPUSCULAR VOLUME 88 fL (80-99); MEAN PLATELET VOLUME 9.6 fL (9.0-12.2); MONOCYTES # (AUTO) 1.4 10^3/uL (0.0-1.0); MONOCYTES % (AUTO) 12 % (0-12); NEUTROPHILS # (AUTO) 9.2 10^3/uL (1.8-7.8); NEUTROPHILS % (AUTO) 80 % (42-75); PLATELET COUNT 180 10^3/uL (130-400); WHITE BLOOD COUNT 11.5 10^3/uL (4.3-11.0)
[2020-11-22 04:22] LABS: ALBUMIN 3.5 GM/DL (3.2-4.5); BILIRUBIN,TOTAL 1.6 MG/DL (0.1-1.0); CALCIUM 8.6 MG/DL (8.5-10.1); CREATININE SERUM 1.75 MG/DL (0.60-1.30); POTASSIUM 3.4 MMOL/L (3.6-5.0); TOTAL PROTEIN 6.9 GM/DL (6.4-8.2)
[2020-11-22] MEDS: NS IV 1000 ML 1,000 ML IV SCH ×2 (06:20→08:36)
--- NOTE | 2020-11-22 08:43 | History & Physical-Hospitalist ---
History of Present Illness HPI/Chief Complaint CC: Left foot ulcer HPI: This is a 65yoWM clinic pt of [facility] and Dr. Hearn who presented with tachycardia and fever with a draining diabetic ulcer on his left foot to the ER found to have sepsis placed on Cefepime, Vanc, IV fluids and placed him in cardiac step down. Dr. Hearn has been consulted and pt will need a debridement of the abscess by Dr. Jimenes. MRI will be contained to confirm that suspicion. Source: patient Exam Limitations: no limitations Date Seen 11/22/20 Time Seen by a Provider: 09:30 Attending Physician Sherrell Reynoso DO PCP Nik Avina MD Referring Physician Date of Admission November 21, 2020 at 19:40 Home Medications & Allergies Home Medications Reviewed patient Home Medication Reconciliation performed by pharmacy medication reconciliations lead technician and/or nursing. Patients Allergies have been reviewed. Allergies Allergies Coded Allergies Penicillins (Verified Allergy, Unknown, 08/02/20) Patient Social History Marrital Status: single Employed/Student: unemployed Tobacco Use?: No Smoking Status: Never a Smoker Use of E-Cig and/or Vaping dev: No Substance use?: No Alcohol Use?: No Pt stated abuse/neglect: No Immunizations Up To Date Influenza Vaccine Up-to-Date: No; Not Current Second COVID19 Vaccination Eliceo: NOVEMBER 01, 2020 Current Status Do you have an Advance Directi: No Communicates: Verbally Primary Language: Belarusian Preferred Spoken Language: Belarusian Is interpretation needed?: No Past Medical History DM HTN Gout CRI Review of Systems Constitutional: see HPI Musculoskeletal: joint pain Physical Exam Physical Exam Vital Signs Vital Signs - First Documented 11/21/20 11/21/20 14:40 19:55 Temp 38.8 Pulse 144 Resp 22 B/P (MAP) 126/83 (97) Pulse Ox 93 O2 Delivery Room Air Capillary Refill : Less Than 3 Seconds Height, Weight, BMI Height: '" Weight: lbs. oz. kg; 33.76 BMI Method: General Appearance: No Apparent Distress, Chronically ill, Obese Respiratory: Lungs Clear, Normal Breath Sounds Cardiovascular: Regular Rate, Rhythm Neurologic/Psychiatric: Alert, Oriented x3 Results Results/Procedures Labs Laboratory Tests 11/21/20 14:56 11/22/20 03:19 Patient resulted labs reviewed. Assessment/Plan Admission Diagnosis Assessment: Sepsis Left DM foot ulcer DM Non-compliance Gout Plan: IV abx Monitor closely Admission Status: Inpatient Order (span 2 midnights) Reason for Inpatient Admission: cellulitis with sepsis SHERRELL REYNOSO DO November 22, 2020 08:43
--- NOTE | 2020-11-22 09:15 | Consultation - Surgery ---
History of Present Illness History of Present Illness Patient Consulted On(albin/time) 11/22/20 09:10 Time Seen by Provider: 08:34 History of Present Illness Surgery asked to consult regarding worsening wound on left foot. HPI per ED: 65-year-old male presents with known diabetic foot ulcer on his left foot. Patient reports that 2 days ago he started running a fever. Has increased drainage of the ulcer. Has increasing erythema of the lower left foot. Patient presented to his primary care office where he was found to have a 104.5 fever tachycardic in the 140s. Patient was sent here to the ER for further evaluation with concerns of early sepsis. Patient denies any nausea or vomiting. He has no cough or other infectious symptoms. When I spoke to pt he stated he has been seeing wound care for about a month. "My foot swole up and got red and I was on oral antibiotics for a few weeks". He stated he didn't think he was doing that bad yesterday. This am he is sitting in the chair in no distress and appears very comfortable. He denies pain in his foot. Allergies and Home Medications Allergies Coded Allergies: Penicillins (Verified Allergy, Unknown, 08/02/20) Home Medications Allopurinol 300 Mg Tablet, 300 MG PO DAILY, (Reported) Aspirin 325 Mg Tablet.dr, 325-650 MG PO Q6H PRN for PAIN-MILD (1-4) OR TEMPATURE, (Reported) Atorvastatin Calcium 20 Mg Tablet, 20 MG PO DAILY, (Reported) Canagliflozin 100 Mg Tablet, 100 MG PO DAILY Prescribed by: DARIUSZ DUNCAN on 08/10/20 1226 Cefdinir 300 Mg Capsule, 300 MG PO BID Prescribed by: DARIUSZ DUNCAN on 08/10/20 1226 Lisinopril/Hydrochlorothiazide 1 Each Tablet, 1 EACH PO DAILY, (Reported) Metformin HCl 500 Mg Tablet, 500 MG PO BID Prescribed by: DARIUSZ DUNCAN on 08/10/20 1226 Metronidazole 500 Mg Tablet, 500 MG PO BID Prescribed by: DARIUSZ DUNCAN on 08/10/20 1226 Patient Home Medication List Home Medication List Reviewed: Yes Past Bajxaus-Xfpzoo-Luxrsq Hx Patient Social History Smoking Status: Never a Smoker 2nd Hand Smoke Exposure: No Recent Hopitalizations: No Alcohol Use?: No Have you traveled recently?: No Seasonal Allergies Seasonal Allergies: No Surgeries History of Surgeries: Yes (wound debridement, hernia repair) Respiratory History of Respiratory Disorde: No Cardiovascular History of Cardiac Disorders: Yes Cardiac Disorders: High Cholesterol, Hypertension Neurological History of Neurological Disord: No Genitourinary History of Genitourinary Disor: No Gastrointestinal History of Gastrointestinal Di: No Musculoskeletal History of Musculoskeletal Dis: No Musculoskeletal Disorders: Gout Endocrine History of Endocrine Disorders: Yes Endocrine Disorders: Diabetes, Non-Insulin dep HEENT History of HEENT Disorders: No Cancer History of Cancer: No Psychosocial History of Psychiatric Problem: No Integumentary History of Skin or Integumenta: No Family Medical History Significant Family History: Cancer (Father had throat CA), Psychiatric Problems (Mother) Review of Systems-General Constitutional: No malaise, No weakness EENTM: No blurred vision, No mouth pain, No mouth swelling, No epistaxis Respiratory: No cough, No dyspnea on exertion Cardiovascular: No chest pain; palpitations Gastrointestinal: No abdominal pain, No jaundice, No nausea, No vomiting Genitourinary: No dysuria, No frequency Musculoskeletal: joint pain, joint swelling, muscle stiffness, muscle cramps Skin: No change in color, No change in hair/nails Psychiatric/Neurological: Denies Anxiety, Denies Depressed; Numbness; Denies Seizure Physical Exam-General Problems Physical Exam Vital Signs Vital Signs - First Documented 11/21/20 11/21/20 14:40 19:55 Temp 38.8 Pulse 144 Resp 22 B/P (MAP) 126/83 (97) Pulse Ox 93 O2 Delivery Room Air Capillary Refill : Less Than 3 Seconds General Appearance: WD/WN, no apparent distress Eyes: Bilateral Eye PERRL, Bilateral Eye EOMI HEENT: pharynx normal; No scleral icterus (R), No scleral icterus (L) Neck: non-tender, supple Respiratory: chest non-tender, lungs clear, normal breath sounds, no respiratory distress, no accessory muscle use Cardiovascular: regular rate, rhythm, no murmur Gastrointestinal: non tender, soft, no organomegaly, no pulsatile mass Extremities: no calf tenderness, other (Pt has bilateral venous stasis changes, lower legs are red. Left foot under 1st toe is a 4-5mm opening that expresses some purulent looking fluid. No necrotic tissue seen. 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, alert, oriented x 3 Skin: normal color, warm/dry Lymphatic: no adenopathy (neck, axilla or groin) Data Review Labs Laboratory Tests 11/21/20 14:56: White Blood Count 15.4H, Red Blood Count 4.96, Hemoglobin 14.4, Hematocrit 43, Mean Corpuscular Volume 85, Mean Corpuscular Hemoglobin 29, Mean Corpuscular Hemoglobin Concent 34, Red Cell Distribution Width 13.6, Platelet Count 222, Mean Platelet Volume 9.4, Immature Granulocyte % (Auto) 1, Neutrophils (%) (Auto) 79H, Lymphocytes (%) (Auto) 6L, Monocytes (%) (Auto) 13H, Eosinophils (%) (Auto) 1, Basophils (%) (Auto) 0, Neutrophils # (Auto) 12.2H, Lymphocytes # (Auto) 1.0, Monocytes # (Auto) 2.0H, Eosinophils # (Auto) 0.1, Basophils # (Auto) 0.1, Immature Granulocyte # (Auto) 0.1, Neutrophils % (Manual) 81, Lymphocytes % (Manual) 10, Monocytes % (Manual) 4, Eosinophils % (Manual) 2, Basophils % (Manual) 0, Band Neutrophils 3, Prothrombin Time 13.6, INR Comment 1.0, Activated Partial Thromboplast Time 24, Sodium Level 135, Potassium Level 4.0, Chloride Level 101, Carbon Dioxide Level 19L, Anion Gap 15H, Blood Urea Nitrogen 30H, Creatinine 1.72H, Estimat Glomerular Filtration Rate 40, BUN/Creatinine Ratio 17, Glucose Level 201H, Lactic Acid Level 1.88, Calcium Level 9.7, Corrected Calcium 9.6, Total Bilirubin 1.8H, Aspartate Amino Transf (AST/SGOT) 15, Alanine Aminotransferase (ALT/SGPT) 18, Alkaline Phosphatase 76, Total Protein 8.0, Albumin 4.1 11/22/20 03:19: White Blood Count 11.5H, Red Blood Count 4.37, Hemoglobin 12.8L, Hematocrit 39L, Mean Corpuscular Volume 88, Mean Corpuscular Hemoglobin 29, Mean Corpuscular Hemoglobin Concent 33, Red Cell Distribution Width 13.6, Platelet Count 180, Mean Platelet Volume 9.6, Immature Granulocyte % (Auto) 1, Neutrophils (%) (Auto) 80H, Lymphocytes (%) (Auto) 6L, Monocytes (%) (Auto) 12, Eosinophils (%) (Auto) 1, Basophils (%) (Auto) 1, Neutrophils # (Auto) 9.2H, Lymphocytes # (Auto) 0.6L, Monocytes # (Auto) 1.4H, Eosinophils # (Auto) 0.1, Basophils # (Auto) 0.1, Immature Granulocyte # (Auto) 0.1, Sodium Level 135, Potassium Level 3.4L, Chloride Level 105, Carbon Dioxide Level 19L, Anion Gap 11, Blood Urea Nitrogen 26H, Creatinine 1.75H, Estimat Glomerular Filtration Rate 40, BUN/Creatinine Ratio 15, Glucose Level 179H, Calcium Level 8.6, Corrected Calcium 9.0, Total Bilirubin 1.6H, Aspartate Amino Transf (AST/SGOT) 16, Alanine Aminotransferase (ALT/SGPT) 22, Alkaline Phosphatase 60, Total Protein 6.9, Albumin 3.5 Assessment/Plan Assessment/Plan Assessment/Plan Left Foot Wound - R/O Osteomyelitis R/O sepsis - pt appears stable, no fever and not tachycardic anymore Chronic Venous stasis changes - B/L legs DM - uncontrolled Pt is seeing wound care already, will have them come evaluate again. Will order Left foot x-ray to rule out Osteomyelitis. He may need debridement of the area in the OR. Monitor labs and control DM. Can use telfa and kerlix for now on his foot. Continue current care on right foot as well. ALONDRA RAMESH DO November 22, 2020 09:15
--- NOTE | 2020-11-22 09:44 | Diagnostic Imaging Report ---
INDICATION: Infection, rule out osteomyelitis. TECHNIQUE: Three views of the left foot. CORRELATION STUDY: None. FINDINGS: There is extensive edema over the foot. Small gas collections are in the region of the 1st MTP joint. There does appear to be a somewhat small appearance about the distal phalanx of the great toe. There is a deformity with erosion and sclerosis about the distal 2nd metatarsal. Slight bone fragmentation. There is irregularity at the interphalanges of the 4th digit. The remaining osseous structures are otherwise unremarkable. Plantar calcaneal spurring. IMPRESSION: 1. Extensive edema with focal gas collection at the plantar base of the region of the great toe. 2. There is a small caliber appearance about the distal phalanx of the great toe. This is nonspecific and may be owing to perhaps chronic arterial insufficiency. This does not have a og erosive appearance but could also be attributed to underlying osteomyelitis. 3. Chronic appearing change about the distal shaft of the 2nd metatarsal. This may reflect chronic, underlying osteomyelitis or perhaps previous traumatic change. 4. Deformity about the phalanges of the 4th digit. Also, this favors a probable more remote process. 5. If further assessment of potential underlying osteomyelitis is desired, correlation with MRI of the foot is recommended. Dictated by: Dictated on workstation # [id number]
--- NOTE | 2020-11-22 09:47 | Wound Care Assessment ---
Wound Care Assessment Date Seen by Provider: November 22, 2020 Time Seen by Provider: 09:15 Chief Complaint Pain and swelling L foot. HPI the patient is a 65 year old male with sepsis related to abscess L medial foot, related to healing L 1st metatarsal head ulcer. His blood glucose levels have been good. Will order MRI to define extent of disease. Smoking Status: Never a Smoker Recreational Drug Use: No Alcohol Use: Denies Use Exam Vital Signs Date Time Temp Pulse Resp B/P (MAP) Pulse Ox O2 Delivery O2 Flow Rate FiO2 11/22/20 08:00 87 99/65 (76) 96 Room Air 11/22/20 07:45 36.0 11/22/20 06:00 14 Capillary Refill : Less Than 3 Seconds Results Laboratory Tests 11/21/20 14:56: White Blood Count 15.4H, Red Blood Count 4.96, Hemoglobin 14.4, Hematocrit 43, Mean Corpuscular Volume 85, Mean Corpuscular Hemoglobin 29, Mean Corpuscular Hemoglobin Concent 34, Red Cell Distribution Width 13.6, Platelet Count 222, Mean Platelet Volume 9.4, Immature Granulocyte % (Auto) 1, Neutrophils (%) (Auto) 79H, Lymphocytes (%) (Auto) 6L, Monocytes (%) (Auto) 13H, Eosinophils (%) (Auto) 1, Basophils (%) (Auto) 0, Neutrophils # (Auto) 12.2H, Lymphocytes # (Auto) 1.0, Monocytes # (Auto) 2.0H, Eosinophils # (Auto) 0.1, Basophils # (Auto) 0.1, Immature Granulocyte # (Auto) 0.1, Neutrophils % (Manual) 81, Lymphocytes % (Manual) 10, Monocytes % (Manual) 4, Eosinophils % (Manual) 2, Basophils % (Manual) 0, Band Neutrophils 3, Prothrombin Time 13.6, INR Comment 1.0, Activated Partial Thromboplast Time 24, Sodium Level 135, Potassium Level 4.0, Chloride Level 101, Carbon Dioxide Level 19L, Anion Gap 15H, Blood Urea Nitrogen 30H, Creatinine 1.72H, Estimat Glomerular Filtration Rate 40, BUN/Creatinine Ratio 17, Glucose Level 201H, Lactic Acid Level 1.88, Calcium Level 9.7, Corrected Calcium 9.6, Total Bilirubin 1.8H, Aspartate Amino Transf (AST/SGOT) 15, Alanine Aminotransferase (ALT/SGPT) 18, Alkaline Phosphatase 76, Total Protein 8.0, Albumin 4.1 11/22/20 03:19: White Blood Count 11.5H, Red Blood Count 4.37, Hemoglobin 12.8L, Hematocrit 39L, Mean Corpuscular Volume 88, Mean Corpuscular Hemoglobin 29, Mean Corpuscular Hemoglobin Concent 33, Red Cell Distribution Width 13.6, Platelet Count 180, Mean Platelet Volume 9.6, Immature Granulocyte % (Auto) 1, Neutrophils (%) (Auto) 80H, Lymphocytes (%) (Auto) 6L, Monocytes (%) (Auto) 12, Eosinophils (%) (Auto) 1, Basophils (%) (Auto) 1, Neutrophils # (Auto) 9.2H, Lymphocytes # (Auto) 0.6L, Monocytes # (Auto) 1.4H, Eosinophils # (Auto) 0.1, Basophils # (Auto) 0.1, Immature Granulocyte # (Auto) 0.1, Sodium Level 135, Potassium Level 3.4L, Chloride Level 105, Carbon Dioxide Level 19L, Anion Gap 11, Blood Urea Nitrogen 26H, Creatinine 1.75H, Estimat Glomerular Filtration Rate 40, BUN/Creatinine Ratio 15, Glucose Level 179H, Calcium Level 8.6, Corrected Calc ium 9.0, Total Bilirubin 1.6H, Aspartate Amino Transf (AST/SGOT) 16, Alanine Aminotransferase (ALT/SGPT) 22, Alkaline Phosphatase 60, Total Protein 6.9, Albumin 3.5 SLADE VILLA MD November 22, 2020 09:47
[2020-11-22] MEDS ORDERED: ONDANSETRON 4 MG (ZOFRAN) ORAL DISSOLVE TAB PO PRN (10:15)
[2020-11-22] MEDS ORDERED: diphenhydrAMINE 25 MG TAB (BENADRYL) PO PRN (10:15)
[2020-11-22] MEDS ORDERED: HYDROcodone/APAP 5 MG/325 MG (LORTAB) TAB PO PRN (10:15)
[2020-11-22] MEDS ORDERED: MELATONIN 3 MG TABLET PO PRN (10:15)
[2020-11-22] MEDS ORDERED: DOCUSATE SODIUM 100 MG (COLACE) CAP PO PRN (10:15)
[2020-11-22] MEDS ORDERED: ALPRAZolam 0.25 MG (XANAX) TAB PO PRN (10:15)
[2020-11-22] MEDS ORDERED: LOPERAMIDE 2 MG (IMODIUM) TABLET PO PRN (10:15)
[2020-11-22] MEDS ORDERED: CALCIUM CARBONATE 500 MG (TUMS) TAB.CHEW PO PRN (10:15)
[2020-11-22] MEDS ORDERED: METF-397 PO ×2 (10:29)
[2020-11-22] MEDS ORDERED: CANA100T PO (10:29)
[2020-11-22] MEDS ORDERED: ACETAMINOPHEN 325 MG TABLET PO PRN (10:45)
[2020-11-22] MEDS: inSUlin ASPART (NovoLOG) 1 UNIT/0.01 ML (CHARGE PER UNIT) SC SCH ×3 (10:59→20:08)
[2020-11-22] MEDS: ENOXAPARIN 40 MG/0.4 ML (LOVENOX) SYR SC SCH (11:08)
--- NOTE | 2020-11-22 12:39 | Diagnostic Imaging Report ---
PROCEDURE: MR imaging left lower extremity without contrast. TECHNIQUE: Multiplanar, multisequence non contrast enhanced MR imaging of the left lower extremity was accomplished. INDICATION: Abscess 1st metatarsal head. There are no prior MRI examinations available for comparison. FINDINGS: The plain film examination of the left foot performed on 11/22/2020 did note extensive edema with small focal gas collections along the plantar aspect of the 1st metatarsophalangeal joint. There is no bony destruction to suggest osteomyelitis but MRI was recommended for further evaluation. On this exam, there is again evidence of edema/inflammation along the medial aspect of the 1st metatarsophalangeal joint and the plantar aspect of the joint. A few droplets of gas are again seen in the soft tissues along the medial aspect of the 1st metatarsophalangeal joint. However, there is no abnormal signal arising from the osseous structures to indicate osteomyelitis. The signal in the sesamoid bone along the plantar aspect of the head of the 1st metatarsal is somewhat different from the other osseous structures. However I am not convinced that there is osteomyelitis of the sesamoid bone. There does seem to be a small to moderate joint effusion of the 1st metatarsophalangeal joint, however. The possibility of septic arthritis should be considered. There is deformity of the head of the 2nd metatarsal. This finding was also present on the plain film exam and is felt to be long-standing in nature. There is no other abnormal signal arising from the osseous structures to suggest an acute abnormality. There is no soft tissue abscess identified either. IMPRESSION: 1. There is extensive edema/inflammation of the soft tissues along the plantar aspect of the 1st ray in the region of the 1st metatarsophalangeal joint. There is also a small to moderate joint effusion of the 1st metatarsophalangeal joint and the possibility of septic arthritis should be considered.. However, there is no abnormal signal in the osseous structures to indicate osteomyelitis. 2. There is no acute abnormality noted otherwise. 3. There are chronic changes involving the head of the 2nd metatarsal. 4. These results were discussed with Dr. Hearn. Dictated by: Dictated on workstation # [id number]
[2020-11-22 14:02] VITALS: BP 134/71
[2020-11-22] MEDS: CEFEPIME 2,000 MG/SWFI 20 ML IV PUSH IV SCH ×2 (15:50)
[2020-11-22 16:05] VITALS: BP 131/72
[2020-11-22 19:49] VITALS: BP 133/79
[2020-11-22] MEDS: SENNA W/DOCUSATE (SENOKOT S) TABLET PO SCH (20:40)
[2020-11-22] MEDS: VANCOMYCIN 2000 MG/NS 500 ML IVPB IV SCH ×2 (20:40)
[2020-11-22] MEDS ORDERED: ASPIRIN E.C. 325 MG (ECOTRIN) TABLET PO PRN (21:00)
[2020-11-22 23:20] VITALS: BP 127/62
[2020-11-23] MEDS: NS IV 1000 ML 1,000 ML IV SCH ×3 (00:23→23:06)
[2020-11-23 03:51] VITALS: BP 119/59
[2020-11-23] MEDS: CEFEPIME 2,000 MG/SWFI 20 ML IV PUSH IV SCH ×4 (03:53→15:35)
[2020-11-23] MEDS: inSUlin ASPART (NovoLOG) 1 UNIT/0.01 ML (CHARGE PER UNIT) SC SCH ×4 (05:47→20:01)
--- NOTE | 2020-11-23 06:05 | Progress Note - Hospitalist ---
Subjective HPI/CC On Admission Date Seen by Provider: November 23, 2020 Time Seen by Provider: 09:30 CC: Left foot ulcer HPI: This is a 65yoWM clinic pt of [facility] and Dr. Hearn who presented with tachycardia and fever with a draining diabetic ulcer on his left foot to the ER found to have sepsis placed on Cefepime, Vanc, IV fluids and placed him in cardiac step down. Dr. Hearn has been consulted and pt will need a debridement o f the abscess by Dr. Jimenes. MRI will be contained to confirm that suspicion. Subjective/Events-last exam Pt doing pretty well Updated Pt on the fact recurrent cellulitis places him at risk for another cellulitis of the foot Labs remain stable Blood sugars are satisfactory Antibiotics maintained Review of Systems Musculoskeletal: leg pain, foot pain Focused Exam Lactate Level 11/21/20 14:56: Lactic Acid Level 1.88 Objective Exam Vital Signs Vital Signs Date Time Temp Pulse Resp B/P (MAP) Pulse Ox O2 Delivery O2 Flow Rate FiO2 11/23/20 19:30 37.2 88 18 143/80 (101) 95 Room Air Capillary Refill : Less Than 3 Seconds General Appearance: No Apparent Distress, WD/WN, Chronically ill Respiratory: Lungs Clear Cardiovascular: Regular Rate, Rhythm Neurologic/Psychiatric: Alert, Oriented x3 Results/Procedures Lab Laboratory Tests 11/23/20 06:27 Patient resulted labs reviewed. Assessment/Plan Assessment and Plan Assess & Plan/Chief Complaint Assessment: Sepsis Left DM foot ulcer DM Non-compliance Gout CRI Plan: IV abx Monitor closely 11/23/20: Monitor creat IV abx JULIA REYNOSO DO November 23, 2020 06:05
[2020-11-23 06:37] LABS: BASOPHILS % (AUTO) 0 % (0-10); EOSINOPHILS # (AUTO) 0.5 10^3/uL (0.0-0.3); EOSINOPHILS % (AUTO) 7 % (0-10); HEMATOCRIT 40 % (40-54); HEMOGLOBIN 12.9 g/dL (13.3-17.7); LYMPHOCYTES # (AUTO) 0.7 10^3/uL (1.0-4.0); LYMPHOCYTES % (AUTO) 9 % (12-44); MEAN CORPUSCULAR HEMOGLOBIN 29 pg (25-34); MEAN CORPUSCULAR HGB CONC 33 g/dL (32-36); MEAN CORPUSCULAR VOLUME 89 fL (80-99); MEAN PLATELET VOLUME 9.2 fL (9.0-12.2); MONOCYTES % (AUTO) 13 % (0-12); NEUTROPHILS # (AUTO) 5.8 10^3/uL (1.8-7.8); NEUTROPHILS % (AUTO) 71 % (42-75); PLATELET COUNT 173 10^3/uL (130-400); WHITE BLOOD COUNT 8.1 10^3/uL (4.3-11.0)
[2020-11-23 06:48] LABS: ALBUMIN 3.3 GM/DL (3.2-4.5)
[2020-11-23 06:49] LABS: CALCIUM 8.3 MG/DL (8.5-10.1)
[2020-11-23 06:51] LABS: TOTAL PROTEIN 6.8 GM/DL (6.4-8.2)
[2020-11-23 06:52] LABS: BILIRUBIN,TOTAL 1.3 MG/DL (0.1-1.0)
[2020-11-23 06:54] LABS: CREATININE SERUM 1.43 MG/DL (0.60-1.30)
[2020-11-23 07:37] VITALS: BP 125/78
[2020-11-23] MEDS: ALLOPURINOL 300 MG (ZYLOPRIM) TAB PO SCH (09:12)
[2020-11-23] MEDS: SENNA W/DOCUSATE (SENOKOT S) TABLET PO SCH ×2 (09:12→20:01)
[2020-11-23] MEDS: ENOXAPARIN 40 MG/0.4 ML (LOVENOX) SYR SC SCH (09:12)
[2020-11-23 11:22] VITALS: BP 131/81
[2020-11-23 15:33] VITALS: BP 116/63
[2020-11-23 19:30] VITALS: BP 143/80
--- NOTE | 2020-11-23 19:35 | Wound Care Assessment ---
Wound Care Assessment Date Seen by Provider: November 23, 2020 Time Seen by Provider: 19:00 Chief Complaint Pain and swelling L foot. HPI The patient is a 65 year old male with sepsis related to abscess L medial foot, related to healing L 1st metatarsal head ulcer. His blood glucose levels have been good. Will order MRI to define extent of disease. 11/23/20 -- Interval Note: Patient examined. The patient is afebrile, with normalized white count. Foot remains swollen, but no focal area of inflammation. The wound shows no inflammation. MRI negative for drainable fluid collection. Would recommend transition to oral antibiotic and discharge. Can follow-up as out-patient. Smoking Status: Never a Smoker Recreational Drug Use: No Alcohol Use: Denies Use Exam Vital Signs Date Time Temp Pulse Resp B/P (MAP) Pulse Ox O2 Delivery O2 Flow Rate FiO2 11/23/20 15:33 36.8 91 20 116/63 (80) 93 Room Air Capillary Refill : Less Than 3 Seconds Results Laboratory Tests 11/22/20 20:00: Glucometer 142H 11/23/20 05:44: Glucometer 161H 11/23/20 06:27: White Blood Count 8.1, Red Blood Count 4.47, Hemoglobin 12.9L, Hematocrit 40, Mean Corpuscular Volume 89, Mean Corpuscular Hemoglobin 29, Mean Corpuscular Hemoglobin Concent 33, Red Cell Distribution Width 13.3, Platelet Count 173, Mean Platelet Volume 9.2, Immature Granulocyte % (Auto) 1, Neutrophils (%) (Auto) 71, Lymphocytes (%) (Auto) 9L, Monocytes (%) (Auto) 13H, Eosinophils (%) (Auto) 7, Basophils (%) (Auto) 0, Neutrophils # (Auto) 5.8, Lymphocytes # (Auto) 0.7L, Monocytes # (Auto) 1.0, Eosinophils # (Auto) 0.5H, Basophils # (Auto) 0.0, Immature Granulocyte # (Auto) 0.1, Sodium Level 138, Potassium Level 4.0, Chloride Level 106, Carbon Dioxide Level 23, Anion Gap 9, Blood Urea Nitrogen 21H, Creatinine 1.43H, Estimat Glomerular Filtration Rate 50, BUN/Creatinine Ratio 15, Glucose Level 132H, Calcium Level 8.3L, Corrected Calcium 8.9, Total Bilirubin 1.3H, Aspartate Amino Transf (AST/SGOT) 31, Alanine Aminotransferase (ALT/SGPT) 39, Alkaline Phosphatase 73, Total Protein 6.8, Albumin 3.3 11/23/20 11:09: Glucometer 169H 11/23/20 15:04: Glucometer 167H Microbiology 11/21/20 Blood Culture - Preliminary, Resulted No growth SLADE VILLA MD November 23, 2020 19:34
[2020-11-23] MEDS: VANCOMYCIN 2000 MG/NS 500 ML IVPB IV SCH ×2 (20:00)
--- NOTE | 2020-11-23 21:43 | Progress Note - Surgery ---
Subjective Date Seen by a Provider: November 23, 2020 Time Seen by a Provider: 08:36 Subjective/Events-last exam Patient states his feet are doing better. Patient states the redness is gone down. He is not having any tenderness really in them. Patient had MRI performed yesterday of the left foot which did not demonstrate any osteomyelitis, left first metatarsophalangeal joint effusion. Patient continues to have wound care to the right and left feet on the plantar surface with ulcers. Patient has chronic venous stasis of bilateral lower extremities which has not changed. No new complaints. Denies nausea vomiting fever sweats chills shortness of breath or chest pain at this time. Focused Exam Lactate Level 11/21/20 14:56: Lactic Acid Level 1.88 Objective Exam Vital Signs Date Time Temp Pulse Resp B/P (MAP) Pulse Ox O2 Delivery O2 Flow Rate FiO2 11/23/20 19:30 37.2 88 18 143/80 (101) 95 Room Air 11/23/20 15:33 36.8 91 20 116/63 (80) 93 Room Air 11/23/20 11:22 36.7 86 16 131/81 (98) 98 Room Air 11/23/20 09:00 96 Room Air 11/23/20 07:37 36.2 82 16 125/78 (94) 94 Room Air 11/23/20 03:51 36.2 75 18 119/59 (79) 97 Room Air 11/22/20 23:20 36.6 100 18 127/62 (83) 93 Room Air 11/22/20 21:39 37.8 I & O 11/23/20 06:59 Intake Total 1515 ml Output Total 3575 ml Balance -2060 ml Capillary Refill : Less Than 3 Seconds General Appearance: No Apparent Distress, WD/WN, Chronically ill Neck: Non Tender, Supple Respiratory: Chest Non Tender, No Accessory Muscle Use, No Respiratory Distress Cardiovascular: Regular Rate, Rhythm, No JVD Gastrointestinal: non tender, soft, no organomegaly, no pulsatile mass Extremity: Swelling (Bilateral,), Other (Plantar surface ulceration left and right foot) Neurologic/Psychiatric: Alert, Oriented x3 Skin: Normal Color, Warm/Dry, Other (Bilateral chronic changes venous stasis) Lymphatic: No Adenopathy Results Lab Laboratory Tests 11/23/20 05:44: Glucometer 161H 11/23/20 06:27: White Blood Count 8.1, Red Blood Count 4.47, Hemoglobin 12.9L, Hematocrit 40, Mean Corpuscular Volume 89, Mean Corpuscular Hemoglobin 29, Mean Corpuscular Hemoglobin Concent 33, Red Cell Distribution Width 13.3, Platelet Count 173, Mean Platelet Volume 9.2, Immature Granulocyte % (Auto) 1, Neutrophils (%) (Auto) 71, Lymphocytes (%) (Auto) 9L, Monocytes (%) (Auto) 13H, Eosinophils (%) (Auto) 7, Basophils (%) (Auto) 0, Neutrophils # (Auto) 5.8, Lymphocytes # (Auto) 0.7L, Monocytes # (Auto) 1.0, Eosinophils # (Auto) 0.5H, Basophils # (Auto) 0.0, Immature Granulocyte # (Auto) 0.1, Sodium Level 138, Potassium Level 4.0, Chloride Level 106, Carbon Dioxide Level 23, Anion Gap 9, Blood Urea Nitrogen 21H, Creatinine 1.43H, Estimat Glomerular Filtration Rate 50, BUN/Creatinine Ratio 15, Glucose Level 132H, Calcium Level 8.3L, Corrected Calcium 8.9, Total Bilirubin 1.3H, Aspartate Amino Transf (AST/SGOT) 31, Alanine Aminotransferase (ALT/SGPT) 39, Alkaline Phosphatase 73, Total Protein 6.8, Albumin 3.3 11/23/20 11:09: Glucometer 169H 11/23/20 15:04: Glucometer 167H 11/23/20 20:00: Glucometer 161H Microbiology 11/21/20 Blood Culture - Preliminary, Resulted No growth Assessment/Plan Assessment/Plan Assessment/Plan Left Foot Wound - no osteomyelitis per MRI Chronic Venous stasis changes - B/L legs DM - uncontrolled Bilateral plantar foot ulcers Pt is seeing wound care already. Continue current wound care bilateral feet. No surgical intervention at this time. Patient continue with wound care. Please call if needed will sign off MICHAELLE COLEMAN DO November 23, 2020 21:43
[2020-11-23 23:39] VITALS: BP 138/78
[2020-11-24] MEDS: CEFEPIME 2,000 MG/SWFI 20 ML IV PUSH IV SCH ×2 (04:45)
[2020-11-24 05:43] LABS: BASOPHILS % (AUTO) 1 % (0-10); EOSINOPHILS # (AUTO) 0.5 10^3/uL (0.0-0.3); EOSINOPHILS % (AUTO) 7 % (0-10); HEMATOCRIT 37 % (40-54); HEMOGLOBIN 12.2 g/dL (13.3-17.7); LYMPHOCYTES # (AUTO) 0.8 10^3/uL (1.0-4.0); LYMPHOCYTES % (AUTO) 11 % (12-44); MEAN CORPUSCULAR HEMOGLOBIN 29 pg (25-34); MEAN CORPUSCULAR HGB CONC 33 g/dL (32-36); MEAN CORPUSCULAR VOLUME 88 fL (80-99); MEAN PLATELET VOLUME 8.9 fL (9.0-12.2); MONOCYTES # (AUTO) 0.9 10^3/uL (0.0-1.0); MONOCYTES % (AUTO) 12 % (0-12); NEUTROPHILS # (AUTO) 4.9 10^3/uL (1.8-7.8); NEUTROPHILS % (AUTO) 69 % (42-75); PLATELET COUNT 183 10^3/uL (130-400); WHITE BLOOD COUNT 7.1 10^3/uL (4.3-11.0)
[2020-11-24 05:58] LABS: ALBUMIN 3.3 GM/DL (3.2-4.5)
[2020-11-24 05:59] LABS: CALCIUM 8.3 MG/DL (8.5-10.1)
[2020-11-24 06:01] LABS: TOTAL PROTEIN 6.7 GM/DL (6.4-8.2)
[2020-11-24 06:02] LABS: BILIRUBIN,TOTAL 1.1 MG/DL (0.1-1.0)
[2020-11-24 06:04] LABS: CREATININE SERUM 1.23 MG/DL (0.60-1.30)
[2020-11-24] MEDS: inSUlin ASPART (NovoLOG) 1 UNIT/0.01 ML (CHARGE PER UNIT) SC SCH ×2 (06:04→11:32)
[2020-11-24 07:19] VITALS: BP 112/67
[2020-11-24] MEDS: ALLOPURINOL 300 MG (ZYLOPRIM) TAB PO SCH (08:53)
[2020-11-24] MEDS: SENNA W/DOCUSATE (SENOKOT S) TABLET PO SCH (08:53)
[2020-11-24] MEDS: ENOXAPARIN 40 MG/0.4 ML (LOVENOX) SYR SC SCH (10:15)
[2020-11-24] MEDS: NS IV 1000 ML 1,000 ML IV SCH (11:33)
[2020-11-24] MEDS ORDERED: ACHD5005 PO ×2 (11:39)
[2020-11-24] MEDS ORDERED: CANA100T PO ×2 (11:39)
[2020-11-24] MEDS ORDERED: CEFD300C3 PO ×2 (11:39)
[2020-11-24] MEDS ORDERED: LINE600T12 PO ×2 (11:39)
[2020-11-24] MEDS ORDERED: ATOR20TA66 PO ×2 (11:39)
--- NOTE | 2020-11-24 11:40 | Discharge Summary ---
Discharge Summary Hospital Course Was the Problem List Reviewed?: Yes Problems/Dx: (1) Cellulitis of left foot Status: Acute (2) Diabetic ulcer of left foot Status: Acute Qualifiers: Qualified Codes: E13.621 - Other specified diabetes mellitus with foot ulcer; L97.429 - Non-pressure chronic ulcer of left heel and midfoot with unspecified severity (3) MAGALI (acute kidney injury) Status: Resolved (4) Non-insulin dependent type 2 diabetes mellitus Status: Chronic (5) Hypertension Status: Chronic (6) Sepsis Hospital Course Date of Admission: November 21, 2020 at 19:40 Admission Diagnosis : Family Physician/Provider: Nik Avina MD Date of Discharge: 11/24/20 Discharge Diagnosis: left foot cellulitis with ulcer, MAGALI, DM Hospital Course: Hospital Course: Pt had an uneventful hospital course. He was admitted for foot cellulitis with diabetic ulcer. MRI revealed no abcess so cellulitis was treated with broad spectrum antibiotics. Dr. Jimenes was consulted along with Dr. Hearn. He had resolution of the acute kidney injury on chronic renal insufficiency. Labs remained stable otherwise and he was discharged in improved condition on seven more days of antibiotics of Zyvox and Omnicef. Labs and Pending Lab Test: Laboratory Tests 11/23/20 15:04: Glucometer 167H 11/23/20 20:00: Glucometer 161H 11/24/20 05:33: White Blood Count 7.1, Red Blood Count 4.20L, Hemoglobin 12.2L, Hematocrit 37L, Mean Corpuscular Volume 88, Mean Corpuscular Hemoglobin 29, Mean Corpuscular He moglobin Concent 33, Red Cell Distribution Width 13.2, Platelet Count 183, Mean Platelet Volume 8.9L, Immature Granulocyte % (Auto) 0, Neutrophils (%) (Auto) 69, Lymphocytes (%) (Auto) 11L, Monocytes (%) (Auto) 12, Eosinophils (%) (Auto) 7, Basophils (%) (Auto) 1, Neutrophils # (Auto) 4.9, Lymphocytes # (Auto) 0.8L, Monocytes # (Auto) 0.9, Eosinophils # (Auto) 0.5H, Basophils # (Auto) 0.0, Immature Granulocyte # (Auto) 0.0, Sodium Level 138, Potassium Level 4.0, Chloride Level 107, Carbon Dioxide Level 22, Anion Gap 9, Blood Urea Nitrogen 19H, Creatinine 1.23, Estimat Glomerular Filtration Rate 59, BUN/Creatinine Ratio 15, Glucose Level 128H, Calcium Level 8.3L, Corrected Calcium 8.9, Total Bilirubin 1.1H, Aspartate Amino Transf (AST/SGOT) 54H, Alanine Aminotransferase (ALT/SGPT) 85H, Alkaline Phosphatase 93, Total Protein 6.7, Albumin 3.3 11/24/20 11:05: Glucometer 159H Microbiology 11/21/20 Blood Culture - Preliminary, Resulted No growth Home Meds Active Zyvox (Linezolid) 600 Mg Tablet 600 Mg PO BID Cefdinir 300 Mg Capsule 300 Mg PO BID Invokana (Canagliflozin) 100 Mg Tablet 100 Mg PO DAILY Atorvastatin Calcium 20 Mg Tablet 20 Mg PO DAILY Reported Metformin HCl 500 Mg Tablet 500 Mg PO BID Allopurinol 300 Mg Tablet 300 Mg PO DAILY Lisinopril-Hctz 20-25 mg Tab (Lisinopril/Hydrochlorothiazide) 1 Each Tablet 1 Each PO DAILY Aspirin EC (Aspirin) 325 Mg Tablet.dr 325-650 Mg PO Q6H PRN Assessment/Pt Instructions [facility] 1 week Wound care Discharge Planning: <30 minutes discharge planning Discharge Instructions Discharge Diet: ADA Diet Activity as Tolerated: Yes Discharge Physical Examination Vital Signs Vital Signs Date Time Temp Pulse Resp B/P (MAP) Pulse Ox O2 Delivery O2 Flow Rate FiO2 11/24/20 09:00 96 Room Air 11/24/20 07:19 36.8 87 20 112/67 (82) General Appearance: No Apparent Distress, WD/WN Respiratory: Lungs Clear Cardiovascular: Regular Rate, Rhythm Neurologic/Psychiatric: Alert, Oriented x3 Allergies: Coded Allergies: Penicillins (Verified Allergy, Unknown, 08/02/20) Discharge Summary Date of Admission November 21, 2020 at 19:40 Date of Discharge Discharge Date: November 24, 2020 Admission Diagnosis Assessment: Sepsis Left DM foot ulcer DM Non-compliance Gout Plan: IV abx Monitor closely Discharge Diagnosis Assessment: Sepsis Left DM foot ulcer DM Non-compliance Gout CRI Plan: IV abx Monitor closely 11/23/20: Monitor creat IV abx JULIA REYNOSO DO November 24, 2020 11:40
[2020-11-24 13:30] VITALS: BP 112/67
[2020-11-24] MEDS ORDERED: TROUGH ORDER-PHARMACY XX NR (20:00)
== END 2020-11-24 13:30 | disposition home or self-care (01) | DRG 872 ==
LOC: EDUNIT# 14:36 → ER FS 14:38 → ICU 19:40 → 4TH 11-22 13:29
PROVIDERS: ADMIT Internal Medicine; ATTEND Internal Medicine
DX: A41.9 Sepsis, unspecified organism (principal); L03.116 Cellulitis of left lower limb; N17.9 Acute kidney failure, unspecified; E11.621 Type 2 diabetes mellitus with foot ulcer; E11.65 Type 2 diabetes mellitus with hyperglycemia; L97.529 Non-pressure chronic ulcer of other part of left foot with unspecified severity; I87.8 Other specified disorders of veins; I12.9 Hypertensive chronic kidney disease with stage 1 through stage 4 chronic kidney disease, or unspecified chronic kidney disease; E11.22 Type 2 diabetes mellitus with diabetic chronic kidney disease; N18.9 Chronic kidney disease, unspecified; Z79.84 Long term (current) use of oral hypoglycemic drugs; M10.9 Gout, unspecified; E78.00 Pure hypercholesterolemia, unspecified; Z91.19 Patient's noncompliance with other medical treatment and regimen; Z79.2 Long term (current) use of antibiotics; Z79.82 Long term (current) use of aspirin; Z88.0 Allergy status to penicillin
CPT/HCPCS: 36415; 71045; 73630; 80053; 82947; 83605; 85007; 85025; 85027; 85610; 85730; 87040

== ENCOUNTER → 2020-12-08 | Outpatient (CLI) | payer OTHER ==
[~2020-12-08] MED LIST changes: +ACHD5005 PO; +LINE600T12 PO
== END ==
LOC: WOUNDCARE 14:32
PROVIDERS: ATTEND Surgery
DX: I96 Gangrene, not elsewhere classified (principal); L97.522 Non-pressure chronic ulcer of other part of left foot with fat layer exposed; E11.621 Type 2 diabetes mellitus with foot ulcer; E11.42 Type 2 diabetes mellitus with diabetic polyneuropathy; L97.512 Non-pressure chronic ulcer of other part of right foot with fat layer exposed; I70.245 Atherosclerosis of native arteries of left leg with ulceration of other part of foot; I87.322 Chronic venous hypertension (idiopathic) with inflammation of left lower extremity
CPT/HCPCS: 11042; A6197; G0463

== ENCOUNTER → 2020-12-15 | Outpatient (CLI) | payer OTHER | LOC: WOUNDCARE 15:12 | PROVIDERS: ATTEND Surgery | DX: E11.621 Type 2 diabetes mellitus with foot ulcer (principal); E11.42 Type 2 diabetes mellitus with diabetic polyneuropathy; L97.512 Non-pressure chronic ulcer of other part of right foot with fat layer exposed; I70.245 Atherosclerosis of native arteries of left leg with ulceration of other part of foot; I87.322 Chronic venous hypertension (idiopathic) with inflammation of left lower extremity; E11.52 Type 2 diabetes mellitus with diabetic peripheral angiopathy with gangrene | CPT/HCPCS: 11042; G0463 ==

== ENCOUNTER → 2020-12-30 | Outpatient (CLI) | payer OTHER | LOC: WOUNDCARE 13:34 | PROVIDERS: ATTEND Orthopaedic Surgery Hand Surgery | DX: E11.621 Type 2 diabetes mellitus with foot ulcer (principal); I96 Gangrene, not elsewhere classified; E11.42 Type 2 diabetes mellitus with diabetic polyneuropathy; L97.511 Non-pressure chronic ulcer of other part of right foot limited to breakdown of skin; I70.245 Atherosclerosis of native arteries of left leg with ulceration of other part of foot; I87.322 Chronic venous hypertension (idiopathic) with inflammation of left lower extremity | CPT/HCPCS: 97597; G0463 ==

== ENCOUNTER → 2021-01-05 | Outpatient (CLI) | payer OTHER | LOC: WOUNDCARE 14:53 | PROVIDERS: ATTEND Surgery | DX: E11.621 Type 2 diabetes mellitus with foot ulcer (principal); E11.42 Type 2 diabetes mellitus with diabetic polyneuropathy; L97.511 Non-pressure chronic ulcer of other part of right foot limited to breakdown of skin; I70.245 Atherosclerosis of native arteries of left leg with ulceration of other part of foot; I87.322 Chronic venous hypertension (idiopathic) with inflammation of left lower extremity | CPT/HCPCS: 99212 ==

== ENCOUNTER 2021-04-21 13:21 | Outpatient (RCR) | payer OTHER ==
[2021-02-22 09:29] VITALS: BP_SYST 0; BP_SYST 159; BP_DIAS 0; BP_DIAS 89
[2021-02-22 10:30] LABS: CALCIUM 9.4 MG/DL (8.5-10.1); CREATININE SERUM 1.52 MG/DL (0.60-1.30); POTASSIUM 4.2 MMOL/L (3.6-5.0)
[2021-02-23 09:15] VITALS: BP 136/81
[2021-02-23] MEDS: DAPTOMYCIN IV SCH (09:19)
[2021-02-23] MEDS: NS IV SCH (09:19)
[2021-02-24 10:00] VITALS: BP 119/79
[2021-02-24] MEDS: NS IV SCH (10:24)
[2021-02-24] MEDS: DAPTOMYCIN IV SCH (10:24)
[2021-03-03 12:55] VITALS: BP 126/79
[2021-03-10 13:00] VITALS: BP 112/74
[2021-03-17 12:58] VITALS: BP 117/74
[2021-03-24 13:05] VITALS: BP 123/81
[2021-03-31 13:30] VITALS: BP 118/71
[2021-04-07 13:12] VITALS: BP 137/89
[2021-04-14 12:59] VITALS: BP 133/85
[~2021-04-21] VITALS: Ht 188 cm; Wt 125.9 kg
[~2021-04-21 13:21] MED LIST changes: +TROUGH ORDER-PHARMACY XX NR; +VANCOMYCIN 2000 MG/NS 500 ML IVPB IV SCH; +VANCOMYCIN INJECTION 2,500 MG in NS IV 500 ML 500 ML IV NR
[2021-04-21 13:40] VITALS: BP 128/80
== END 2021-04-21 13:56 | disposition home or self-care (01) ==
LOC: SDC 13:21
PROVIDERS: ATTEND Surgery
DX: Z45.2 Encounter for adjustment and management of vascular access device (principal)
CPT/HCPCS: 36569; 76937; 80048; 96365; 96366; C1751; 36415; 99211

== ENCOUNTER → 2021-07-13 | Outpatient (CLI) | payer SELFPAY ==
[~2021-07-13] MED LIST changes: -LISI1TAB26 PO; +LISI1TAB48 PO; -TROUGH ORDER-PHARMACY XX NR; -VANCOMYCIN 2000 MG/NS 500 ML IVPB IV SCH; -VANCOMYCIN INJECTION 2,500 MG in NS IV 500 ML 500 ML IV NR
--- NOTE | 2021-07-13 18:20 | Diagnostic Imaging Report ---
INDICATION: Osteomyelitis. COMPARISON: 11/22/2020. FINDINGS: Three radiographic views of the left foot were obtained. Since the previous exam, there has been interval progression of fragmented destruction of the proximal portions of the 1st proximal phalanx as well as the distal portions of the 1st metatarsal epicentered at the 1st metatarsal phalangeal joint space. Similar in appearance is also noted involving the head of the 2nd metatarsal. This appears to be slightly progressed as well. Note is made that several of the osseous fragments have sclerotic borders. No acute fracture is seen. Other joint spaces are maintained. No unexpected radiopaque foreign bodies are identified. IMPRESSION: Chronic destructive appearance to the 1st and 2nd metatarsal phalangeal joint spaces, as described above. Underlying acute osteomyelitis cannot be excluded based on radiographs. Correlation with MRI is recommended. Dictated by: Dictated on workstation # [id number]
== END ==
LOC: RAD 15:31
PROVIDERS: ATTEND Surgery
DX: M86.8X7 Other osteomyelitis, ankle and foot (principal)
CPT/HCPCS: 73630

== ENCOUNTER → 2022-11-28 | Outpatient (CLI) | payer MEDICARE ==
[~2022-11-28] MED LIST changes: +GADOTERATE 0.5 MMOL/ML (CLARISCAN) 20 ML VIAL IV ONE; +GADOTERATE 0.5 MMOL/ML (CLARISCAN) 5 ML VIAL IV ONE
--- NOTE | 2022-11-28 17:03 | Diagnostic Imaging Report ---
PROCEDURE: MR imaging right lower extremity with and without contrast. TECHNIQUE: Multiplanar, multisequence pre and post contrast-enhanced MR imaging of the right lower extremity was accomplished. INDICATION: Ulceration of the right foot. COMPARISON: Radiographs from 08/02/2020. FINDINGS: No acute fracture is seen in the right foot. There is a soft tissue ulceration at the plantar aspect of the fifth MTP joint. There is underlying soft tissue edema with surrounding enhancement. There are no findings of osteomyelitis at this time. No rim-enhancing fluid collection is seen. There are degenerative changes in the first, fourth and fifth metatarsophalangeal joints. There appear to be claw toe deformities of the lesser toes. The Lisfranc ligament is intact. There is generalized muscular atrophy, likely neurogenic. IMPRESSION: 1. Soft tissue ulceration plantar to the right fifth MTP joint. There is adjacent soft tissue infection without rim-enhancing fluid collections or osteomyelitis. 2. Degenerative changes in the right foot. Dictated by: Dictated on workstation # [id number]
--- NOTE | 2022-11-28 17:10 | Diagnostic Imaging Report ---
PROCEDURE: MRI left lower extremity with and without contrast. TECHNIQUE: Multiplanar, multisequence pre and post contrast-enhanced MRI of the left lower extremity was accomplished. INDICATION: Soft tissue ulceration of the left foot COMPARISON: 11/22/2020 FINDINGS: There is a soft tissue ulceration plantar to the 3rd metatarsal. This tracks up to the bone. There is enhancing bone marrow edema throughout the 3rd metatarsal shaft extending down to the base as well as T1-weighted marrow replacement. There appears to be significant erosion of the 3rd metacarpal head. There is bone marrow edema and T1-weighted marrow replacement of the shaft and base of the 3rd toe proximal phalanx. There is enhancing edema in the distal shaft, neck and head of the 2nd metatarsal with T1-weighted marrow replacement. There is also mild edema in the 2nd toe proximal phalanx. There is hypointensity on T1-weighted imaging of the 4th metatarsal base. There does not appear to be associated edema or enhancement. There are cystlike changes from degeneration. There is advanced degenerative change and moderate hallux valgus of the 1st MTP joint. There are advanced degenerative changes in the 3rd through 5th tarsometatarsal joints. The Lisfranc ligament is intact. There is moderate generalized muscular atrophy. From the plantar ulceration there is an enhancing tract extending up to the 3rd and 2nd metatarsals which measures about 5 mm wide. No discrete rim-enhancing drainable fluid collection is seen. There is superficial and deep soft tissue infection of the forefoot extending into the toes, particularly the 3rd toe. IMPRESSION: 1. Osteomyelitis of the left 3rd metatarsal and proximal phalanx. Osteomyelitis of the 2nd metatarsal. 2. Osteitis without osteomyelitis of the 2nd proximal phalanx. 3. Plantar soft tissue ulceration tracking up to the 2nd and 3rd metatarsals, with surrounding soft tissue infection. No drainable fluid collection is seen. 4. Degenerative changes in the left foot, most severe at the 1st MTP joint. Dictated by: Dictated on workstation # [id number]
== END ==
LOC: RAD 13:09
PROVIDERS: ATTEND Nurse Practitioner
DX: L97.519 Non-pressure chronic ulcer of other part of right foot with unspecified severity (principal); M19.071 Primary osteoarthritis, right ankle and foot
CPT/HCPCS: 73720

== ENCOUNTER 2022-12-18 08:27 | Outpatient (RCR) | payer MEDICARE ==
[2022-12-05] MEDS: VANCOMYCIN 1 GM/NS 250 ML IVPB IV SCH ×2 (12:40)
[2022-12-05 12:48] VITALS: BP 121/71
[2022-12-06 12:45] VITALS: BP 139/75
[2022-12-06] MEDS: VANCOMYCIN 1 GM/NS 250 ML IVPB IV SCH ×2 (12:49)
[2022-12-06 12:56] LABS: BASOPHILS # (AUTO) 0.1 10^3/uL (0.0-0.1); BASOPHILS % (AUTO) 1 % (0-10); EOSINOPHILS # (AUTO) 0.3 10^3/uL (0.0-0.3); EOSINOPHILS % (AUTO) 5 % (0-10); HEMATOCRIT 38 % (40-54); HEMOGLOBIN 12.6 g/dL (13.3-17.7); LYMPHOCYTES # (AUTO) 1.3 10^3/uL (1.0-4.0); LYMPHOCYTES % (AUTO) 20 % (12-44); MEAN CORPUSCULAR HEMOGLOBIN 28 pg (25-34); MEAN CORPUSCULAR HGB CONC 33 g/dL (32-36); MEAN CORPUSCULAR VOLUME 86 fL (80-99); MEAN PLATELET VOLUME 8.8 fL (9.0-12.2); MONOCYTES # (AUTO) 0.7 10^3/uL (0.0-1.0); MONOCYTES % (AUTO) 10 % (0-12); NEUTROPHILS % (AUTO) 62 % (42-75); PLATELET COUNT 231 10^3/uL (130-400); WHITE BLOOD COUNT 6.5 10^3/uL (4.3-11.0)
[2022-12-06 13:09] LABS: ALBUMIN 3.7 GM/DL (3.2-4.5)
[2022-12-06 13:10] LABS: POTASSIUM 3.8 MMOL/L (3.6-5.0)
[2022-12-06 13:11] LABS: CALCIUM 8.7 MG/DL (8.5-10.1)
[2022-12-06 13:12] LABS: TOTAL PROTEIN 6.6 GM/DL (6.4-8.2)
[2022-12-06 13:14] LABS: BILIRUBIN,TOTAL 0.9 MG/DL (0.1-1.0)
[2022-12-06 13:16] LABS: CREATININE SERUM 1.24 MG/DL (0.60-1.30)
[2022-12-06 13:25] LABS: VANCOMYCIN,TROUGH 2.8 UG/ML (10.0-20.0)
[2022-12-13 11:20] VITALS: BP 160/83
[2022-12-13 11:55] LABS: BASOPHILS # (AUTO) 0.1 10^3/uL (0.0-0.1); BASOPHILS % (AUTO) 1 % (0-10); EOSINOPHILS # (AUTO) 0.4 10^3/uL (0.0-0.3); EOSINOPHILS % (AUTO) 5 % (0-10); HEMATOCRIT 39 % (40-54); LYMPHOCYTES # (AUTO) 1.3 10^3/uL (1.0-4.0); LYMPHOCYTES % (AUTO) 18 % (12-44); MEAN CORPUSCULAR HEMOGLOBIN 29 pg (25-34); MEAN CORPUSCULAR HGB CONC 33 g/dL (32-36); MEAN CORPUSCULAR VOLUME 86 fL (80-99); MEAN PLATELET VOLUME 9.1 fL (9.0-12.2); MONOCYTES # (AUTO) 0.7 10^3/uL (0.0-1.0); MONOCYTES % (AUTO) 10 % (0-12); NEUTROPHILS # (AUTO) 4.7 10^3/uL (1.8-7.8); NEUTROPHILS % (AUTO) 66 % (42-75); PLATELET COUNT 254 10^3/uL (130-400); WHITE BLOOD COUNT 7.1 10^3/uL (4.3-11.0)
[2022-12-13 12:15] LABS: ALBUMIN 3.8 GM/DL (3.2-4.5); BILIRUBIN,TOTAL 0.9 MG/DL (0.1-1.0); CALCIUM 8.6 MG/DL (8.5-10.1); CREATININE SERUM 1.37 MG/DL (0.60-1.30); POTASSIUM 3.8 MMOL/L (3.6-5.0); TOTAL PROTEIN 6.9 GM/DL (6.4-8.2)
[~2022-12-18] VITALS: Ht 187 cm; Wt 122.7 kg
[~2022-12-18 08:27] MED LIST changes: -GADOTERATE 0.5 MMOL/ML (CLARISCAN) 20 ML VIAL IV ONE; -GADOTERATE 0.5 MMOL/ML (CLARISCAN) 5 ML VIAL IV ONE
[2022-12-18 08:51] VITALS: BP 174/100
== END 2022-12-19 | disposition home or self-care (01) ==
LOC: SDC 08:27
PROVIDERS: ATTEND Surgery
DX: M86.9 Osteomyelitis, unspecified (principal)
CPT/HCPCS: 36569; 76937; 96365; C1751; 36415; 80053; 80202; 85025; 99211

== ENCOUNTER 2023-01-15 07:53 | Outpatient (RCR) | payer MEDICARE ==
[2022-12-25 08:20] VITALS: BP 187/96
[2022-12-25 08:35] LABS: BASOPHILS # (AUTO) 0.1 10^3/uL (0.0-0.1); BASOPHILS % (AUTO) 1 % (0-10); EOSINOPHILS # (AUTO) 0.5 10^3/uL (0.0-0.3); EOSINOPHILS % (AUTO) 6 % (0-10); HEMATOCRIT 39 % (40-54); HEMOGLOBIN 12.8 g/dL (13.3-17.7); LYMPHOCYTES # (AUTO) 0.9 10^3/uL (1.0-4.0); LYMPHOCYTES % (AUTO) 12 % (12-44); MEAN CORPUSCULAR HEMOGLOBIN 29 pg (25-34); MEAN CORPUSCULAR HGB CONC 33 g/dL (32-36); MEAN CORPUSCULAR VOLUME 87 fL (80-99); MONOCYTES # (AUTO) 0.7 10^3/uL (0.0-1.0); MONOCYTES % (AUTO) 9 % (0-12); NEUTROPHILS # (AUTO) 5.3 10^3/uL (1.8-7.8); NEUTROPHILS % (AUTO) 71 % (42-75); PLATELET COUNT 222 10^3/uL (130-400); WHITE BLOOD COUNT 7.4 10^3/uL (4.3-11.0)
[2022-12-25 09:00] LABS: ALBUMIN 3.7 GM/DL (3.2-4.5); BILIRUBIN,TOTAL 1.7 MG/DL (0.1-1.0); CALCIUM 8.4 MG/DL (8.5-10.1); CREATININE SERUM 1.29 MG/DL (0.60-1.30); POTASSIUM 3.5 MMOL/L (3.6-5.0); TOTAL PROTEIN 6.4 GM/DL (6.4-8.2)
[2023-01-01 08:30] VITALS: BP 177/92
[2023-01-01 08:31] LABS: BASOPHILS # (AUTO) 0.1 10^3/uL (0.0-0.1); BASOPHILS % (AUTO) 1 % (0-10); EOSINOPHILS # (AUTO) 0.4 10^3/uL (0.0-0.3); EOSINOPHILS % (AUTO) 6 % (0-10); HEMATOCRIT 43 % (40-54); LYMPHOCYTES % (AUTO) 13 % (12-44); MEAN CORPUSCULAR HEMOGLOBIN 29 pg (25-34); MEAN CORPUSCULAR HGB CONC 33 g/dL (32-36); MEAN CORPUSCULAR VOLUME 87 fL (80-99); MEAN PLATELET VOLUME 8.7 fL (9.0-12.2); MONOCYTES # (AUTO) 0.9 10^3/uL (0.0-1.0); MONOCYTES % (AUTO) 11 % (0-12); NEUTROPHILS # (AUTO) 5.2 10^3/uL (1.8-7.8); NEUTROPHILS % (AUTO) 69 % (42-75); PLATELET COUNT 244 10^3/uL (130-400); WHITE BLOOD COUNT 7.7 10^3/uL (4.3-11.0)
[2023-01-01 08:48] LABS: ALBUMIN 4.1 GM/DL (3.2-4.5); BILIRUBIN,TOTAL 2.3 MG/DL (0.1-1.0); CALCIUM 8.7 MG/DL (8.5-10.1); CREATININE SERUM 1.19 MG/DL (0.60-1.30); POTASSIUM 3.7 MMOL/L (3.6-5.0); TOTAL PROTEIN 6.9 GM/DL (6.4-8.2)
[2023-01-01 08:54] LABS: VANCOMYCIN,TROUGH 14.5 UG/ML (10.0-20.0)
--- NOTE | 2023-01-08 09:31 | Diagnostic Imaging Report ---
INDICATION: Central venous catheter assessment Single AP view of the chest is obtained with comparison made to study of 11/21/2020 Overall heart size and pulmonary vascularity are within normal limits. There is no pneumothorax or consolidation. Surgical clips are seen in the right axilla. Left upper extremity PICC is in place with catheter tip reaching the junction of brachiocephalic veins and superior vena cava. There is no evidence of pneumothorax. IMPRESSION: Left upper extremity PICC reaches junction of brachiocephalic veins and superior vena cava. Dictated by: Dictated on workstation # [id number]
[2023-01-08 09:57] LABS: BASOPHILS # (AUTO) 0.1 10^3/uL (0.0-0.1); BASOPHILS % (AUTO) 1 % (0-10); EOSINOPHILS # (AUTO) 0.4 10^3/uL (0.0-0.3); EOSINOPHILS % (AUTO) 7 % (0-10); HEMATOCRIT 47 % (40-54); HEMOGLOBIN 15.5 g/dL (13.3-17.7); LYMPHOCYTES % (AUTO) 19 % (12-44); MEAN CORPUSCULAR HEMOGLOBIN 29 pg (25-34); MEAN CORPUSCULAR HGB CONC 33 g/dL (32-36); MEAN CORPUSCULAR VOLUME 86 fL (80-99); MEAN PLATELET VOLUME 8.5 fL (9.0-12.2); MONOCYTES # (AUTO) 0.9 10^3/uL (0.0-1.0); MONOCYTES % (AUTO) 17 % (0-12); NEUTROPHILS # (AUTO) 3.1 10^3/uL (1.8-7.8); NEUTROPHILS % (AUTO) 56 % (42-75); PLATELET COUNT 206 10^3/uL (130-400); WHITE BLOOD COUNT 5.5 10^3/uL (4.3-11.0)
[2023-01-08 10:16] LABS: ALBUMIN 3.9 GM/DL (3.2-4.5); BILIRUBIN,TOTAL 1.9 MG/DL (0.1-1.0); CALCIUM 8.6 MG/DL (8.5-10.1); CREATININE SERUM 1.03 MG/DL (0.60-1.30); POTASSIUM 3.8 MMOL/L (3.6-5.0); TOTAL PROTEIN 6.6 GM/DL (6.4-8.2)
[2023-01-08 10:21] LABS: VANCOMYCIN,TROUGH 10.9 UG/ML (10.0-20.0)
[2023-01-08 11:10] VITALS: BP 177/102
[2023-01-15 08:10] LABS: BASOPHILS # (AUTO) 0.1 10^3/uL (0.0-0.1); BASOPHILS % (AUTO) 1 % (0-10); EOSINOPHILS # (AUTO) 0.4 10^3/uL (0.0-0.3); EOSINOPHILS % (AUTO) 6 % (0-10); HEMATOCRIT 44 % (40-54); HEMOGLOBIN 14.5 g/dL (13.3-17.7); LYMPHOCYTES # (AUTO) 1.1 10^3/uL (1.0-4.0); LYMPHOCYTES % (AUTO) 15 % (12-44); MEAN CORPUSCULAR HEMOGLOBIN 29 pg (25-34); MEAN CORPUSCULAR HGB CONC 33 g/dL (32-36); MEAN CORPUSCULAR VOLUME 87 fL (80-99); MEAN PLATELET VOLUME 8.5 fL (9.0-12.2); MONOCYTES # (AUTO) 0.7 10^3/uL (0.0-1.0); MONOCYTES % (AUTO) 10 % (0-12); NEUTROPHILS # (AUTO) 4.8 10^3/uL (1.8-7.8); NEUTROPHILS % (AUTO) 67 % (42-75); PLATELET COUNT 208 10^3/uL (130-400); WHITE BLOOD COUNT 7.1 10^3/uL (4.3-11.0)
[2023-01-15 08:15] VITALS: BP 169/111
[2023-01-15 08:23] LABS: ALBUMIN 3.8 GM/DL (3.2-4.5); POTASSIUM 3.6 MMOL/L (3.6-5.0)
[2023-01-15 08:24] LABS: CALCIUM 8.4 MG/DL (8.5-10.1)
[2023-01-15 08:26] LABS: TOTAL PROTEIN 6.2 GM/DL (6.4-8.2)
[2023-01-15 08:27] LABS: BILIRUBIN,TOTAL 1.6 MG/DL (0.1-1.0)
[2023-01-15 08:29] LABS: CREATININE SERUM 1.11 MG/DL (0.60-1.30)
[2023-01-15 08:38] LABS: VANCOMYCIN,TROUGH 11.7 UG/ML (10.0-20.0)
== END 2023-01-18 | disposition home or self-care (01) ==
LOC: SDC 07:53
PROVIDERS: ATTEND Surgery
DX: M86.9 Osteomyelitis, unspecified (principal)
CPT/HCPCS: 80053; 80202; 85025; G0463; 36415; 36569; 71045; 76937; 99211

== ENCOUNTER 2023-02-12 09:47 | Outpatient (RCR) | payer MEDICARE ==
[2023-01-23 08:35] VITALS: BP 174/98
[2023-01-23 08:40] LABS: BASOPHILS # (AUTO) 0.1 10^3/uL (0.0-0.1); BASOPHILS % (AUTO) 1 % (0-10); EOSINOPHILS # (AUTO) 0.3 10^3/uL (0.0-0.3); EOSINOPHILS % (AUTO) 4 % (0-10); HEMATOCRIT 46 % (40-54); HEMOGLOBIN 15.2 g/dL (13.3-17.7); LYMPHOCYTES # (AUTO) 1.1 10^3/uL (1.0-4.0); LYMPHOCYTES % (AUTO) 12 % (12-44); MEAN CORPUSCULAR HEMOGLOBIN 28 pg (25-34); MEAN CORPUSCULAR HGB CONC 33 g/dL (32-36); MEAN CORPUSCULAR VOLUME 86 fL (80-99); MEAN PLATELET VOLUME 8.6 fL (9.0-12.2); MONOCYTES # (AUTO) 0.9 10^3/uL (0.0-1.0); MONOCYTES % (AUTO) 10 % (0-12); NEUTROPHILS # (AUTO) 6.3 10^3/uL (1.8-7.8); NEUTROPHILS % (AUTO) 73 % (42-75); PLATELET COUNT 224 10^3/uL (130-400); WHITE BLOOD COUNT 8.7 10^3/uL (4.3-11.0)
[2023-01-23 08:50] LABS: ALBUMIN 3.7 GM/DL (3.2-4.5); POTASSIUM 3.3 MMOL/L (3.6-5.0)
[2023-01-23 08:51] LABS: CALCIUM 8.4 MG/DL (8.5-10.1)
[2023-01-23 08:52] LABS: TOTAL PROTEIN 6.1 GM/DL (6.4-8.2)
[2023-01-23 08:54] LABS: BILIRUBIN,TOTAL 1.7 MG/DL (0.1-1.0)
[2023-01-23 08:56] LABS: CREATININE SERUM 1.02 MG/DL (0.60-1.30)
[2023-01-23 09:05] LABS: VANCOMYCIN,TROUGH 10.2 UG/ML (10.0-20.0)
[2023-01-29 08:05] VITALS: BP 165/91
[2023-01-29 08:37] LABS: BASOPHILS # (AUTO) 0.1 10^3/uL (0.0-0.1); BASOPHILS % (AUTO) 1 % (0-10); EOSINOPHILS # (AUTO) 0.4 10^3/uL (0.0-0.3); EOSINOPHILS % (AUTO) 5 % (0-10); HEMATOCRIT 46 % (40-54); HEMOGLOBIN 14.9 g/dL (13.3-17.7); LYMPHOCYTES % (AUTO) 14 % (12-44); MEAN CORPUSCULAR HEMOGLOBIN 28 pg (25-34); MEAN CORPUSCULAR HGB CONC 33 g/dL (32-36); MEAN CORPUSCULAR VOLUME 86 fL (80-99); MEAN PLATELET VOLUME 8.7 fL (9.0-12.2); MONOCYTES # (AUTO) 0.9 10^3/uL (0.0-1.0); MONOCYTES % (AUTO) 12 % (0-12); NEUTROPHILS # (AUTO) 4.9 10^3/uL (1.8-7.8); NEUTROPHILS % (AUTO) 67 % (42-75); PLATELET COUNT 214 10^3/uL (130-400); WHITE BLOOD COUNT 7.2 10^3/uL (4.3-11.0)
[2023-01-29 08:59] LABS: ALBUMIN 3.6 GM/DL (3.2-4.5); BILIRUBIN,TOTAL 1.8 MG/DL (0.1-1.0); CALCIUM 8.4 MG/DL (8.5-10.1); CREATININE SERUM 1.09 MG/DL (0.60-1.30); POTASSIUM 3.5 MMOL/L (3.6-5.0); TOTAL PROTEIN 5.7 GM/DL (6.4-8.2)
[2023-01-29 09:05] LABS: VANCOMYCIN,TROUGH 12.3 UG/ML (10.0-20.0)
[2023-02-05 08:38] VITALS: BP 141/85
[2023-02-05 09:23] LABS: HEMATOCRIT 47 % (40-54); HEMOGLOBIN 15.1 g/dL (13.3-17.7); MEAN CORPUSCULAR HEMOGLOBIN 28 pg (25-34); MEAN CORPUSCULAR HGB CONC 32 g/dL (32-36); MEAN CORPUSCULAR VOLUME 88 fL (80-99); MEAN PLATELET VOLUME 8.6 fL (9.0-12.2); PLATELET COUNT 218 10^3/uL (130-400); WHITE BLOOD COUNT 7.9 10^3/uL (4.3-11.0)
[2023-02-05 09:42] LABS: ALBUMIN 3.6 GM/DL (3.2-4.5); BILIRUBIN,TOTAL 1.7 MG/DL (0.1-1.0); CALCIUM 8.5 MG/DL (8.5-10.1); CREATININE SERUM 1.17 MG/DL (0.60-1.30); POTASSIUM 3.8 MMOL/L (3.6-5.0); TOTAL PROTEIN 6.1 GM/DL (6.4-8.2)
[~2023-02-12] VITALS: Ht 187 cm; Wt 122.7 kg
[2023-02-12 10:00] VITALS: BP 154/98
== END 2023-02-12 10:15 | disposition home or self-care (01) ==
LOC: SDC 09:47
PROVIDERS: ATTEND Surgery
DX: M86.9 Osteomyelitis, unspecified (principal)
CPT/HCPCS: 80053; 80202; 85025; G0463; 36415; 85027; 99211